=== PATIENT | female | born 1950 | race African-American/Black ===

== ENCOUNTER → 2018-02-15 | Outpatient (CLI) | payer OTHER ==
[~2018-02-15] MED LIST: ARANESP 6060 MCG/0.1 INJECTION; ASPIR 8181 MG PO; CALCITRIOL0.25 MCG PO; LISINOPRIL10 MG PO; LOPRESSOR50 PO; NEPHROCAPS SOFT1 CAP PO; NORVASC5 MG PO; PROTONIX40 M1 PO; TOPROL XL50 MG PO
[2018-02-15 10:24] VITALS: BP 139/83; BP 150/90
[2018-02-15 12:46] VITALS: BP 146/95; BP 150/88; BP 150/90
== END ==
LOC: OPONC 06:26
DX: N18.9 Chronic kidney disease, unspecified (principal); D63.1 Anemia in chronic kidney disease
CPT/HCPCS: 91030

== ENCOUNTER → 2018-03-29 | Outpatient (CLI) | payer OTHER ==
[~2018-03-29] VITALS: Ht 167.6 cm; Wt 65.8 kg
[~2018-03-29] MED LIST changes: +RENAL CAPS SOFTG1 MG PO
--- NOTE | ~2018-03-29 | P ---
[facility] [place] [address] PROCEDURE REPORT Name: IZA SINCLAIR Room #: REG [facility].#: [id number] Admission: 03/29/18 Attend Phys: Moshe Lopez MD Discharge: Date of : 50 Report #: [id number] THIS REPORT FOR: //name// CC: Torin Mitchell DO Moshe Chavira MD BRIEF HISTORY: The patient is a 67-year-old woman with recent rectal bleeding. PREOPERATIVE DIAGNOSIS: Rectal bleeding. POSTOPERATIVE DIAGNOSIS: Colon polyps x 2. MEDICATIONS: Deep sedation with propofol per anesthesia. SPECIMENS: 1. Polyp at 40 cm. 2. Polyp at 25 cm. ESTIMATED BLOOD LOSS: 3 mL. PROCEDURE: Colonoscopy to the cecum and terminal ileum with biopsy. FINDINGS: Prior to propofol sedation, procedure of colonoscopy was discussed with the patient as well as potential risks and its complications. She indicates she understands and desires to proceed. With the patient in the left lateral decubitus position, digital examination was completed, which revealed no abnormalities. Subsequently, the Olympus video colonoscope was introduced in the rectum, advanced under direct vision to the cecum. Done with minimal difficulty. The cecum was identified by the ileocecal valve and the appendiceal orifice. I was able to visualize the distal segment of terminal ileum, which was inspected and noted to be unremarkable. At that point, the scope was slowly withdrawn and careful circumferential views obtained including retroflexing the scope in the ascending colon. Upon slow withdrawal of the scope, the prep was good. Mucosa was within normal limits, normal vascular pattern and normal light reflex. As we withdrew the scope, no abnormalities were noted until the sigmoid colon was reached and at 40 cm, a diminutive polyp seen and removed by biopsy and another diminutive polyp was seen and removed by biopsy at 25 cm. The scope was further withdrawn. No additional abnormalities were seen. The scope was withdrawn in the rectum. No abnormalities were seen. However, upon retroflexion, there was a small area of erythematous mucosa, which may be an area of mild mucosal prolapse. No bleeding was seen. Significant hemorrhoids were not seen. The scope was withdrawn. The patient tolerated the procedure well. [facility] [address] [place] [address] PROCEDURE REPORT Name: IZA SINCLAIR Room #: REG [facility].#: [id number] Admission: 03/29/18 Attend Phys: Moshe Lopez MD Discharge: Date of : 50 Report #: [id number] CONDITION OF THE PATIENT UPON DISCHARGE: Following procedure, the patient drowsy, aroused, conversant and will be discharged to home when fully ambulatory. INSTRUCTIONS TO THE PATIENT AND FAMILY AT THE TIME OF DISCHARGE: As far as the bleeding, it likely came from the anal canal or possibly from a small focal area of mucosal prolapse. Suggest high fiber diet. We will follow up on the pathology of the polyps. If one or both polyps are adenomatous, she should return in 5 years. If neither is adenomatous, then 10 years would be indicated. She will return to care of Dr. Mitchell and Dr. Toño Chavira Withdrawal time from cecum was 14 minutes 47 seconds. By: 1247 [id number] Moshe Lopez MD /nt
--- NOTE | ~2018-03-29 | P ---
[facility] [place] [address] PROCEDURE REPORT Name: IZA SINCLAIR Room #: REG [facility].#: [id number] Admission: 03/29/18 Attend Phys: Moshe Lopez MD Discharge: Date of : 50 Report #: [id number] THIS REPORT FOR: //name// CC: Torin Mitchell DO Moshe Chavira MD BRIEF HISTORY: The patient is a 67-year-old woman with previous history of ulcer disease. She also has a history of abnormal appearing antrum. She returns for followup endoscopic evaluation of her antrum due to the abnormalities noted on previous exam. She also recently has had rectal bleeding. PREOPERATIVE DIAGNOSIS: Abnormal antrum for followup. POSTOPERATIVE DIAGNOSES: 1. Erosive antral gastritis. 2. Thickened folds of antrum of stomach. 3. Erosive duodenitis. 4. Small hiatus hernia. 5. Esophagitis. MEDICATIONS: Deep sedation with propofol per anesthesia. SPECIMEN: Biopsies of thickened folds of antrum. ESTIMATED BLOOD LOSS: 3 mL. PROCEDURE: EGD with biopsy. FINDINGS: Prior to propofol sedation, the procedure of upper endoscopy was reviewed with the patient as well as potential risks and its complications. She indicates she understands and desires to proceed. With the patient in the left lateral decubitus position, the Olympus video endoscope was inserted in the cervical esophagus without difficulty. Examination of this organ through its entire length revealed normal esophageal mucosa down to the squamocolumnar junction. At the squamocolumnar junction, there was a mild esophagitis. No strictures or masses were seen. Intermittently, a small hiatus hernia was seen as well. The scope was advanced fully into the stomach, was examined on end view as well as retroflexed views. Examination of the proximal stomach revealed the hiatus hernia. No other abnormalities were seen. Examination of distal stomach revealed scattered erosions. There was also some fullness of the folds, but no mass effect was seen. Multiple biopsies obtained. The pylorus was normal. Examination of duodenal bulb revealed erosions in the duodenal bulb and there were also [facility] [address] [place] [address] PROCEDURE REPORT Name: YAHIRIZA Room #: REG Yusra Cortez#: [id number] Admission: 03/29/18 Attend Phys: Moshe Lopez MD Discharge: Date of : 50 Report #: [id number] erosions in the second portion of duodenum. No ulcers were seen. No strictures or masses were seen. Third portion of duodenum was normal. At that point, the scope was slowly withdrawn and careful circumferential views confirmed the above findings. The patient tolerated the procedure well. CONDITION OF THE PATIENT UPON DISCHARGE: Following procedure, the patient drowsy and prepared for colonoscopy. INSTRUCTIONS TO THE PATIENT AND FAMILY AT THE TIME OF DISCHARGE: The patient with findings as noted above. We will follow up on the pathology. She does take aspirin, which is likely the cause of the erosions. We will place her on omeprazole 20 mg daily. We will proceed with colonoscopy at this time. By: 1216 0522 Moshe Lopez MD /nt
--- NOTE | ~2018-03-29 | PATH ---
[facility] [address] [address] PATHOLOGY RPT PROCEDURE Name: BEAR SINCLAIR Room #: REG FELIPE Cortez#: [id number] Admission: 03/29/18 Date of : 50 Discharge: Report #: [id number] Path Case #: [id number] [facility] Accession Number: [id number] . 01 Material submitted: . PART A: BX OF THICKENED FOLD - EGD PART B: BX OF POLYP AT 40 CM - COLON PART C: BX OF POLYP AT 25 CM - COLON . 01 Clinical history: . Pre-OP DX: Blood in stools Post-OP DX: Gastritis, colon polyps . 02 Diagnosis: A. Gastric cardia-type mucosa, thickened folds, endoscopic biopsy: - Mild chronic inflammation. - Negative for intestinal metaplasia, atrophy, or dysplasia. . B. Polyp, at 40 cm, endoscopic biopsy: - Compatible with a hyperplastic polyp. - Negative for dysplasia. . C. Polyp, at 25 cm, endoscopic biopsy: - Hyperplastic polyp. - Negative for dysplasia. (IUV:stephanie; 04/01/2018) QMS/04/01/2018 . 02 Electronically signed: . Emily Wong MD, Pathologist NPI- [id number] . 01 Gross description: . A. Received in formalin labeled "Bear Sinclair, BX of thickened folds," are 4 segments of marino soft tissue measuring 1.3 x 1.1 x 0.2 cm in aggregate dimensions and ranging from 0.4 to 0.5 cm in maximum dimension. The specimen is submitted entirely in cassette A1. . B. Received in formalin labeled "Bear Sinclair, BX of polyp at 40 cm," is a single segment of marino soft tissue measuring 0.4 cm in maximum dimension. The specimen is submitted entirely in cassette B1. . C. Received in formalin labeled "Bear Sinclair, BX of polyp at 25 cm," are 2 segments of marino soft tissue measuring 0.6 x 0.3 x 0.2 cm in aggregate dimensions and ranging from 0.2 to 0.4 cm in maximum dimension. The specimen is submitted entirely in cassette C1. (TSD; 03/29/2018) [place] [address] PATHOLOGY RPT PROCEDURE Name: BEAR SINCLAIR [place] Room #: REG CLYusra Crotez#: [id number] Admission: 03/29/18 Date of : 50 Discharge: Report #: [id number] Path Case #: [id number] TOB/TOB . 02 Pathologist provided ICD-10: K29.50, K63.5 . 02 CPT . 786827, 552304, 287498 Performed at: [address], [place] [id number] MD Mike Curry MD Phone: [phone] Performed at: [address] [id number] MD Emily Wong MD Phone: [phone]
== END | disposition home or self-care (01) ==
LOC: GI 09:06
DX: K63.5 Polyp of colon (principal); K29.50 Unspecified chronic gastritis without bleeding; K29.80 Duodenitis without bleeding; K44.9 Diaphragmatic hernia without obstruction or gangrene; K20.9 Esophagitis, unspecified; K31.89 Other diseases of stomach and duodenum; I12.9 Hypertensive chronic kidney disease with stage 1 through stage 4 chronic kidney disease, or unspecified chronic kidney disease; N18.6 End stage renal disease; E78.5 Hyperlipidemia, unspecified; D64.9 Anemia, unspecified; Z79.899 Other long term (current) drug therapy; Z98.890 Other specified postprocedural states; Z79.82 Long term (current) use of aspirin; Z87.891 Personal history of nicotine dependence; Z90.711 Acquired absence of uterus with remaining cervical stump

== ENCOUNTER 2018-07-24 11:46 | Inpatient (IN) | payer OTHER ==
[~2018-07-24] VITALS: Ht 165.1 cm; Wt 70.3 kg
[2018-07-24 11:46] VITALS: BP 95/67
[2018-07-24] MEDS ORDERED: RENA-VITE RX T1 EACH PO (12:03)
--- NOTE | 2018-07-24 12:18 | NUR ---
PROVIDER AT BEDSIDE FOR INITIAL EVAL
[2018-07-24 12:22] LABS: URINE BILIRUBIN NEGATIVE (Negative); URINE BLOOD NEGATIVE (Negative); URINE CLARITY CLEAR; URINE COLOR YELLOW; URINE GLUCOSE-RANDOM* NEGATIVE (Negative); URINE KETONES TRACE (Negative); URINE LEUKOCYTES-REFLEX NEGATIVE (Negative); URINE NITRITE-REFLEX NEGATIVE (Negative); URINE PROTEIN (DIPSTICK) 3+ (Negative); URINE UROBILINOGEN 0.2 E.U./dl (0.2-1.0)
[2018-07-24 12:26] LABS: ABSOLUTE NEUTROPHILS 8.2 thou/uL (1.4-8.2); EOSINOPHILS 0.3 % (0.0-3.0); MCV 88.5 fL (80.0-100.0)
[2018-07-24 12:27] LABS: BASOPHILS 0.9 % (0.0-2.0); LYMPHOCYTES 8.3 % (24.0-44.0); MCH 27.9 pg (26.0-34.0); MCHC 31.5 g/dL (28.0-37.0); MONOCYTES 3.6 % (1.0-8.0); PLATELET COUNT 310 thou/uL (150-400); POLYS 86.9 % (36.0-66.0); RBC 2.19 mil/uL (4.20-5.00); RDW 18.9 % (10.5-14.5); WBC 9.4 thou/uL (4.0-11.0)
[2018-07-24 12:32] LABS: CALCIUM 9.1 mg/dL (8.5-10.1); POTASSIUM 4.2 mmol/L (3.5-5.1)
[2018-07-24 12:34] LABS: HEMATOCRIT 19.4 % (37.0-47.0); HEMOGLOBIN 6.1 gm/dL (12.0-15.0)
[2018-07-24 12:34] LABS: CASTS None Seen /LPF (None Seen); SQUAMOUS >10 Many /LPF (0-3); URINE WBC-REFLEX 0-5 Rare /HPF (0-5)
[2018-07-24 12:35] LABS: BACTERIA-REFLEX 1-9 Few /HPF (None Seen); CRYSTALS None Seen /LPF (None Seen); URINE RBC None Seen /HPF (0-2); YEAST-REFLEX Present (None Seen)
[2018-07-24 12:39] LABS: ALBUMIN 3.2 g/dL (3.4-5.0); TOTAL BILIRUBIN 0.3 mg/dL (<0.1-1.0); TOTAL PROTEIN 6.7 g/dL (6.4-8.2)
[2018-07-24 15:15] VITALS: BP 130/83
[2018-07-24 15:29] VITALS: BP 146/82
[2018-07-24 15:44] VITALS: BP 156/100
[2018-07-24 16:46] LABS: % SATURATION 59 % (20-39); IRON 117 ug/dL (50-170); TIBC 197 ug/dL (250-450)
[2018-07-24 18:01] VITALS: BP 121/80
--- NOTE | 2018-07-24 19:36 | NUR ---
Recieved pt from the ER IV fluids started. X-ray done. Blood transfusion started and still ongoing. VS stable. Cosent signed for endoscopic video capsule. Pt is informed that she has to be on npo midnight tonight.
[2018-07-24 20:34] VITALS: BP 158/93
[2018-07-25] VITALS (8 sets, daily range): BP systolic 123–164; BP diastolic 69–94
[2018-07-25 05:55] LABS: WBC 6.5 thou/uL (4.0-11.0)
[2018-07-25 05:56] LABS: MCH 29.2 pg (26.0-34.0); MCHC 33.9 g/dL (28.0-37.0); RBC 1.98 mil/uL (4.20-5.00); RDW 17.6 % (10.5-14.5)
[2018-07-25 06:01] LABS: HEMOGLOBIN 5.8 gm/dL (12.0-15.0)
[2018-07-25 06:06] LABS: CALCIUM 8.4 mg/dL (8.5-10.1); CREATININE 5.2 mg/dL (0.6-1.0); POTASSIUM 3.8 mmol/L (3.5-5.1)
--- NOTE | 2018-07-25 08:21 | NUR ---
progress pt progressing, denies pain. slept most of shift, hgb 5.8 this am and hct 17.8 yasmin jacome notified ordered 1 unti prbc's, plans to have egd and swallow camera capsule this am.
--- NOTE | 2018-07-25 11:18 | NUR ---
TRANSFUSED 1 UNIT PRBC'S AND TOLERATED WELL WITH NO S/S OF REACTION NOTED. PATIENT RESTING QUIETLY IN BED THIS AM. DENIES PAIN. DR. CALIX VISITED AND ORDERED DIALYSIS TODAY. NOTIFIED THE DIALYSIS TEAM. STAND BY ASSIST TO BATHROOM. NPO FOR EGD AND CAPSULE. CONSENTS SIGNED.
[2018-07-25 13:10] LABS: HEMATOCRIT 19.1 % (37.0-47.0); HEMOGLOBIN 6.3 gm/dL (12.0-15.0)
--- NOTE | 2018-07-25 13:17 | NUR ---
CALLED STAT [facility] TO DR. ALEXANDRA. RECEIVED ORDERS TO TRANSFUSE ONE MORE UNIT OF RBC'S TODAY. WILL TRANSFUSED AFTER EGD.
[2018-07-26] VITALS (13 sets, daily range): BP systolic 96–140; BP diastolic 65–82
--- NOTE | 2018-07-26 03:49 | NUR ---
ASSUMED CARE OF PATIENT AROUND 1900. PATIENT IN SINUS RHYTHM/SINUS TACHYCARDIA. HD COMPLETED AROUND 2200, PATIENT TOLERATED WELL. 2 UNITS OF BLOOD GIVEN DURING DIALYSIS. REDRAW COMPLETED [address] MCQUEEN'S ORDER, NO OTHERS PREVIOUSLY WRITTEN FOR REDRAW/RECHECK OF H/H. PATIENT C/O NAUSEA AROUND 0100, ZOFRAN ADMINISTERED. 0220, PT C/P NAUSEA AGAIN, CONTACTED FOOD SCIENTIST SCOTTY, ORDERS RECEIVED FOR COMPAZINE, ADMINISTERED. PATIENT RESTLESS IN BED, UNABLE TO LAY STILL FOR >5 MINUTES. AFTER ABOUT AN HOUR, PATIENT ABLE TO RELAX AGAIN. RESTING NOW. PATIENT NPO AT MIDNIGHT FOR EGD. WILL CONTINUE TO MONITOR.
[2018-07-26 05:48] LABS: LYMPHOCYTES 17.6 % (24.0-44.0)
[2018-07-26 05:51] LABS: ABSOLUTE NEUTROPHILS 4.4 thou/uL (1.4-8.2); BASOPHILS 0.4 % (0.0-2.0); EOSINOPHILS 0.9 % (0.0-3.0); MCH 29.4 pg (26.0-34.0); MCHC 33.9 g/dL (28.0-37.0); MCV 86.9 fL (80.0-100.0); MONOCYTES 10.5 % (1.0-8.0); PLATELET COUNT 156 thou/uL (150-400); POLYS 70.6 % (36.0-66.0); RBC 2.04 mil/uL (4.20-5.00); RDW 15.8 % (10.5-14.5); WBC 6.2 thou/uL (4.0-11.0)
[2018-07-26 05:53] LABS: HEMATOCRIT 17.7 % (37.0-47.0)
[2018-07-26 06:02] LABS: CALCIUM 7.7 mg/dL (8.5-10.1); POTASSIUM 4.2 mmol/L (3.5-5.1)
[2018-07-26 06:15] LABS: CREATININE 3.2 mg/dL (0.6-1.0)
--- NOTE | 2018-07-26 07:10 | NUR ---
LOW HEMOGLOBIN, ANGIE FAJARDO CONTACTED. ONE UNIT OF BLOOD TO BE GIVEN, STARTED AROUND 0645.
[2018-07-26 09:58] LABS: HEMATOCRIT 22.3 % (37.0-47.0); HEMOGLOBIN 7.5 gm/dL (12.0-15.0)
--- NOTE | 2018-07-26 11:42 | NUR ---
Assumed pt care at 0715. pt was a/o x 4 with no issues. she was up at ayesha. pt on blood transfusion at shift change blood finished at 0900. and the iv was leaking so it was d/c. pt went to pre-op for EGD at 0930, they were informed for pts bleeding issue and that another PIV was not started yet
[2018-07-26 18:25] LABS: HEMATOCRIT 20.5 % (37.0-47.0)
--- NOTE | 2018-07-26 18:35 | NUR ---
END OF SHIFT NOTE. VSS. EGD DONE TODAY. TO ICU POST OP. PLAN ANTHTER EGD IN AM. HD NOTIFIED TO RUN IN AFTERNOON. PT DENIES PAIN KEPT NPO. 24H URINE IN PROGRESS.
[2018-07-26 19:56] LABS: APTT 30.7 Seconds (24.5-32.8); PROTIME 10.6 Seconds (9.3-11.4)
[2018-07-27] VITALS (60 sets, daily range): BP systolic 63–140; BP diastolic 28–92
--- NOTE | 2018-07-27 03:00 | NUR ---
AT APPROXIMATELY 0200 AM, PT WAS UP TO BATHROOM, HAD A LARGE MELENA LOOSE/LIQUID STOOL. PT C/O BEING DIZZY, CALLED JAME RN TO HELP PLACE PT IN BED. PT HAD ANOTHER BM IN THE BED.VS TAKEN, BP IN THE 70S. PT COMPLAINED AT NAUSEA AND MID EPIGASTRIC PAIN. WHILE RESTLESS IN BED. TALKED TO SCOTTY ADAMS AND DR. MALDONADO, ORDERS WERE RECIEVED FOR BOLUS NS. TALKED TO DR. MONTES DE OCA DURING THE NIGHT, ANOTHER NS BOLUS ORDER AND ORDERS TO TRANSFUSED WERE GIVEN. PT WAS GIVEN A UNIT OF BLOOD. ANGIE FAJARDO WAS AT BEDSIDE DURING THIS TIME. ANTIEMETICS WERE ALSO ADMINISTERED. PT DROWSY, COMPLAINING ABOUT WANTING SOMETHING TO DRINK. PRESSURES WERE BACK UP THE 100S. WILL CONTINUE TO MONITOR.
--- NOTE | 2018-07-27 06:00 | NUR ---
PT DROWSY AT CURRENT. 2 UNITS OF BLOOD GIVEN DURING THE NIGHT. PRESSURES ARE BACK UP. NO PAIN NOTED WHILE ASLEEP. PROTONIX GTT INFUSING. FALL PRECAUTIONS IN PLACE. NPO DUIRNG THE NIGHT, EGD IN THE AM. WILL CONTINUE TO MONITOR PT.
[2018-07-27 06:35] LABS: ABSOLUTE NEUTROPHILS 7.5 thou/uL (1.4-8.2); BASOPHILS 0.4 % (0.0-2.0); EOSINOPHILS 0.1 % (0.0-3.0); HEMATOCRIT 22.9 % (37.0-47.0); HEMOGLOBIN 7.6 gm/dL (12.0-15.0); LYMPHOCYTES 8.1 % (24.0-44.0); MCH 28.8 pg (26.0-34.0); MCHC 33.3 g/dL (28.0-37.0); MCV 86.6 fL (80.0-100.0); PLATELET COUNT 117 thou/uL (150-400); POLYS 86.4 % (36.0-66.0); RBC 2.65 mil/uL (4.20-5.00); RDW 15.3 % (10.5-14.5); WBC 8.7 thou/uL (4.0-11.0)
[2018-07-27 06:50] LABS: ALBUMIN 1.8 g/dL (3.4-5.0); CALCIUM 7.4 mg/dL (8.5-10.1); PHOSPHORUS 3.3 mg/dL (2.5-4.9); POTASSIUM 5.7 mmol/L (3.5-5.1)
[2018-07-27 06:55] LABS: CREATININE 4.2 mg/dL (0.6-1.0)
--- NOTE | 2018-07-27 14:06 | NUR ---
PT REFUSED 1200 BLOOD SUGAR CHECK. PT'S BLOOD SUGARS HAVE BEEN WNL
[2018-07-27 18:07] LABS: HEMOGLOBIN 6.8 gm/dL (12.0-15.0)
[2018-07-27 18:09] LABS: HEMATOCRIT 19.3 % (37.0-47.0)
[2018-07-27 23:56] LABS: HEMATOCRIT 20.3 % (37.0-47.0); HEMOGLOBIN 7.1 gm/dL (12.0-15.0)
[2018-07-28] VITALS (18 sets, daily range): BP systolic 121–186; BP diastolic 73–116
--- NOTE | 2018-07-28 01:59 | NUR ---
PATIENT ASSESSED AND IS ALERT X 4. SKIN WARM AND DRY. RESP EVEN AND UNLABORED. HAS A RIGHT TEMP DIALYSIS CATH IN RIGHT SIDE OF JUGULAR. HAS A IJ IN LEFT SIDE OF NECK THAT FLUSHES WELL. TURNS SELF IN BED. RIGHT UPPER ARM SHUT ALSO. HEMOGLOBIN WAS LOW AGAIN. TELE- SHOWS ST. VOIDS PER BEDPAN. HAS A PROTONIX GTT GOING. HEMOGLOBIN WAS 6.[address]ED AND RECEIVED ORDERS TO TRANSFUSE 1 UNIT OF BLOOD. REMAINS ON CLEAR LIQ DIET. BS WAS 73 AT 1811. POP GIVEN WITH PARVEEN. BS RECHECKED AT 0000 AND WAS 84. RESTING WELL. TOLERATED UNIT OF BLOOD WELL. RECHECKED HEMOGLOBIN AND WAS 7.1. VS SHOWN IN CHART. CONT PLAN OF CARE.
--- NOTE | 2018-07-28 04:54 | NUR ---
Dr tanmay jacome called on elevated bp. She wants to recheck in 1 hour. Had problems last night bottoming out.will monitor BP.
--- NOTE | 2018-07-28 05:39 | NUR ---
PATIENT VOIDING WELL. NO BM THIS SHIFT. BP WAS 170/103, THEN 169/90. DR BUNCH AND FRANCIS WANTED US TO WAIT AND RECHECK IN 1 HOUR. NOW AT 0554 IS 129/77 HR 91. DENIES ANY NEEDS. SLEEPING. CONT PLAN OF CARE.
--- NOTE | 2018-07-28 07:56 | HC ---
[facility] [place] [address] CONSULTATION Name: IZA SINCLIAR Room #: 246-P ADM IN M.R.#: [id number] Admission: 07/24/18 Attend Phys: Trenton Packer MD Discharge: Date of : 50 Report #: [id number] THIS REPORT FOR: //name// CC: Trenton Mitchell DO REQUESTING PHYSICIAN: Trenton Packer MD HISTORY OF PRESENT ILLNESS: The patient is a 67-year-old female, seen in the ICU. She is admitted with nausea and vomiting, was found to be anemic and has had some melanotic stools. Yesterday, she had an EGD with large clot burden in stomach. She does have a history of gastric ulcer. She has received approximately 7 units and she was admitted on the . At this time, she is in the ICU, quite sleepy from lack of sleep, is able to nod her head to simple questions. At this time, she says her stomach still feels slightly upset or nauseous. Her whole abdomen maybe feels like a little bit of cramping. She does not feel like eating or drinking, has not had any fevers or chills that she is aware of. Recently had not had any new arm or leg swelling. Noone in the family has been sick with any specific illnesses lately. PAST MEDICAL HISTORY: Notable for history of chronic renal failure, hypertension, appendectomy, tonsillectomy in the past, partial hysterectomy in the past, dialysis since 10/2013, has a right upper arm fistula, also some osteodystrophy, secondary hyperparathyroidism. She has had a history of gastric ulcer and GI bleeding in the past, has also had left carpal tunnel difficulties. ALLERGIES: No known drug allergies. SOCIAL HISTORY: Single, never . Quit smoking number of years back, in the past had worked at [employer]. No alcohol history. FAMILY HISTORY: No blood disorders per the patient. CURRENT MEDICATIONS: Include metoclopramide 5 mg IV q. 6 hours, pantoprazole drip, Compazine 10 mg IV q. 6 hours p.r.n., flu vaccine administered, Tylenol p.r.n., ondansetron p.r.n. RADIOLOGIC DATA: Radiologic studies this admit include KUBs, which had nonobstructive bowel gas pattern without evidence of free air. Also note that there was a noncalcified nodule, 1.7 cm, in the left lung base. We will need to consider CT chest when appropriate. LABORATORY WORK: This admit BUN and creatinine have been 122 and 4.2 respectively. Note the liver functions have been unremarkable [place] [address] CONSULTATION Name: IZA SINCLAIR Room #: 246-P ADM IN M.R.#: [id number] Admission: 07/24/18 Attend Phys: Trenton Packer MD Discharge: Date of : 50 Report #: [id number], total bilirubin is 0.3, calcium 7.4, alkaline phosphatase 74, ALT 21, albumin 1.8 on admission, had been 3.1. Iron panels have been replete with an iron of 117, TIBC 197, slightly low, percent saturation 59, ferritin was 771. Coags normal. White blood count 8.7, hemoglobin on admit was 6.1. The patient has received approximately 6 units of blood so far. Currently this morning at 6:30 a.m., her hemoglobin was 7.6. MCV has been 86.6 range. Platelet count on admission 310, currently 117. Differential nonacute. UA negative for leukocytes, negative for nitrite. PHYSICAL EXAMINATION: VITAL SIGNS: Height is 5 feet 5 inches, 165.1 cm, weight 150.5 pounds or 68.3 kg. Recent blood pressure 109/72, respirations 18, O2 sat on room air 96, temperature 98.1 axillary, earlier 100.2 orally, pulse 81. MOOD: The patient is tired, but appears to nod her head appropriately. HEENT: Face is symmetrical. LUNGS: Appear to be clear with symmetric, unlabored expansion without rhonchi or wheezes. HEART: Appears regular rate. ABDOMEN: Nondistended, no masses, slightly tender on exam. NECK: No enlarged lymph nodes in the supraclavicular, cervical, axillary region. EXTREMITIES: Without clubbing, cyanosis. There is some trace edema. ASSESSMENT AND PLAN: 1. Anemia secondary to gastrointestinal bleed. Agree with transfusion to keep hemoglobin more than 7. 2. Recent esophagogastroduodenoscopy that showed large clot burden in stomach with plans for repeat esophagogastroduodenoscopy this morning. Agree with that also patient on Protonix. 3. End-stage renal disease, on dialysis. Defer to renal. 4. Noncalcified left lung nodule. We will need a CT chest at some point if this has not been evaluated in the past. 5. Hypertension. Meds per others. 6. We will follow with you. <ELECTRONICALLY SIGNED> By: Nawaf Epps MD 07/28/18 [id number] Nawaf Epps MD /nt
[2018-07-28 08:11] LABS: HEMATOCRIT 20.3 % (37.0-47.0); HEMOGLOBIN 7.1 gm/dL (12.0-15.0)
[2018-07-28 08:34] LABS: ALBUMIN 1.9 g/dL (3.4-5.0); CALCIUM 7.6 mg/dL (8.5-10.1); CREATININE 3.5 mg/dL (0.6-1.0); POTASSIUM 4.1 mmol/L (3.5-5.1); TOTAL BILIRUBIN 0.3 mg/dL (<0.1-1.0)
--- NOTE | 2018-07-28 11:26 | NUR ---
ASSESSMENTS COMPLETED AND DOCUMENTED. PT AOX4, NO S/SX OF CARDIAC OR RESP DISTRESS. NO COMPLAINTS VOICED. PT HUNGRY. TOLERATING CLEAR LIQUID DIET. NO S/SX OF BLEEDING. WILL GET DIAYLSIS IN AM AND FISTULAGRAM. TRANSFERING OUT OF ICU TO MED SURG. WILL CONTINUE TO MONITOR PER ORDERS.
--- NOTE | 2018-07-28 16:20 | NUR ---
PT WAS TRANSFFERED FROM ICU. DX ANEMIA, HYPOTENTION. VSS. AXOX4. TRIPLE LUMEN LJ CENTRAL LINE PATENT AND DRAWS BLOOD WELL. TEMPORARY DIALTSIS PORT ON RJ INTACT AND TAPED. L ARM HAS 2 PIV ACCESS. TRIED TO REMOVE 1 D/T NONUSE. PT REFUSED. EXPLAINED BENEFITS AND RISKS. STILL REFUSES. NO S/S ACUTE DISTRESS NOTED OR REPORTED AT THIS TIME. DENIES CHILLS,NAUSE,VOMITING,CHEST PAIN. C/O LEG PAIN. ADMIN TYLENOL. REPORTS RELIEF. BLOOD SAMEPLE PENDING FOR H&H. WILL CONT TO MONITOR CLOSELY FOR ANY CHANGES.
[2018-07-28 16:29] LABS: HEMATOCRIT 21.3 % (37.0-47.0); HEMOGLOBIN 7.3 gm/dL (12.0-15.0)
--- NOTE | 2018-07-28 23:10 | NUR ---
PT ALERT AND ORIENTED X 4. LIJ DRESSING C/D/I. RIJ TEMPORARY DIALYSIS CATHETER DRESSING C/D/I. BLOOD PRESSURE 148/103 AT START OF SHIFT. RECHECKED MANUALLY AND IT WAS 186/116 AT 1950. LOYDA FAJARDO NP NOTIFIED WITH ORDERS RECEIVED. METOPROLOL GIVEN ORDERED. BLOOD PRESSURE DOWN TO 166/95 AT 2130. PT DENIES PAIN OR DISCOMFORT. PT CHECKED ON HOURLY ROUNDS.
[2018-07-29 04:25] VITALS: BP 104/92
[2018-07-29 05:49] LABS: ABSOLUTE NEUTROPHILS 3.3 thou/uL (1.4-8.2); BASOPHILS 0.3 % (0.0-2.0); EOSINOPHILS 1.8 % (0.0-3.0); HEMATOCRIT 20.6 % (37.0-47.0); LYMPHOCYTES 12.9 % (24.0-44.0); MCH 29.8 pg (26.0-34.0); MCHC 33.7 g/dL (28.0-37.0); MCV 88.5 fL (80.0-100.0); MONOCYTES 9.4 % (1.0-8.0); PLATELET COUNT 116 thou/uL (150-400); POLYS 75.6 % (36.0-66.0); RBC 2.33 mil/uL (4.20-5.00); RDW 15.3 % (10.5-14.5); WBC 4.4 thou/uL (4.0-11.0)
[2018-07-29 06:07] LABS: CALCIUM 7.8 mg/dL (8.5-10.1); CREATININE 4.4 mg/dL (0.6-1.0); POTASSIUM 4.2 mmol/L (3.5-5.1)
[2018-07-29 07:55] VITALS: BP 152/80
--- NOTE | 2018-07-29 11:02 | NUR ---
Spoke with Dr. Christensen regarding doing Fistula Declot on patient today. Regarding admission with a GI bleed Dr. Christensen reports he would need to give pt TPA and Heparin in order to proceed with procedure placing the pt at risk for a re-bleed. Dr. Christensen suggests waiting until 07/31 to preform declot of fistula. [employer] notifed pt's RN of plan. Also gave Dr. Christensen's phone number to RN in case any physicans would have further questions.
--- NOTE | 2018-07-29 12:10 | NUR ---
PT ADMITTED RELATED TO ANEMIS, GASTROENTERITIS, GUIAC POS STOOL. CM REVIEWED CHART AND SPOKE WITH CARE TEAM. CM MET WITH PT AT BEDSIDE THIS DAY. PT IS A&O X4. CM ROLE INTRODUCED. PT INDICATED SHE LIVES IN AN APARTMENT ALONE WITH ELEVATOR ACCESS. 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 PT INDICATED SHE GOES TO [facility] MW 4:10 CHAIR TIME. PT USES [facility]ARE. PT INDICATED SHE ANTICIPATES DISCHARGING HOME ONCE MEDICALLY STABLE. UPDATED FLOW SHEETS WILL NEES TO BE SENT TO [facility] AT .
[2018-07-29 15:47] VITALS: BP 171/101; BP 180/104
[2018-07-29 15:57] VITALS: BP 175/80; BP 187/102
[2018-07-29 18:03] LABS: HEMATOCRIT 28.2 % (37.0-47.0); HEMOGLOBIN 9.8 gm/dL (12.0-15.0)
[2018-07-29 19:34] VITALS: BP 148/97
--- NOTE | 2018-07-29 20:13 | NUR ---
Received pt on NPO since she was suppose to go and have IR dialysis fistogram, which was moved to probably the [address] Christensen. 2 units of RBC ordered, given while on dialysis. Dialysis nurse gave the 2 units. Diet ordered for renal. Dr. Vance (GI) was consulted. Still pending for a shannon sample. No furhter issues identified or verbalized.
[2018-07-30 04:04] VITALS: BP 148/95
--- NOTE | 2018-07-30 05:17 | NUR ---
ASSUMED PT CARE AT 1900. PT A&O X4, ABLE TO MAKE NEEDS KNOWN. MEDICATED PER ORDERS FOR C/O BILAT LEG PAIN WITH RELIEF VERBALIZED. NO BM THIS SHIFT, STILL IN NEED OF STOOL SAMPLE. TOLERATING DIET, DENIES N/V. DAUGHTER CALLED IN EVENING TO CHECK ON PT. WILL CONTINUE TO MONITOR PT.
[2018-07-30 06:54] LABS: HEMATOCRIT 25.1 % (37.0-47.0); HEMOGLOBIN 8.5 gm/dL (12.0-15.0); MCH 29.9 pg (26.0-34.0); RBC 2.85 mil/uL (4.20-5.00); RDW 15.5 % (10.5-14.5); WBC 3.5 thou/uL (4.0-11.0)
[2018-07-30 07:07] LABS: ALBUMIN 2.1 g/dL (3.4-5.0); CALCIUM 7.6 mg/dL (8.5-10.1); PHOSPHORUS 3.3 mg/dL (2.5-4.9); POTASSIUM 3.6 mmol/L (3.5-5.1)
[2018-07-30 07:08] LABS: CREATININE 3.4 mg/dL (0.6-1.0)
[2018-07-30 08:25] VITALS: BP 171/104
[2018-07-30 12:10] VITALS: BP 156/105
[2018-07-30 16:22] VITALS: BP 138/83
[2018-07-30 19:22] VITALS: BP 150/101
[2018-07-30 19:23] VITALS: BP 156/100
[2018-07-31 04:20] VITALS: BP 150/101
[2018-07-31 06:01] LABS: HEMATOCRIT 24.8 % (37.0-47.0); HEMOGLOBIN 8.4 gm/dL (12.0-15.0); MCH 30.1 pg (26.0-34.0); MCV 88.7 fL (80.0-100.0); RBC 2.8 mil/uL (4.20-5.00); RDW 15.4 % (10.5-14.5); WBC 4.2 thou/uL (4.0-11.0)
--- NOTE | 2018-07-31 07:30 | NUR ---
Assumed care at 1845. Pt resting in bed. Gave pt tylenol for headache. No identified needs at the moment. Will continue to monitor.
--- NOTE | 2018-07-31 07:51 | NUR ---
ASSUMED CARE OF PT AT 0700. PT ALREADY IN DIALYSIS. CALLED DIALYSIS ABOUT GIVING AM MEDS, ALL AM MEDS HELD. WILL WAIT FOR PT TO RETURN.
--- NOTE | 2018-07-31 11:37 | NUR ---
PT RETURNED TO ROOM FROM DIALYSIS IN STABLE CONDITION. ASSESSMENT COMPLETED AND CHARTED. DENIES N/V/D AND PAIN AT THIS TIME. WILL CONTINUE TO MONITOR.
[2018-07-31 14:08] LABS: UR AMINO LEVULINIC ACID 0.2 mg/24 hr (0.5-5.1)
--- NOTE | 2018-07-31 15:40 | NUR ---
CARE TEAM INDICATED THAT THEY ANTICIPATE PT MAY BE MEDICALLY STABLE TO DISCHARGE TOMORROW. CM TO FOLLOW INDICATED WITH DISCHARGE PLANNING.
[2018-07-31 16:30] VITALS: BP 168/109
[2018-07-31 16:40] LABS: BE(vivo) 2.9 mmol/L (-2 to +3); HCO3 26.4 mmol/L (22.0-26.0); PCO2 35.9 mmHg (35.0-45.0); pH 7.484 (7.360-7.450); sO2 95.1 % (92.0-98.0)
--- NOTE | 2018-07-31 16:42 | NUR ---
BP 168/109, HR 71. PHYSICIAN NOTIFIED ABOUT ELEVATED BP AND INSTRUCTED TO GIVE HELD AM BP MEDS DUE TO DIALYSIS TODAY. MEDS GIVEN ORDERED. WILL CONTINUE TO MONITOR.
--- NOTE | 2018-07-31 16:54 | NUR ---
PT TRANSFERED TO ROOM 223. REPORT GIVEN TO NURSE. PT LEFT IN STABLE CONDITION VIA WHEELCHAIR.
--- NOTE | 2018-07-31 17:19 | NUR ---
PATIENT TRANSFERRED TO THE UNIT AT 1700 FROM 4W. WILL ORIENTATE PATIENT TO THE UNIT AND GET HER SETTLED. PATIENT IS SITTING IN BED WITH CALL LIGHT WITHIN REACH.
[2018-07-31 17:45] VITALS: BP 140/102
[2018-07-31 20:00] VITALS: BP 161/110
[2018-07-31 21:30] VITALS: BP 161/107
--- NOTE | 2018-07-31 23:51 | NUR ---
Pt A/OX4 with flat affect.C/o right side pain LOP 5/10 where the temp dialysis cath goes in stating it's pulling on the skin,reinforced with tape and medicated with Tylenol with relief reported an hr after. Left triple IJ patent and flushes easily,has a fistula on RUE. Requested for the PIV on LAC to be dc d/t availabilty of a central line stating it's hurting her arm,discontinued and a pressure dressing applied.Pt is up ad ayesha,reminded to notify staff if she has a BM for samples,hut placed over toilet.Pt is NPO from midnight for IR declotting fistula in AM. Denies any other needs at this time. Call light/personal items placed within reach and encouraged to call as needed.
[2018-08-01] VITALS (7 sets, daily range): BP systolic 129–155; BP diastolic 81–107
--- NOTE | 2018-08-01 10:39 | NUR ---
ASSUMED CARE OF PATIENT THIS MORNING. PATIENT IS ALERT AND ORIENTED X 4. SHE WAS ASSESSED THIS MORNING. NO ABNORMAL ASSESSMENT FINDINGS. PATIENT HAS A RIGHT ARM FISTULA THAT IS CLOTTED, WILL HAVE DECLOTTED TODAY. LEFT IJ/ RIGHT TEMP CATH FOR DIALSIS. DIALSIS --. PATIENT COMPLAINS OF PAIN IN HER LEFT ARM WHERE ARE CLOTTED FISTULA IS LOCATED. PATIENT GOING TO IR FOR DECLOT OF AV FISTULA. PATIENT LEFT UNIT FOR PROCEDURE AT 1005. CONSENT FORM SIGNED. PATIENT REMAINED NPO FOR PROCEDURE. METOPROLOL GIVEN FOR BP THIS MORNING. ALL OTHER MORNING MEDS HELD.
--- NOTE | 2018-08-01 14:11 | NUR ---
PATIENT RETURNED TO UNIT FROM IR TO DECLOT AV FISTULA AT 1400. SHE WILL RESUME REGULAR DIET TOLERATED. BLOOD PRESSURE WILL BE CHECKED EVERY 30 MINUTES X 1 HR. SITE WILL BE CHECKED FOR BLEEDING, HEMATOMA, THRILL/BRUIT AND DISTAL PULSES. PRESSURE WILL BE APPLIED TO SITE FOR ANY BLEEDING OR HEMATOMA. PATIENT'S VITAL SIGNS WERE CHECKED AND BLOOD PRESSURE IS HIGH WILL GIVE BP MEDICATIONS. PATIENT IS RESTING IN BED.
--- NOTE | 2018-08-01 15:27 | NUR ---
SW reviewed chart and spoke with nursing and attending physician. Pt [facility] to [facility] from . Pt is scheduled to have tunneled catheter placed tomorrow. Plan is for pt to discharge home and resume outpatient dialysis at [facility] when medically stable.
[2018-08-02] VITALS (7 sets, daily range): BP systolic 104–159; BP diastolic 54–82
--- NOTE | 2018-08-02 04:14 | NUR ---
PATIENT ALERT AND ORIENTED X4 WITH A FLAT AFFECT AT TIMES, HOWEVER, COOPERATIVE WITH CARE. UP ADLIB IN ROOM TO BATHROOM. RIGHT UPPER ARM FISTULA WITH A DRY DRESSING HAS A BRUITT AND THRILL. RIGHT IJ DRESSING USED FOR DIALYSIS IS DRY AND INTACT. LEFT IJ DRESSING D/I AND IS PATENT FOR IV MEDICATION. PATIENT HAS BEEN NPO SINCE 235808/01/18 FOR "INTERVENTIONAL RADIOLOGY FOR PLACEMENT OF TUNNELED DIALYSIS CATHETER" TO BE DONE ON 08/02/18. PATIENT HAD A MEDIUM DARK STOOL. C/O UPSET STOMACH WITH NAUSEA AND GIVEN IV ZOFRAN - NO EMESIS. ABLE TO GET SOME SLEEP. WILL MONITOR.
[2018-08-02 07:25] LABS: ALBUMIN 1.7 g/dL (3.4-5.0); CALCIUM 7.6 mg/dL (8.5-10.1); CREATININE 4.7 mg/dL (0.6-1.0); PHOSPHORUS 3.4 mg/dL (2.5-4.9)
--- NOTE | 2018-08-02 09:23 | NUR ---
ASSUMED PT CARE AT 0700. ASSESSED PT AT 0730. PT RESTING IN BED. ALERT/ORIENTED X4. WITHDRAWN AND QUIET. DIALYSIS LINE DRESSING LOOSE, BUT OTHERWISE ASYMPTOMATIC. CVL TO LEFT JUGULAR ASYMPTOMATIC. FISTULA TO RIGHT UPPER ARM NEGATIVE FOR BRUIT. ASSESSMENT IS OTHERWISE NEGATIVE AND IS CHARTED. VSS. DENIES PAIN AT THIS TIME. PT NPO FOR DIALYSIS LINE PLACEMENT. WILL CONTINUE CURRENT CARE.
--- NOTE | 2018-08-02 10:33 | NUR ---
PT BACK FROM IR AT 1005. DROWSY, BUT ORIENTED X4. ORDER OBTAINED FOR PREVIOUS DIET. MEDS GIVEN WITH NO DIFFICULTY. DIALYSIS LINE IS INTACT, SOME BLEEDING NOTED TO GAUZE. LINE IS READY FOR USE ACCORDING TO PHYSICIAN NOTE. VITAL SIGNS STABLE. WILL CONTINUE TO MONITOR.
--- NOTE | 2018-08-02 13:14 | NUR ---
PT DOING WELL THIS SHIFT. VITAL SIGNS STABLE SINCE RETURN FROM IR. TYLENOL GIVEN FOR LEG PAIN. PT FOUND TO BE SLEEPING AFTER THIS MED WAS GIVEN. PT TO GO TO DIALYSIS TODAY AFTER 1:00. PT INFORMED OF THIS PLAN. NO STOOLS NOTED SO FAR TODAY, PT STATES SHE HAD ONE LAST NIGHT THAT WAS BLOODY. WILL CONTINUE TO MONITOR THIS AND OBTAIN SAMPLE IF BM OCCURS. OTHERWISE NO OTHER CONCERNS. WILL CONTINUE TO MONITOR.
[2018-08-02 15:37] LABS: HEMATOCRIT 14.4 % (37.0-47.0); HEMOGLOBIN 4.9 gm/dL (12.0-15.0)
--- NOTE | 2018-08-02 18:06 | NUR ---
PT TO DIALYSIS AT 1345. H&H TO BE DRAWN PRIOR TO START. DIALYSIS NURSE NOTIFIED [facility]. HGB FOUND TO BE CRITICAL AT 4.9. DR. CALIX NOTIFIED. 2 UNITS PRBC TO BE GIVEN IN DIALYSIS. 2 UNITS WERE TAKEN TO NURSE IN DIALYSIS. CONSENT WAS OBTAINED FROM PT.
--- NOTE | 2018-08-03 00:34 | NUR ---
Pt returned from dialysis approx 1914. A/OX4, c/o itching on left arm with hives/rash on area which she reported started after the dialysis catheter placement on right chest. Medicated with Benadryl 50mg PO and reported less itching an hr after. Pt also completed a bed bath and applied some lotion which helped.Pt is up ad ayesha,reminded to notify the nurse if she does have a BM for assessment if still bleeding and agreed to. Denies pain on assessment. VSS. Pt has a Left IJ triple lumen patent and has blood return all lumens,new dialysis catheter on the right chest and a fistula on RUE which is edematous and sore to touch. Pt resting quietly in bed at this time with no distress noted. Will continue to monitor. Encouraged to call for help. Call light/personal items within reach.
[2018-08-03 06:36] LABS: ABSOLUTE NEUTROPHILS 4.1 thou/uL (1.4-8.2); MCV 85.6 fL (80.0-100.0); WBC 5.8 thou/uL (4.0-11.0)
[2018-08-03 06:38] LABS: BASOPHILS 0.7 % (0.0-2.0); EOSINOPHILS 2.5 % (0.0-3.0); HEMATOCRIT 20.4 % (37.0-47.0); LYMPHOCYTES 17.6 % (24.0-44.0); MCH 29.1 pg (26.0-34.0); MONOCYTES 8.5 % (1.0-8.0); PLATELET COUNT 149 thou/uL (150-400); POLYS 70.7 % (36.0-66.0); RBC 2.38 mil/uL (4.20-5.00); RDW 15.7 % (10.5-14.5)
[2018-08-03 06:39] LABS: HEMOGLOBIN 6.9 gm/dL (12.0-15.0)
[2018-08-03 06:47] LABS: ALBUMIN 1.7 g/dL (3.4-5.0); CALCIUM 7.6 mg/dL (8.5-10.1); POTASSIUM 3.5 mmol/L (3.5-5.1)
[2018-08-03 07:26] VITALS: BP 130/85
[2018-08-03 14:53] VITALS: BP 147/93
[2018-08-03 14:54] VITALS: BP 124/80; BP 130/89
[2018-08-03 19:09] LABS: APTT 30.3 Seconds (24.5-32.8); PROTIME 10.4 Seconds (9.3-11.4)
[2018-08-03 19:17] VITALS: BP 146/94
--- NOTE | 2018-08-03 20:12 | NUR ---
ASSUMED CARE OF PATIENT AT 0715, PATIENT ALERT AND ORIENTED X 4. PATIENT UP AD VICTOR HUGO IN ROOM. PATIENT HAS FISTULA IN RIGHT ARM, NOT WORKING, RIGHT ARM SWOLLEN. PATIENT HAS RIGHT CHEST DIALYSIS CATHETER, AND LEFT IJ TL IN PLACE. HEMG. 6.9, PATIENT RECEIVED 1 UNIT OF BLOOD. COMPLETED AT 1755. THIS RN COLLECTED PROTIME FROM LEFT IJ TL. PATIENT C/O PAIN WITH RIGHT ARM, TYLENOL 650 MG 2 TABLETS GIVEN, WITH COMPLETE RELIEF. PATIENT WILL BE NPO AFTER MIDNIGHT FOR EGD/DR MCGOVERN. WILL CONTINUE TO MONITOR.
--- NOTE | 2018-08-04 05:11 | NUR ---
PATIENT ALERT AND ORIENTED X3. UP ADLIB TO BATHROOM. C/O PAIN TO RIGHT UPPER ARM, MEDICATED WITH TYLENOL 650MG WITH SOME RELIEF. PATIENT HAS BEEN NPO SINCE 08/03/18 AT 2359 FOR EGD TODAY. C/O ITCHING, MEDICATED WITH BENEDRYL 25MG WITH GOOD RELIEF. DAUGHTER CALLED AND THIS NURSE UPDATED. RESTING QUIETLY AT TIME OF NOTE. THIS NURSE PRESTON BLOOD FROM LEFT IJ FOR AM LABS. WILL MONITOR.
[2018-08-04 05:19] LABS: ABSOLUTE NEUTROPHILS 6.1 thou/uL (1.4-8.2); BASOPHILS 0.4 % (0.0-2.0); EOSINOPHILS 3.4 % (0.0-3.0); HEMATOCRIT 22.9 % (37.0-47.0); HEMOGLOBIN 7.8 gm/dL (12.0-15.0); LYMPHOCYTES 11.8 % (24.0-44.0); MCH 29.5 pg (26.0-34.0); MCHC 34.1 g/dL (28.0-37.0); MCV 86.6 fL (80.0-100.0); MONOCYTES 7.9 % (1.0-8.0); PLATELET COUNT 187 thou/uL (150-400); POLYS 76.5 % (36.0-66.0); RBC 2.65 mil/uL (4.20-5.00); RDW 15.7 % (10.5-14.5); WBC 7.9 thou/uL (4.0-11.0)
[2018-08-04 05:27] LABS: ALBUMIN 1.7 g/dL (3.4-5.0); CALCIUM 7.7 mg/dL (8.5-10.1); PHOSPHORUS 3.7 mg/dL (2.5-4.9)
[2018-08-04 05:33] LABS: CREATININE 4.5 mg/dL (0.6-1.0)
[2018-08-04 08:04] VITALS: BP 139/92
--- NOTE | 2018-08-04 12:53 | NUR ---
ASSUMED CARE AT 0700, SHIFT ASSESMENT DONE, NPO SINCE LAST NIGHT. WENT FOR THE EGD THIS AM. ULCERS FOUND AND CAUTERIZED. CAME BACK AT 1030 AM. REPROTED NAUSEA, PRN MED GIVEN. ON CLEAR LIQUIDS. DENIES PAIN, WILL CONTINUE TO ASSESS AND ASSIST WITH ADLs NEEDED.
--- NOTE | 2018-08-04 15:52 | NUR ---
REPORTED PAIN AND SWELLING TO HER LEFT FISTULA SITE. DR JOHNSON NOTIFIED. ORDERS RECEIVED FOR MORPHINE 2 MG ADMINSITERED. HEAT PACK REQUESTED BY PATIENT AND APPROVED BY DR JOHNSON, PROVIDED TO THE PATIENT. WILL CONTINUE TO ASSESS AND ASSIST WITH ADLs NEEDED.
[2018-08-04 20:32] VITALS: BP 127/86
--- NOTE | 2018-08-05 04:56 | NUR ---
Pt A/OX4 with flat affect. C/o pain on RUE,LOP 7/10 medicated with Tramadol with relief report. Arm is swollen and tender to touch,heating pad on and arm elevated. VSS.Has a right chest dialysis catheter and a Left IJ triple lumen all lumens patent and flushes with ease.Denies any N/V,no Bm's so far. Continues on a continuous POX with sats in the upper 90's.Resting quietly with eyes closed,will continue to monitor pt.
[2018-08-05 06:37] LABS: HEMATOCRIT 21.5 % (37.0-47.0); HEMOGLOBIN 7.2 gm/dL (12.0-15.0); MCH 29.4 pg (26.0-34.0); MCHC 33.6 g/dL (28.0-37.0); MCV 87.6 fL (80.0-100.0); RBC 2.46 mil/uL (4.20-5.00); RDW 15.8 % (10.5-14.5); WBC 7.1 thou/uL (4.0-11.0)
[2018-08-05 09:15] VITALS: BP 130/90
--- NOTE | 2018-08-05 11:19 | HC ---
[facility] [place] [address] CONSULTATION Name: IZA SINCLAIR Room #: 223-P ADM IN M.R.#: [id number] Admission: 07/24/18 Attend Phys: Trenton Packer MD Discharge: Date of : 50 Report #: [id number] THIS REPORT FOR: //name// CC: Trenton Mitchell DATE OF SERVICE: 07/25/2018 NEPHROLOGY CONSULTATION REASON FOR CONSULTATION: End-stage renal disease. HISTORY OF PRESENT ILLNESS: The patient is well known to us with hypertension, on dialysis for at least last [address] [facility]. She has had black tarry stools for several days. Hemoglobin fell from 10.8-6.1 and 5.8. She got a blood transfusion. She has had some nausea and vomiting as well over the last several days. PAST MEDICAL HISTORY: Hypertension, end-stage renal disease, history of previous gastric ulcer, previous appendectomy and partial hysterectomy. HOME MEDICATIONS: Listed as Shea-Attila, lisinopril 20 mg daily, Toprol-XL 50 mg daily, amlodipine 5 mg daily, aspirin 81 mg daily. SOCIAL HISTORY: Former smoker, but she says she quit. REVIEW OF SYSTEMS: GENERAL: Feeling poorly for the last few days. EYES: Vision is okay. ENT: Hearing okay, swallows okay. No mouth sores or ulcers. ENDOCRINE: No diabetes or thyroid disease. RESPIRATORY: No shortness of breath, pleuritic pain, wheezing, asthma. CARDIAC: No chest pain, angina, arrhythmias or palpitations. GASTROINTESTINAL: Nausea, vomiting and dark tarry stools. GENITOURINARY: No dysuria. NEUROLOGIC: No seizure, syncope, stroke or symptoms of neuropathy. MUSCULOSKELETAL: No arthritis. PHYSICAL EXAMINATION: VITAL SIGNS: Reasonably well-appearing woman in no acute distress. SKIN: Unremarkable. SKELETAL: Well developed, well nourished. HEENT: Extraocular movements are full. Vision intact. No scleral icterus. Mucous membranes are dry. NECK: Veins are flat. CHEST: Clear. [facility] [address] [place] [address] CONSULTATION Name: IZA SINCLAIR CHRIS Room #: 223-P [facility] IN M.R.#: [id number] Admission: 07/24/18 Attend Phys: Trenton Packer MD Discharge: Date of : 50 Report #: [id number] HEART: Regular. ABDOMEN: Soft, nontender. EXTREMITIES: Right arm fistula noted. No peripheral edema. NEUROLOGIC: Grossly intact. LABORATORY DATA: Hemoglobin is 5.8 prior to transfusion, platelets 218. Sodium 141, potassium 3.8, chloride 107, bicarbonate 24, BUN 66, creatinine 5.2. ASSESSMENT AND PLAN: 1. Anemia. She appears to be having a gastrointestinal bleed with black tarry stools, likely upper gastrointestinal in nature. Today is her dialysis day, we will dialyze her without heparin to somewhat of an abbreviated treatment, her numbers really do not look too bad. 2. End-stage renal disease requiring dialysis. 3. Longstanding hypertension. 4. History of gastric ulcer. <ELECTRONICALLY SIGNED> By: Anuel Caba MD 08/05/18 1119 1108 1126 nAuel Caba MD /nt
--- NOTE | 2018-08-05 15:55 | NUR ---
ASSUMED CARE OF PATIENT AT 0715, PATIENT ALERT AND ORIENTED X 4. PATIENT UP AD VICTOR HUGO IN HER ROOM. PATIENT DENIES PAIN TO RIGHT ARM THIS AM, STILL SWOLLEN AND PAINFUL TO TOUCH OR MOVE, PATIENT REFUSED PAIN MEDICATION THIS AM. PATIENT HAS LEFT CHEST CENTRAL LINE TL, AND RIGHT CHEST DIALYSIS CATHETER IN PLACE. PATIENT WILL HAVE DIALYSIS THIS AFTERNOON. UPDATE GIVEN TO DAUGHTER/GORGE. MAKSIM CONTINUES ON CLEAR LIQUID DIET. NO C/O NAUSEA. HEMG. TODAY 7.1. WILL CONTINUE TO MONITOR.
[2018-08-05 19:43] VITALS: BP 113/81
--- NOTE | 2018-08-06 05:39 | NUR ---
PATIENT ALERT AND ORIENTED X4. HAS A R TESSIO FOR DIALYSIS. LTL SUB, PATENT FOR DIALSIS. C/O PAIN, MED GIVEN. MAKES LITTLE URINE. SLEPT MOST OF NIGHT.
[2018-08-06 07:16] LABS: HEMATOCRIT 22.1 % (37.0-47.0); HEMOGLOBIN 7.4 gm/dL (12.0-15.0); MCH 28.9 pg (26.0-34.0); MCHC 33.2 g/dL (28.0-37.0); MCV 86.9 fL (80.0-100.0); RBC 2.55 mil/uL (4.20-5.00); RDW 15.8 % (10.5-14.5); WBC 7.1 thou/uL (4.0-11.0)
--- NOTE | 2018-08-06 16:33 | NUR ---
ASSUMED PT CARE AT 0700H. PT HAS NO S/S OF DISTRESS. PT STATES PAIN AT R. ARM. PT HAD A FISTULA ON THE ARM THAT'S SENSITIVE TO TOUCH. PT TOLERATES MEDS. PT ABLE TO DO SELF CARE: CLEAN SELF, ORAL CARE AND CHANGE GOWN. PT HAD LINEN CHANGED. PT L TRIPLE LUMEN IJ FLUSHES AND DRAWS BLOOD. PT HAS A R CHEST TESSIO THAT'S C/D/I. PT DTR CONCERN FOR HGB 7.4. AND NEED TO TALK TO RENAL PHYSICIAN. PHYSICIAN GIVEN CALL NUMBER TO CALL. PT HAD NO BM DUE HX GI BLEED, CONSULTED PHYSICIAN, ORDERS TO CONTINUE MONITORING PT LABS. PT CALL LIGHT WITHIN REACH AND PERSONAL BELONGING. PT CONTINUES TO BE MONITORED FOR SAFETY.
[2018-08-06 20:23] VITALS: BP 161/101
[2018-08-07 04:59] LABS: ALBUMIN 1.6 g/dL (3.4-5.0); CALCIUM 7.9 mg/dL (8.5-10.1); CREATININE 5.3 mg/dL (0.6-1.0); PHOSPHORUS 4.3 mg/dL (2.5-4.9); POTASSIUM 3.8 mmol/L (3.5-5.1)
[2018-08-07 05:06] LABS: HEMOGLOBIN 6.9 gm/dL (12.0-15.0); RBC 2.36 mil/uL (4.20-5.00)
[2018-08-07 05:07] LABS: HEMATOCRIT 20.3 % (37.0-47.0); MCH 29.1 pg (26.0-34.0); MCHC 33.8 g/dL (28.0-37.0); RDW 15.9 % (10.5-14.5); WBC 6.8 thou/uL (4.0-11.0)
--- NOTE | 2018-08-07 06:03 | NUR ---
Patient's hgb on AM draw was 6.9. Notified [facility] at 0556 and received a call back stating no new orders at this time, day team to address.
[2018-08-07 08:30] VITALS: BP 154/104
--- NOTE | 2018-08-07 10:56 | NUR ---
followup: diet has been advanced and tolerating well. Ate 100% of breakfast today and stated she did not receive enough food. Pt has menu to order own food options. Change nutrition status to low nutrition risk
[2018-08-07 12:21] VITALS: BP 148/54; BP 175/101
--- NOTE | 2018-08-07 13:01 | NUR ---
PATIENT CARE WAS ASSUMED AT 0715.PATIENT IS ALERT AND ORIENTED X4.PATIENT HAS NOT COMPLAIND OF PAIN AT THIS TIME.IJ IS IN PLACE AND DRAWING AND FLUSHING WELL.PATIENT IS SCHEDULED FOR DIALYSIS TODAY.PATIENT WILL GET BLOOD TODAY WITH DIALYSIS.HGB WAS 6.9.DOCTOR IS AWARE.WILL CONTINUE TO MONITOR.CALL LIGT, PHONE, AND PERSONAL BELONGINGS ARE WITHIN REACH.
--- NOTE | 2018-08-07 13:15 | NUR ---
BLOOD WAS GIVEN TO PATIENT DURING DIALYSIS BY DIALYSIS NURSE.
[2018-08-07 19:49] VITALS: BP 121/86
--- NOTE | 2018-08-08 04:14 | NUR ---
PATIENT ALERT AND ORIENTED X4. PATIENT UPAD VICTOR HUGO. HAS R AV SHUNT THAT IS CLOTTED AND UNUSED AT THIS TIME. SHE ALSO HAS A R TESSIO FOR DIALYSIS. SHE HAS A TRIPLE LUMEN LIJ. D/T PLUMBING PROBLEMS IN ROOM 223 SHE WAS MOVED TO RM 225 AROUND 2130 LAST NIGHT. SLEPT MOST OF NIGHT.
[2018-08-08 06:32] LABS: HEMOGLOBIN 8.2 gm/dL (12.0-15.0); MCH 28.9 pg (26.0-34.0); MCHC 34.4 g/dL (28.0-37.0); MCV 84.1 fL (80.0-100.0); RBC 2.85 mil/uL (4.20-5.00); RDW 16.7 % (10.5-14.5); WBC 6.9 thou/uL (4.0-11.0)
[2018-08-08 06:40] LABS: CALCIUM 8.1 mg/dL (8.5-10.1); CREATININE 3.7 mg/dL (0.6-1.0); MAGNESIUM 1.8 mg/dL (1.8-2.4)
[2018-08-08 08:00] VITALS: BP 152/102
--- NOTE | 2018-08-08 09:12 | NUR ---
ASSUMED PT CARE AT 0700. ASSESSED PT AT 0800. PT RESTING IN BED. AWAKE, ALERT/ORIENTED X4. ASSESSMENT IS CHARTED. VITAL SIGNS STABLE WITH EXCEPTION OF BLOOD PRESSURE 152/102. DENIES PAIN AT THIS TIME. DENIES BLOOD IN STOOLS. INSTRUCTED PT TO LET US KNOW IF SHE NEEDS TO HAVE BM SO WE CAN COLLECT SPECIMEN. OTHERWISE NO NEW CONCERNS OR COMPLAINTS AT THIS TIME. WILL CONTINUE WITH CURRENT CARE.
--- NOTE | 2018-08-08 14:26 | NUR ---
PT DOING WELL THIS SHIFT. ONE SMALL, HARD STOOL NOTED. PT DID NOT NOTIFY NURSING IN TIME TO COLLECT. APPEARS DARK, BUT NO MIMI BLOOD NOTED. PT HAS BEEN UP AND AROUND IN ROOM TODAY. NO OTHER CONCERNS OR COMPLAINTS AT THIS TIME.
--- NOTE | 2018-08-08 17:30 | NUR ---
PT CONTINUES TO DO WELL THIS SHIFT. NO C/O PAIN. NO N/V OR BLOODY STOOLS. PT RESTING IN BED AT THIS TIME. WILL CONTINUE TO MONITOR.
[2018-08-08 20:52] VITALS: BP 141/93
[2018-08-09 02:42] LABS: ABSOLUTE NEUTROPHILS 5.9 thou/uL (1.4-8.2); BASOPHILS 0.5 % (0.0-2.0); EOSINOPHILS 1.8 % (0.0-3.0); HEMATOCRIT 24.5 % (37.0-47.0); HEMOGLOBIN 8.2 gm/dL (12.0-15.0); LYMPHOCYTES 11.2 % (24.0-44.0); MCH 28.5 pg (26.0-34.0); MCHC 33.6 g/dL (28.0-37.0); MCV 84.9 fL (80.0-100.0); MONOCYTES 9.8 % (1.0-8.0); PLATELET COUNT 326 thou/uL (150-400); POLYS 76.7 % (36.0-66.0); RBC 2.88 mil/uL (4.20-5.00); RDW 16.8 % (10.5-14.5); WBC 7.8 thou/uL (4.0-11.0)
[2018-08-09 02:52] LABS: ALBUMIN 1.7 g/dL (3.4-5.0); CALCIUM 8.3 mg/dL (8.5-10.1); PHOSPHORUS 3.8 mg/dL (2.5-4.9); POTASSIUM 4.3 mmol/L (3.5-5.1)
[2018-08-09 02:54] LABS: CREATININE 4.7 mg/dL (0.6-1.0)
[2018-08-09 07:25] VITALS: BP 147/89
--- NOTE | 2018-08-09 07:28 | NUR ---
ASSUMED PT CARE AT 0700. PT RESTING IN BED. ALERT/ORIENTED X4, WITHDRAWN AND QUIET. DENIES PAIN, NAUSEA, VOMITTING. VITAL SIGNS STABLE. CENTRAL LINE TO LEFT JUGULAR IS CLEAN,DRY,INTACT. DIALYSIS LINE IS CLEAN,DRY,INTACT. DIALYSIS NURSE AT BEDSIDE TO BEGIN DIALYZING. ASSESSMENT IS CHARTED. OTHERWISE NO NEW CONCERNS OR ISSUES AT THIS TIME. WILL CONTINUE WITH CURRENT PLAN OF CARE.
[2018-08-09] MEDS ORDERED: PROTONIX40 M2 PO (11:29)
[2018-08-09 12:08] VITALS: BP 147/89
[2018-08-09 12:27] VITALS: BP 147/89
--- NOTE | 2018-08-09 12:56 | NUR ---
Patient to dc home today no needs from [facility]. Notified [facility] of dc and faxed orders. no further needs
--- NOTE | 2018-08-09 15:06 | NUR ---
DISCHARGED PT IN STABLE CONDITION VIA WHEELCHAIR. DIALYSIS LINE IN PLACE.
== END 2018-08-09 15:09 | disposition home or self-care (01) | DRG 252 ==
LOC: ER 11:46 → 4W 14:59 → EROBS 14:59 → 4W 15:30 → ICU 07-26 13:07 → 4W 07-28 12:20 → SICU 07-31 17:07 → ENTRNSPT 08-09 14:55 → EDTRNSPTSTS 08-09 14:59 → SICU 08-09 15:09
PROVIDERS: Emergency Medicine; Hospitalist; Internal Medicine; Internal Medicine Gastroenterology; Internal Medicine Hematology & Oncology; Internal Medicine Nephrology; Nurse Practitioner; Nurse Practitioner Family; ADMIT Hospitalist
PROC: 30233N1 Transfusion of Nonautologous Red Blood Cells into Peripheral Vein, Percutaneous Approach (ICD-10-PCS; principal; 2018-07-24)
PROC: 5A1D70Z Performance of Urinary Filtration, Intermittent, Less than 6 Hours Per Day (ICD-10-PCS; 2018-07-25)
PROC: 0DJ08ZZ Inspection of Upper Intestinal Tract, Via Natural or Artificial Opening Endoscopic (ICD-10-PCS; 2018-07-27)
PROC: 5A1D70Z Performance of Urinary Filtration, Intermittent, Less than 6 Hours Per Day (ICD-10-PCS; 2018-07-27)
PROC: 02HV33Z Insertion of Infusion Device into Superior Vena Cava, Percutaneous Approach (ICD-10-PCS; 2018-07-27)
PROC: B548ZZA Ultrasonography of Superior Vena Cava, Guidance (ICD-10-PCS; 2018-07-27)
PROC: 5A1D70Z Performance of Urinary Filtration, Intermittent, Less than 6 Hours Per Day (ICD-10-PCS; 2018-07-29)
PROC: 5A1D70Z Performance of Urinary Filtration, Intermittent, Less than 6 Hours Per Day (ICD-10-PCS; 2018-07-31)
PROC: B5181ZZ Fluoroscopy of Superior Vena Cava using Low Osmolar Contrast (ICD-10-PCS; 2018-08-01)
PROC: 05CB3ZZ Extirpation of Matter from Right Basilic Vein, Percutaneous Approach (ICD-10-PCS; 2018-08-01)
PROC: 03C73ZZ Extirpation of Matter from Right Brachial Artery, Percutaneous Approach (ICD-10-PCS; 2018-08-01)
PROC: 05753ZZ Dilation of Right Subclavian Vein, Percutaneous Approach (ICD-10-PCS; 2018-08-01)
PROC: 057B3ZZ Dilation of Right Basilic Vein, Percutaneous Approach (ICD-10-PCS; 2018-08-01)
PROC: 0JH63XZ Insertion of Tunneled Vascular Access Device into Chest Subcutaneous Tissue and Fascia, Percutaneous Approach (ICD-10-PCS; 2018-08-02)
PROC: 02H633Z Insertion of Infusion Device into Right Atrium, Percutaneous Approach (ICD-10-PCS; 2018-08-02)
PROC: 5A1D70Z Performance of Urinary Filtration, Intermittent, Less than 6 Hours Per Day (ICD-10-PCS; 2018-08-02)
PROC: B2141ZZ Fluoroscopy of Right Heart using Low Osmolar Contrast (ICD-10-PCS; 2018-08-02)
PROC: 3E0G8GC Introduction of Other Therapeutic Substance into Upper GI, Via Natural or Artificial Opening Endoscopic (ICD-10-PCS; 2018-08-04)
PROC: 0D568ZZ Destruction of Stomach, Via Natural or Artificial Opening Endoscopic (ICD-10-PCS; 2018-08-04)
PROC: 5A1D70Z Performance of Urinary Filtration, Intermittent, Less than 6 Hours Per Day (ICD-10-PCS; 2018-08-05)
PROC: 5A1D70Z Performance of Urinary Filtration, Intermittent, Less than 6 Hours Per Day (ICD-10-PCS; 2018-08-07)
PROC: 5A1D70Z Performance of Urinary Filtration, Intermittent, Less than 6 Hours Per Day (ICD-10-PCS; 2018-08-09)
DX: T82.898A Other specified complication of vascular prosthetic devices, implants and grafts, initial encounter (principal); N18.6 End stage renal disease; J96.01 Acute respiratory failure with hypoxia; J96.02 Acute respiratory failure with hypercapnia; K25.4 Chronic or unspecified gastric ulcer with hemorrhage; D62 Acute posthemorrhagic anemia; T80.89XA Other complications following infusion, transfusion and therapeutic injection, initial encounter; A08.4 Viral intestinal infection, unspecified; E89.0 Postprocedural hypothyroidism; K52.9 Noninfective gastroenteritis and colitis, unspecified; R91.1 Solitary pulmonary nodule; E87.5 Hyperkalemia; K22.2 Esophageal obstruction; K44.9 Diaphragmatic hernia without obstruction or gangrene; D69.6 Thrombocytopenia, unspecified; Z90.49 Acquired absence of other specified parts of digestive tract; Z87.891 Personal history of nicotine dependence; Z90.710 Acquired absence of both cervix and uterus; Z86.010 Personal history of colon polyps; Z79.82 Long term (current) use of aspirin; Z79.899 Other long term (current) drug therapy; Z28.21 Immunization not carried out because of patient refusal; Y83.8 Other surgical procedures as the cause of abnormal reaction of the patient, or of later complication, without mention of misadventure at the time of the procedure; Y92.89 Other specified places as the place of occurrence of the external cause
CPT/HCPCS: 10045; 10047; 10078; 15002; 32100; 62110; 62900; 70005

== ENCOUNTER 2018-08-12 09:33 | Emergency (ER) | payer OTHER ==
[~2018-08-12] VITALS: Ht 165.1 cm; Wt 63.5 kg
[~2018-08-12 09:33] MED LIST changes: +PROTONIX40 M2 PO; +RENA-VITE RX T1 EACH PO
[2018-08-12 10:15] LABS: ABSOLUTE NEUTROPHILS 6.2 thou/uL (1.4-8.2); BASOPHILS 0.9 % (0.0-2.0); EOSINOPHILS 2.3 % (0.0-3.0); HEMATOCRIT 26.1 % (37.0-47.0); HEMOGLOBIN 8.7 gm/dL (12.0-15.0); LYMPHOCYTES 12.6 % (24.0-44.0); MCH 28.6 pg (26.0-34.0); MCHC 33.2 g/dL (28.0-37.0); MCV 86.2 fL (80.0-100.0); MONOCYTES 8.7 % (1.0-8.0); PLATELET COUNT 410 thou/uL (150-400); POLYS 75.5 % (36.0-66.0); RBC 3.03 mil/uL (4.20-5.00); RDW 17.4 % (10.5-14.5); WBC 8.2 thou/uL (4.0-11.0)
[2018-08-12 10:48] LABS: ANION GAP 10 mmol/L (7-16); BUN 44 mg/dL (7-18); CALCIUM 8.7 mg/dL (8.5-10.1); CHLORIDE 104 mmol/L (98-107); CO2 26 mmol/L (21-32); GLUCOSE 91 mg/dL (74-106); POTASSIUM 4.4 mmol/L (3.5-5.1); SODIUM 140 mmol/L (136-145)
[2018-08-12 10:56] LABS: ALBUMIN 2.1 g/dL (3.4-5.0); SGOT 14 U/L (15-37); SGPT 12 U/L (30-65); TOTAL BILIRUBIN 0.2 mg/dL (<0.1-1.0); TOTAL PROTEIN 6.3 g/dL (6.4-8.2); TROPONIN-I <0.06 ng/mL (<0.06)
[2018-08-12 12:13] VITALS: BP 147/85
--- NOTE | 2018-08-12 13:23 | EKG ---
[place] [address] [place] [address] ELECTROCARDIOGRAM REPORT Name: IZA SINCLAIR Room #: DEP Dana#: [id number] Admission: 08/12/18 Attend Phys: Discharge: 08/12/18 Date of : 50 Report #: [id number] THIS REPORT FOR: //name// [facility] ED Test Date: 2018-08-12 Test Time: 10:15:43 Pat Name: IZA SINCLAIR Department: Room: Gender: F Manager Adobe: GERALD : 1950 Requested By: Jose Carlos Ayoub Order Number: [id number] MD: Collin Leiva Measurements Intervals [place] Rate: 71 P: 38 WV: 171 QRS: -16 QRSD: 110 T: 50 QT: 410 QTc: 446 Interpretive Statements Sinus rhythm Left ventricular hypertrophy No previous ECG available for comparison Electronically Signed On 08-12-2018 13:23:20 METAL GRINDER by Collin Leiva [email or web address] <ELECTRONICALLY SIGNED> By: Collin Leiva MD 08/12/18 1323 1015 1015 MD ERIS Patel
== END 2018-08-12 12:14 | disposition home or self-care (01) ==
LOC: ER 09:33
PROVIDERS: Physician Assistant
DX: K92.2 Gastrointestinal hemorrhage, unspecified (principal); K64.4 Residual hemorrhoidal skin tags; Z86.2 Personal history of diseases of the blood and blood-forming organs and certain disorders involving the immune mechanism; I12.0 Hypertensive chronic kidney disease with stage 5 chronic kidney disease or end stage renal disease; N18.6 End stage renal disease; Z87.891 Personal history of nicotine dependence; Z90.49 Acquired absence of other specified parts of digestive tract; Z90.711 Acquired absence of uterus with remaining cervical stump

== ENCOUNTER → 2018-10-24 | Outpatient (CLI) | payer OTHER ==
[~2018-10-24] VITALS: Ht 167.6 cm; Wt 65.8 kg
[~2018-10-24] MED LIST changes: +LOPRESSOR50; +NORVASC10 MG PO
[2018-10-24 07:52] LABS: CALCIUM 8.9 mg/dL (8.5-10.1); CREATININE 4.3 mg/dL (0.6-1.0); POTASSIUM 3.8 mmol/L (3.5-5.1)
--- NOTE | 2018-10-28 17:55 | P ---
[facility] [place] [address] [place] [address] PROCEDURE REPORT Name: IZA SINCLAIR Room #: REG [facility].#: [id number] Admission: 10/24/18 ������������������ Attend Phys: Moshe Lopez MD Discharge: ������������������ Date of : 50 Report #: [id number] THIS REPORT FOR: //name// CC: Torin Mitchell DO Moshe Chavira MD BRIEF HISTORY: The patient is a 67-year-old woman who had a marked GI bleeding this past July, requiring 7 units of blood. With difficulty, she was found to have a prepyloric antral ulcer that was injected with epinephrine, cauterized and clipped. She presents today for followup endoscopy to ensure healing of the ulcer. She has been on twice daily pantoprazole. PREOPERATIVE DIAGNOSIS: Upper gastrointestinal bleeding secondary to gastric ulcer. POSTOPERATIVE DIAGNOSES: 1. A 3 cm sliding type hiatus hernia. 2. Moderate diffuse gastritis. 3. 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 MEDICATIONS: Deep sedation with propofol per Anesthesia. SPECIMEN: None. ESTIMATED BLOOD LOSS: None. PROCEDURE: EGD with biopsy. FINDINGS: Prior to propofol sedation, the procedure of upper endoscopy was reviewed with the patient as well as potential risks and its complications. She indicates she understands and desires to proceed. DESCRIPTION OF PROCEDURE: With the patient in left lateral decubitus position, digital examination was completed, which revealed no abnormalities. With the left lateral decubitus position, the Olympus video endoscope was inserted in the cervical esophagus under direct vision without difficulty. Examination of this organ through its entire length revealed normal esophageal mucosa down the squamocolumnar junction. The squamocolumnar junction was inspected and noted to be unremarkable. There is no evidence of ulcers or erosions. The scope was advanced into a 3 cm sliding type hiatus hernia. Mucosa in the hernia was unremarkable. There is no evidence of bleeding. The scope was advanced into the stomach, which was examined on end view as well as retroflexed views. There was no blood within the stomach. Examination of the entire stomach revealed a diffuse gastritis with erythema throughout the entire stomach with loss of vascularity. This has been previously noted on biopsies done last March, were [facility] [address] [place] [address] PROCEDURE REPORT Name: IZA SINCLAIR Room #: REG Yusra Cortez#: [id number] Admission: 10/24/18 ������������������ Attend Phys: Moshe Lopez MD Discharge: ������������������ Date of : 50 Report #: [id number] negative for H. pylori as well as intestinal metaplasia. The pathologist read the report as reactive gastropathy. There was mention of watermelon stomach in a previous endoscopy report. I do not see definite evidence of watermelon stomach. Examination of distal stomach again revealed a diffuse gastritis. The prepyloric antrum was carefully inspected, and there was no evidence of ulcer. The previously noted ulcer has healed. In addition, along the inferior posterior aspect of the antrum, there is intermittently seen a "fold." This has been noted in the past and previous biopsies were nondiagnostic. 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 It is thin, does not appear to be thickened today. The overlying mucosa is the same as the rest of the stomach. It has a smooth and benign appearance. It involves about 50% of the circumference of the antrum. The pylorus was normal. Duodenal bulb was normal. Postbulbar sweep was inspected and noted to be unremarkable. At that point, the scope was slowly withdrawn and careful circumferential views confirmed the above findings. The patient tolerated the procedure well. CONDITION OF THE PATIENT UPON DISCHARGE: Following procedure, the patient drowsy. She will be discharged home when fully ambulatory. INSTRUCTIONS TO THE PATIENT AND FAMILY AT THE TIME OF DISCHARGE: The patient's ulcer is completely healed. She has not had any further GI bleeding. She was negative for H. pylori in the past. She had been taking 1 baby aspirin daily and denied the use of nonsteroidals at the time of her ulcer disease. She is currently not on nonsteroidals. Given the fact she had marked GI bleeding, I think it would be reasonable to continue the PPI prophylaxis. We will have her reduce her pantoprazole from b.i.d. to 40 mg daily. We will have her return to see me in followup in the office in about 6 months to monitor progress and make further recommendations as needed. ��������������������������������������������� <ELECTRONICALLY SIGNED> ���������������������������������������� By: Moshe Lopez MD ��������������������������������������������� 10/28/18 1755 0819 1717 Moshe Lopez MD /nt
== END | disposition home or self-care (01) ==
LOC: GI 06:24
PROVIDERS: Specialist
DX: K44.9 Diaphragmatic hernia without obstruction or gangrene (principal); K29.70 Gastritis, unspecified, without bleeding; Z79.899 Other long term (current) drug therapy; K25.9 Gastric ulcer, unspecified as acute or chronic, without hemorrhage or perforation; Z87.891 Personal history of nicotine dependence; Z98.890 Other specified postprocedural states; Z90.710 Acquired absence of both cervix and uterus; I12.0 Hypertensive chronic kidney disease with stage 5 chronic kidney disease or end stage renal disease; N18.6 End stage renal disease; K21.9 Gastro-esophageal reflux disease without esophagitis; D64.9 Anemia, unspecified; N25.81 Secondary hyperparathyroidism of renal origin
CPT/HCPCS: 62110; 62900

== ENCOUNTER 2018-12-12 09:58 | Inpatient (IN) | payer OTHER ==
[~2018-12-12] VITALS: Ht 165.1 cm; Wt 61.5 kg
--- NOTE | ~2018-12-12 | HC ---
[facility] [place] [address] [place] [address] CONSULTATION Name: IZA SINCLAIR Room #: 209-P ADM IN M.R.#: [id number] Admission: 12/12/18 ������������������ Attend Phys: Donald Rico Discharge: ������������������ Date of : 50 Report #: [id number] THIS REPORT FOR: //name// CC: Torin Tapia REASON FOR THE CONSULTATION: End-stage renal disease. REASON FOR THE PRESENTATION: Abdominal pain. HISTORY OF PRESENT ILLNESS: A 68-year-old with past medical history of hypertension; end-stage renal disease; maintained on hemodialysis every Sunday, Sunday and Sunday. She presented reporting abdominal pain. She is known to have recurrent GI bleeding and was in the hospital for an extended period of time for her recurrent GI bleeding and required numerous procedure. She ended up with clotting of her AV fistula. She is currently utilizing an IJ catheter for her dialysis. She denies any fever or chills. She has no cough or shortness of breath. CT scan showed signs of dilated bowel loops with obstruction. Surgical consultation was obtained. The patient went to surgery on December 12 for lysis of adhesions, small bowel resection and ileocecal anastomosis. Consult was placed for me to manage her end-stage renal disease issues. PAST MEDICAL HISTORY: 1. End-stage renal disease, maintained on hemodialysis. 2. Hypertension. 3. Hysterectomy. 4. Appendectomy. 5. Right AV fistula clotted. 6. IJ catheter. 7. Left new AV fistula. 8. Hyperparathyroidism. 9. History of GI bleed with gastric ulcers. 10. TB in the past. MEDICATIONS: 1. Metoprolol. 2. Amlodipine. 3. Lisinopril. 4. Pantoprazole. ALLERGIES: None. SOCIAL HISTORY: No drug or alcohol abuse. REVIEW OF SYSTEMS: GENERAL: No fever or chills. [facility] [address] [place] [address] CONSULTATION Name: IZA SINCLAIR Room #: 209-P [facility] IN ..#: [id number] Admission: 12/12/18 ������������������ Attend Phys: Donald Rico Discharge: ������������������ Date of : 50 Report #: [id number] PULMONARY: No cough or hemoptysis. CARDIOVASCULAR: No chest pain or palpitation. GASTROINTESTINAL: As per the history of present illness. MUSCULOSKELETAL: No back pain. No morning stiffness. SKIN: No rash or ulcerations. NEUROLOGICAL: No numbness. No weakness. FAMILY HISTORY: Strongly significant for hypertension. PHYSICAL EXAMINATION: GENERAL: The patient was alert and oriented, in no apparent distress. VITAL SIGNS: Blood pressure was 136/54 and temperature was 37.7. HEAD AND NECK: No jugular venous distention. NG tube in place. CHEST: No crackles. CARDIOVASCULAR: No rub. ABDOMEN: Soft, surgical scars. LOWER EXTREMITIES: No edema. UPPER EXTREMITIES: Old clotted AV fistula. New left AV fistula. LABORATORY DATA: Laboratory values reviewed. Sodium is 137, potassium is 5.5, BUN is 37 and creatinine is 6.9. ASSESSMENT, IMPRESSION AND PLAN: 1. End-stage renal disease. 2. Hyperkalemia. 3. Bowel obstruction post-ileocecal anastomosis and bowel resection. 4. The patient was appropriately managed yesterday with emergent hemodialysis. It is not unusual for an end-stage renal patient to go into episodes of hyperkalemia after being in an n.p.o. status. Potassium is down to 5.5. Hopefully, she could start her oral intake today and that will help with the potassium issues. No plan to dialyze today. I will recheck her potassium tomorrow. 5. Advance diet as tolerated. 6. Routine surgical care. ��������������������������������������������� ���������������������������������������� By: ��������������������������������������������� [id number] Arlette Nascimento MD /nt
--- NOTE | ~2018-12-12 | O ---
[facility] [place] [address] OPERATIVE REPORT Name: IZA SINCLAIR Room #: 209-P ADM IN M.R.#: [id number] Admission: 12/12/18 ������������������ Attend Phys: Donald Rico Discharge: ������������������ Date of : 50 Report #: [id number] THIS REPORT FOR: //name// CC: Torin Tapia DATE OF SERVICE: 12/12/2018 PREOPERATIVE DIAGNOSES: Internal hernia, likely ischemic bowel. POSTOPERATIVE DIAGNOSES: Internal hernia and ischemic bowel. OPERATIVE PROCEDURE: 1. Exploratory laparotomy. 2. Lysis of adhesions. 3. Small bowel resection and ileo ascending anastomosis. SURGEON: Kameron Denis MD GEOTECHNICAL ENGINEER: Chrystal. INDICATIONS FOR PROCEDURE: The patient is a 68-year-old female who presented with acute onset of abdominal pain that she has been having since morning. Clinical exam and CT scan were suggestive of internal hernia, possibly ischemic bowel. The patient was advised exploratory laparotomy. DESCRIPTION OF PROCEDURE: After explaining to the patient in detail an informed consent was obtained. The patient was identified in the preoperative holding area. The patient was transferred to the operating room and was placed in supine position. Subsequent sterile compressive devices were placed for DVT prophylaxis. Preoperative antibiotics were given. After induction of anesthesia, the abdomen was prepped and draped in a sterile fashion. Through a midline incision measuring approximately about 10 cm peritoneal cavity was entered. On entering the peritoneal cavity, there was approximately about 500-750 mL of hemoserous fluid that was suctioned out. On inspection of the distal small bowel, approximately about 2 feet of small bowel appeared to be ischemic up to the ileocecal junction secondary to an internal hernia due to a band. The band was lysed with hot cautery. The small bowel was then transected just proximal to the affected area using a PAUL blue load stapler. As I could not anastomose the terminal ileum as there was very little small bowel left, I decided to do an ileo ascending anastomosis and therefore I transected the cecum using another PAUL blue load stapler. The cecum and the proximal ascending was floppy and therefore I did not have to do much of mobilization. I then did a [id number] anastomosis between the small bowel and the ascending colon using the blue load stapler. The common enterotomy was closed with another blue load stapler. The staple line was then reinforced using continuous 2-0 silk sutures. [facility] [address] [place] [address] OPERATIVE REPORT Name: IZA SINCLAIR Room #: 209-P [facility] IN M.R.#: [id number] Admission: 12/12/18 ������������������ Attend Phys: Donald Rico Discharge: ������������������ Date of : 50 Report #: [id number] The mesenteric defect was closed with 2-0 silk sutures continuous. Thorough saline irrigation of the abdomen was given. Absolute hemostasis was ensured. The abdomen was then closed with #1 PDS for the fascia, skin was closed with yumiko. Approximately about 10 mL of lidocaine and Marcaine mix was injected into all the incisions. The patient was woken up from anesthesia and was transferred to the recovery room in stable condition. ESTIMATED BLOOD LOSS: 25 mL. CONDITION: The patient is stable. FLUIDS: Given per Anesthesia notes. SPECIMEN SENT: Resected small bowel. COMPLICATIONS: None. ANESTHESIA: General anesthesia. ��������������������������������������������� ���������������������������������������� By: ��������������������������������������������� 1948 04 Kameron Denis MD /nt
[2018-12-12 09:59] VITALS: BP 171/116
--- NOTE | 2018-12-12 10:49 | NUR ---
LAB WAS CALLED AFTER X3 NURSES ATTEMPTED. PT HAS LEFT ARM FISTULA
[2018-12-12 12:06] LABS: HEMATOCRIT 51.5 % (37.0-47.0); HEMOGLOBIN 16.2 gm/dL (12.0-15.0); MCHC 31.5 g/dL (28.0-37.0); MCV 76.1 fL (80.0-100.0); PLATELET COUNT 156 thou/uL (150-400); RBC 6.77 mil/uL (4.20-5.00); RDW 22.1 % (10.5-14.5); WBC 8.8 thou/uL (4.0-11.0)
[2018-12-12 12:20] LABS: CALCIUM 9.4 mg/dL (8.5-10.1); CREATININE 9.5 mg/dL (0.6-1.0); POTASSIUM 4.5 mmol/L (3.5-5.1)
[2018-12-12 12:25] LABS: ALBUMIN 3.9 g/dL (3.4-5.0); TOTAL BILIRUBIN 0.2 mg/dL (<0.1-1.0); TOTAL PROTEIN 7.6 g/dL (6.4-8.2)
[2018-12-12 13:27] LABS: ANISOCYTOSIS 2+
[2018-12-12 14:21] LABS: APTT 29.6 Seconds (24.5-32.8); INR 1.1; PROTIME 11.4 Seconds (9.3-11.4)
[2018-12-12 15:39] VITALS: BP 172/95
[2018-12-12 16:01] VITALS: BP 156/101
[2018-12-12 16:25] VITALS: BP 140/87
--- NOTE | 2018-12-12 16:52 | NUR ---
AMDITTED FROM ED VIA STRECHER. ALERT AND ORIENTED X4. C/O SEVERE ABDOMINAL PAIN, DR RIZO NOTIFIED NO FURTHER ORDERS RECIEVED AND SPOKE WITH DR JESSICA Dean. WILL COME AND SEE THE PATIENT. ST AND BP 142/78 AND AFEBRILE. POC INITIATED AND ADMISION COMPLETED.
[2018-12-12 20:41] VITALS: BP 143/91
[2018-12-13 03:37] VITALS: BP 157/87
[2018-12-13 07:40] VITALS: BP 137/83
--- NOTE | 2018-12-13 08:11 | NUR ---
ASSESSMENTS CHARTED. PATIENT ARRIVED FROM SURGERY AROUND 2230 C/O PAIN AND THIRST. PATIENT HAD MAXED PAIN MEDS IN PROCEDURE AND PATIENT NPO WITH NG TUBE PLACED IN PROCEDURE. CALLED [facility] CONCERNING CURRENT PO MEDS NEEDING TO BE CHANGED TO IV. CALLED FOR PAIN MEDS ALSO. PATIENT HAS NEW FISTULA IN LEFT ARM THAT WAS DONE AT [facility] THIS WEEK.
[2018-12-13 09:07] LABS: ABSOLUTE NEUTROPHILS 8.4 thou/uL (1.4-8.2); BASOPHILS 0.1 % (0.0-2.0); HEMATOCRIT 36.2 % (37.0-47.0); LYMPHOCYTES 8.2 % (24.0-44.0); MCH 23.5 pg (26.0-34.0); MCHC 31.4 g/dL (28.0-37.0); MCV 74.9 fL (80.0-100.0); MONOCYTES 7.7 % (1.0-8.0); PLATELET COUNT 144 thou/uL (150-400); RBC 4.83 mil/uL (4.20-5.00)
[2018-12-13 09:09] LABS: HEMOGLOBIN 11.4 gm/dL (12.0-15.0)
[2018-12-13 09:14] LABS: CALCIUM 8.4 mg/dL (8.5-10.1)
[2018-12-13 09:18] LABS: POTASSIUM 7.2 mmol/L (3.5-5.1)
[2018-12-13 10:44] LABS: CALCIUM 8.4 mg/dL (8.5-10.1); CREATININE 10.9 mg/dL (0.6-1.0)
[2018-12-13 10:50] LABS: POTASSIUM 6.5 mmol/L (3.5-5.1)
[2018-12-13 11:04] LABS: ANISOCYTOSIS 2+
[2018-12-13 11:05] LABS: HYPOCHROMASIA 1+; OVALOCYTES FEW; TEARDROPS RARE
[2018-12-13 11:50] VITALS: BP 125/78
[2018-12-13 15:45] VITALS: BP 146/96
--- NOTE | 2018-12-13 16:04 | NUR ---
ASSESSMENT: CM REVIEWED CHART AND MET WITH PATIENT AT THE BEDSIDE. PT IS ALERT AND ORIENTED X4. PT WAS ADMITTED WITH ABDOMINAL PAIN AND HAD EXPLOATROY LAP AND BOWEL RESECTION. PT REPORTS THAT SHE LIVES IN AN APT ALONE. PT REPORTS SHE STILL WORS AND IS VERY INDEPENDENT. PT REPORTS SHE HAS AN ELEVATOR TO GET TO HER APT. PT REPORTS AMBULATING INDEPENDENTLY. PT REPORTS SHE HAS A GRAB BAR IN THE SHOWER. PT STATES SHE IS INDEPENDENT WITH ADLS. PT GETS DIALYSIS MWF AT [facility] [phone], CM CONTACTED THEM TO NOTIFY OF PATIENTS ADMISSION AND THEY REQUEST WHEN PATIENT DISCHARGES WE FAX PAPERWORK TO THEIR FAX:[phone]. CM DISCUSSED ROLE. PT STATED AT THIS TIME SHE IS NOT INTERESTED IN HH OR GOING ANYWHERE STATING SHE NEEDS TO GET BACK TO WORK. PT STATES SHE WILL BE HERE A FEW DAYS AND SHE WILL SEE HOW SHE RECOVERS BUT IS NOT INTERESTED IN HH AT THIS TIME. PT REPORTS FAMILY IS SUPPORTIVE. NO PLANS FOR WEEKEND DISCHARGE. CM WILL CONTINUE TO FOLLOW TO ASSIST NEEDED.
--- NOTE | 2018-12-13 16:43 | NUR ---
ASSESSMENT CHARTED - MEDS PER MAR - PO MEDS HELD PER DR JEONG - NG TUBE INSITU WITH NO DRAININAGE NOTED. PT WITH ELEAVTED K+ THIS AM - DR JEONG NOTIFIED OF K+ AND THAT PATIENT IS DIALYSIS PATIENT AND HAS NO NEPHROLOGY CONSULT, - STAT CALL MADE TO NEPHROLOGY OFFICE AND PATIENT HAD DIALYSIS THIS SHIFT - 1 LITER REMOVED PER DIALSIS NURSE - PT WITH CO'S OF PAIN GIVEN MORPHINE OD DILAUDID WITH GOOD RELIEF - PATIENT SLEEPING POST MEDICATION. SURGEON IN TO SEE PATIENT - PT MAY HAVE SIPS OF WATER AND BE UP TO THE CHAIR IS SHE WISHES. NO CO'S AT THE PRESENT TIME.
[2018-12-13 20:05] VITALS: BP 194/96
[2018-12-14] VITALS: BP 136/54
--- NOTE | 2018-12-14 05:30 | NUR ---
[facility], BEDSIDE SHIFT REPORT TAKEN. NO SIGN OF DISTRESS NOTED IN PT. PT IS STABLE WITH NG TUBE IN PLACE. PT IS ALERT AND ORIENTED WITH FAMILY AT BEDSIDE. PT IS RECEIVING HYDROMORPHONE FOR PAIN. SCHEUDLED MEDS ADMINISTERED TO PT. ROBLEDO IS IN PLACE, PAIN MEDS ADMINISTERED NEEDED. DENIES ANY FURTHER NEEDS AT THIS TIME.
[2018-12-14 06:01] LABS: HEMOGLOBIN 10.9 gm/dL (12.0-15.0); MCH 23.3 pg (26.0-34.0); MCHC 31.3 g/dL (28.0-37.0); MCV 74.4 fL (80.0-100.0); RBC 4.7 mil/uL (4.20-5.00); RDW 21.3 % (10.5-14.5)
[2018-12-14 06:13] LABS: ALBUMIN 2.6 g/dL (3.4-5.0); CALCIUM 8.1 mg/dL (8.5-10.1); PHOSPHORUS 6.9 mg/dL (2.5-4.9)
[2018-12-14 06:17] LABS: CREATININE 6.9 mg/dL (0.6-1.0); POTASSIUM 5.5 mmol/L (3.5-5.1)
[2018-12-14 07:50] VITALS: BP 173/98
[2018-12-14 11:55] VITALS: BP 183/110
[2018-12-14 16:00] VITALS: BP 177/105
--- NOTE | 2018-12-14 16:48 | NUR ---
ASSESSMENT CHARTED - MEDS PER MAR - PT HAD NG TUBE REMOVED - PO MEDS GIVEN - BP REMAINS HIGH - DR AWARE - BP MEDS STARTED TODAY WILL CONTINUE TO MONITOR. ROBLEDO CATH REMOVED - PATIENT DIALYSIS PATIENT HAS NOT VOICED SINCE REMOVAL - PT UP TO THE CHAIR 0 CESARIO WELL GIVEN PAIN MEDICATION WITH GOOD RELIEF ON PAIN. CESARIO SMALL AMOUNT OF CLEAR LIQUIDS. IV FLUIDS CONT ORDERED. NO CO'S AT THE PRESENT TIME.
[2018-12-14 20:00] VITALS: BP 131/71
[2018-12-15] VITALS (7 sets, daily range): BP systolic 149–220; BP diastolic 62–110
[2018-12-15 06:02] LABS: ALBUMIN 2.6 g/dL (3.4-5.0); CALCIUM 7.9 mg/dL (8.5-10.1); POTASSIUM 5.2 mmol/L (3.5-5.1)
[2018-12-15 06:03] LABS: CREATININE 8.6 mg/dL (0.6-1.0)
--- NOTE | 2018-12-15 07:50 | NUR ---
ASSUMED PT CARE 1900. PT IS SLEEPING ON THE CHAIR. PT IS STABLE WITH NO SIGN OF DISTRESS NOTED IN PT. PT IS EASILY AROUSABLE. SCHEDULED MEDS ADMINISTERED TO PT. PT TOLERATED PO INTAKE WITH NO NAUSEA. DENIES ANY NEEDS AT THIS TIME. PT IS TRANSFERRED FROM CHAIR TO BED. OXYGEN SATURATION LOW WITH AM VITALS. PT IS PLACED ON NASAL CANNULA. PT IS STABLE, DENIES ANY FUTHER NEEDS AT THIS TIME
--- NOTE | 2018-12-15 12:30 | NUR ---
ASSUMED CARE OF PT AT APPROX 0700. PT IS ALERT AND ORIENTED X4, MONITORED ON TELE AND ABLE TO MAINTAIN 02 SAT >90 ON NC. ASSESSMENT CHARTED. PT DENIES PAIN CURRENTLY. BP IS ELEVATED PROVIDER AWARE AND ORDERED PRN BP MEDICATION THAT WAS ADINISTERED WITH PARTIAL RESOLUTION. UPDATED PT ON POC. PT DENIES ANY CONCERNS AT THIS TIME WILL CONTINUE TO MONITOR PT AND BP.
--- NOTE | 2018-12-16 05:13 | NUR ---
ASSUMED PT CARE AT 1900 WITH NO SIGN OF DISTRESS NOTED IN PT. PT IS SLEEPING ON THE CHAIR. PT IS STABLE. SCHEDULED MEDS ADMINISTERED TO PT. ASSESSMENT CHARTED. PAIN MED ADMINISTERED NEEDED. DENIES ANY FURTHER NEEDS AT THIS TIME.
[2018-12-16 05:25] LABS: ALBUMIN 2.6 g/dL (3.4-5.0); CALCIUM 8.2 mg/dL (8.5-10.1); PHOSPHORUS 7.5 mg/dL (2.5-4.9)
[2018-12-16 05:28] LABS: CREATININE 9.8 mg/dL (0.6-1.0)
[2018-12-16 05:42] VITALS: BP 165/88
[2018-12-16 08:15] VITALS: BP 145/102
[2018-12-16 12:35] VITALS: BP 169/99
[2018-12-16 16:30] VITALS: BP 157/104
[2018-12-16 20:05] VITALS: BP 162/106
[2018-12-17] VITALS (7 sets, daily range): BP systolic 127–150; BP diastolic 87–107
[2018-12-17 03:42] LABS: ALBUMIN 2.3 g/dL (3.4-5.0); CALCIUM 8.1 mg/dL (8.5-10.1); PHOSPHORUS 5.6 mg/dL (2.5-4.9)
[2018-12-17 03:43] LABS: CREATININE 5.9 mg/dL (0.6-1.0); POTASSIUM 4.2 mmol/L (3.5-5.1)
[2018-12-17 04:40] LABS: HEMATOCRIT 30.7 % (37.0-47.0); HEMOGLOBIN 9.8 gm/dL (12.0-15.0); MCH 23.9 pg (26.0-34.0); MCHC 31.9 g/dL (28.0-37.0); MCV 74.9 fL (80.0-100.0); RBC 4.1 mil/uL (4.20-5.00); RDW 21.7 % (10.5-14.5); WBC 5.4 thou/uL (4.0-11.0)
--- NOTE | 2018-12-17 08:17 | NUR ---
ASSESSMENTS CHARTED. REQUESTED PAIN MED CHARTED. ABDOMINAL PAIN STILL SIGNIFICANT. DIET ADVANCED TO FULL LIQUIDS, PATIENT PASSING FLATUS, BUT NO BOWEL MOVEMENT SINCE 12/12.
--- NOTE | 2018-12-17 11:06 | PATH ---
[facility] [address] [place] [address] PATHOLOGY RPT PROCEDURE Name: BEAR SINCLAIR Room #: 209-P ADM IN M.R.#: [id number] ������������������ Admission: 12/12/18 ������������������ Date of : 50 Discharge: Report #: [id number] Path Case #: [id number] [facility] Accession Number: [id number] . 01 Material submitted: . small bowel - ISCHEMIC SMALL BOWEL . 01 Clinical history: . Internal hernia . 02 Diagnosis: Small bowel, small bowel resection: - Ischemic mucosal changes along with marked congestion as well as fibrous adhesions present on the serosal surface, history of internal hernia. - One margin on the small bowel segment and the large intestine margin showing viable/unremarkable mucosa (please see comment). - Negative for dysplasia or malignancy. - One reactive lymph node. (IUV:pit 12/16/2018) QTP/12/16/2018 . 02 Comment: The proximal margin on the small bowel and colon resection as well as one of the margins received on the unoriented segments of the longer small bowel show mild ischemic changes within the mucosa at the margins. One of the margins on the longer segment as well as the colonic margin of resection are unremarkable. It is likely that these represent the true surgical margins. Please correlate clinically. There is no dysplasia or malignancy present within the specimen. (IUV:pit 12/16/2018) . 02 Electronically signed: . Emily Wong MD, Pathologist NPI- [id number] . 01 Gross description: . The specimen is received in formalin, labeled "Bear Sinclair, ischemic small bowel". Received is an unoriented, serpiginous segment of small bowel measuring 73.9 cm in length by 2.6 cm in diameter. Both margins are stapled closed. The serosal surface is dusky red-schulz to red-black in appearance. The attached mesenteric fat measures up to 4.5 cm in thickness. Opening the specimen reveals pink-red mucosa with normal architectural folds. No distinct nodules, lesions or perforations are noted grossly. Sectioning through the attached mesenteric fat reveals yellow-brown to red-brown, slightly hemorrhagic cut surfaces with no grossly distinct lymph nodes. . [address] [address] PATHOLOGY RPT PROCEDURE Name: BEAR SINCLAIR Room #: 209-P ADM IN M.R.#: [id number] ������������������ Admission: 12/12/18 ������������������ Date of : 50 Discharge: Report #: [id number] Path Case #: [id number] Also received within the specimen container is a second segment of small bowel measuring 5.5 cm in length by 2.0 cm in diameter contiguous with a segment of cecum measuring 4.5 cm in length by 3.2 cm in diameter. Both margins are stapled closed. The small bowel serosa is dusky pink-schulz in appearance. The colonic serosa is pink-marino to pink-schulz and glistening in appearance. The attached pericolic fat measures up to 2.1 cm in thickness. The specimen is opened along the antimesenteric line to reveal pink-marino mucosa with minimal architectural folding. No distinct nodules or lesions are noted grossly. The ileocecal valve is pale marino and grossly unremarkable. The colonic mucosa is light marino to pink-marino in appearance with normal architectural folds. No distinct nodules or lesions are noted grossly. The appendix is absent. There is a moderate amount of adhesed yumiko on the serosal surface of the appendiceal orifice. Sectioning through the attached pericolic fat reveals a single lymph node measuring 0.5 cm in maximum dimensions. The specimen is submitted representatively as follows: . A1-A2 both margins of first segment of small bowel A3-A5 agency sales representative cross sections of first segment of small bowel mucosa A6 proximal small bowel margin of second segment A7 distal colonic margin of second segment A8 small bowel mucosa of second segment A9 ileocecal valve A10 colonic mucosa of second segment A11 intact lymph node. (CAA; 12/13/2018) QAC/QAC . 02 Pathologist provided ICD-10: K46.9 . 02 CPT . 435574 Specimen Comment: A courtesy copy of this report has been sent to Specimen Comment: [phone], , . Specimen Comment: Report sent to ,DR CHOPRA / DR MARTINEZ Performed at: [address], [place], [place] [id number] MD Mike Curry MD Phone: [phone] Performed at: [address] [id number] MD Emily Wong MD Phone: [phone]
--- NOTE | 2018-12-17 16:50 | NUR ---
ASSESSMENT CHARTED - MEDS PER OCT- NO REQUESTS FOR PAIN MEIDCATION TODAY. PT ADVANCED TO FULL LIQUID DIET FOR LUNCH CESARIO WELL - WILL HAVE REG DIET FOR DINNER -. PATIENT WITHBM X 2 - BLOODY STOOL SURGEON AWARE AND STATED THAT TO BE EXPECTED. PT AMBULATED ON THE UNIT - PT UNSTEADY ON FEET -LIMPING - STATING SHE DID NOT WALK LIKE THSI PRIOR TO SURGERY - OBTAINED WALKER FOR PATIENT TO USE AND PLACED PHYSICAL THERAPY CONSULT. UP IN THE CHAIR AT THE PRESENT TIME. NO CO'S
[2018-12-18 05:00] VITALS: BP 122/82
[2018-12-18 07:41] VITALS: BP 139/84
--- NOTE | 2018-12-18 08:01 | NUR ---
ASSESSMENTS CHARTED. C/O PAIN AT START OF SHIFT AND ONCE DURING THE NIGHT. MEDS GIVEN CHARTED. PT HAD LIQUID STOOL WITH RED BLOOD THROUGHOUT. PATIENT UNBALANCED WHEN AMBULATING. DEFINENTLY NEEDS GAIT BELT AND WALKER WHEN OUT OF BED. PLAN OF CARE TO CONTINUE AMBULATING, CONTINUE USING I.S. AND HAVING SUCCESS EATING A REGULAR DIET.
--- NOTE | 2018-12-18 10:19 | NUR ---
Assess for length of stay. S/P exploratory lap/ischemic bowel on 12/12. Hx ESRD with dialysis, anemia. Diet has new advanced past liquids. No wt loss in past 6 months. Possible discharge soon per chart review. Low nutrition risk
[2018-12-18 11:03] VITALS: BP 137/91
--- NOTE | 2018-12-18 12:51 | NUR ---
CHARTED PER ASSESSMENT, VSS, PATIENT IS DROWSY, ABDOMINAL PAIN RATED AT A 10. HYDROMORPHONE GIVEN.AT REASSESSMENT PAIN IS AN EIGHT. DIALYSIS PERFORMED.
[2018-12-18 15:14] VITALS: BP 163/96
--- NOTE | 2018-12-18 15:24 | NUR ---
spoke with patient who needed a walker to ambulate in hallway. Patient reports prev stroke in 2001 and she has a limp in her left leg. Patient stutters as she talks. She does not wear oxygen at home. [facility] 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 Noted therapy eval and discussed post acute care with patient. She reports she needs to return to work, she has bills to pay. She has not help at home to assist her. Questioned her dtr and she reports she doesnt help her and she has not spoken with her. Patient reports she has "no time to go to rehab." Patient reports she lives nearby in [facility] near [facility]. She plans to determine how she does with therapy in am.
[2018-12-18 20:58] VITALS: BP 135/91
[2018-12-19 04:00] VITALS: BP 115/35
[2018-12-19 07:12] VITALS: BP 134/88
[2018-12-19 08:42] LABS: HEMATOCRIT 30.2 % (37.0-47.0); HEMOGLOBIN 9.6 gm/dL (12.0-15.0); MCH 23.8 pg (26.0-34.0); MCHC 31.7 g/dL (28.0-37.0); RBC 4.02 mil/uL (4.20-5.00); RDW 21.5 % (10.5-14.5); WBC 6.5 thou/uL (4.0-11.0)
[2018-12-19 08:51] LABS: CALCIUM 9.1 mg/dL (8.5-10.1); CREATININE 5.2 mg/dL (0.6-1.0); MAGNESIUM 1.9 mg/dL (1.8-2.4); POTASSIUM 3.8 mmol/L (3.5-5.1)
--- NOTE | 2018-12-19 08:56 | NUR ---
ASSUME CARE 1900. INTEERMITTENT ABDO PAIN NOTED. UP WITH ASSISTANCE/ MODERATELY TOLERATING ACTIVITY. PROGRESSING WITH POC/ASSESMENT CHARTED. PLAN IS TO CONTINUE WITH ABX AND MONITOR SURGICAL SITE. ABDO SURGERY SITE SHANNAN ARE CDI. WILL CONTINUE TO MONITOR AND FOLLOW WITH POC
--- NOTE | 2018-12-19 13:52 | NUR ---
Visited with the pt at bedside regarding recommendtions for rehab. The pt is not interested in and would prefer to go to SNF at 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 [facility] SNF admissions aware of referral and will likely have a bed available for her tomorrow or Sunday. GI consult noted. Monitoring hgb and possible repeat EGD. Support provided. Will follow.
--- NOTE | 2018-12-19 15:28 | NUR ---
FAXED REFERRAL TO [facility] FOR SKILLED STAY SPOKE WITH ANGIE IN ADM, SHE RECEIVED REFERRAL AND WILL REVIEW. PT IS EMPLOYED AT [facility] [employer]. DCP TO FOLLOW.
[2018-12-19 15:44] VITALS: BP 132/86
--- NOTE | 2018-12-19 17:46 | NUR ---
ASSESSMENT CHARTED - MEDS PER OCT - NO REQUEST FOR PAIN MEDICATION THIS SHIFT - AMBULATED WITH PHYSICAL THERAPY - ORDERS FOR SPEECH AND OCC THERAPY TODAY -SEEN BY REHAB MEDICINE. CESARIO DIET AN FLUIDS WITH NO CO'S OF NAUSEA. PATIENT WITH ONE BM TODAY - STATES THAT IT WAS BLOODY - SEEN BY GI TODAY. NO CO'S AT THE PRESENT TIME.
[2018-12-19 19:26] VITALS: BP 102/75
[2018-12-20 03:04] VITALS: BP 130/97
[2018-12-20 06:32] LABS: HEMATOCRIT 22.7 % (37.0-47.0); MCH 23.6 pg (26.0-34.0); MCHC 31.3 g/dL (28.0-37.0); MCV 75.4 fL (80.0-100.0); RBC 3.01 mil/uL (4.20-5.00); WBC 5.6 thou/uL (4.0-11.0)
[2018-12-20 06:35] LABS: HEMOGLOBIN 7.1 gm/dL (12.0-15.0)
[2018-12-20 07:03] VITALS: BP 133/92
--- NOTE | 2018-12-20 07:50 | NUR ---
ASSUME CARE 1900. PT/VITALS STABLE. INTERMITTENT ABDO PAIN. UP WITH ASSISTANCE TO BSC. ASSESSMENT CHARTED. PROGRESSING WELL WITH POC. PLAN IS TO CONTINUE TO MANAGE PAIN/MONITOR FOR INFECTION AND PROMOTE HEALING. WILL CONTINUE TO MONITOR AND FOLLOW WITH POC
[2018-12-20 08:21] LABS: CALCIUM 8.5 mg/dL (8.5-10.1); MAGNESIUM 1.7 mg/dL (1.8-2.4); POTASSIUM 4.1 mmol/L (3.5-5.1)
[2018-12-20 08:23] LABS: CREATININE 6.9 mg/dL (0.6-1.0)
[2018-12-20 08:52] LABS: HEMATOCRIT 25.1 % (37.0-47.0); MCHC 31.7 g/dL (28.0-37.0); MCV 75.6 fL (80.0-100.0); RBC 3.33 mil/uL (4.20-5.00); RDW 21.4 % (10.5-14.5); WBC 7.5 thou/uL (4.0-11.0)
[2018-12-20 11:15] VITALS: BP 122/89
--- NOTE | 2018-12-20 14:06 | HC ---
[facility] [place] [address] CONSULTATION Name: IZA SINCLAIR Room #: 209-P ADM IN M.R.#: [id number] Admission: 12/12/18 ������������������ Attend Phys: Donald Rico Discharge: ������������������ Date of : 50 Report #: [id number] THIS REPORT FOR: //name// CC: Torni Tapia DATE OF SERVICE: 12/18/2018 HISTORY OF PRESENT ILLNESS: This is a 68-year-old female patient who was evaluated by me for weakness in the legs. This patient is an extremely poor historian. I cannot get any history how long it is going on. She said she had a stroke in the past. She does not know when the stroke was. It was several years ago. It left her with weakness on the leg. She thinks it is on the right side, but on examination, she does worse on the left side. After talking to her for a long time, I cannot tell whether her weakness is new or old and how long it is going on. From all indications, it is going on for some time. She thinks it is going on after stroke, which happened in early 1999. It is moderately severe. She has trouble walking because of that. REVIEW OF SYSTEMS: Indicates she was admitted with abdominal pain. She had surgery done. She had an obstruction there. She had end-stage renal disease. She has a history of hypertension, hysterectomy, appendectomy, AV fistula, gastric ulcer and TB. She also thinks she has a stroke, but she does not give a good history when the stroke was and how it affected her. She has history of carpal tunnel, secondary hyperparathyroidism, hypertension. She does not complain of any new eye, ENT, cardiac or respiratory symptoms. She did have abdominal symptoms. She does not have any new musculoskeletal, constitutional, dermatological, hematological, psychiatric, throat, allergic symptom associated with present symptomatology. PAST MEDICAL HISTORY: Positive for end-stage renal disease. FAMILY HISTORY: Negative for any early age stroke. SOCIAL HISTORY: She is a former smoker. She does not drink any alcohol. PHYSICAL EXAMINATION: Indicate she talks rapidly, but she cannot tell me what month and what day it is, and what hospital she is in. She is oriented. Her cranial nerve examination 2-12 looks mostly unremarkable. She does have trouble with left leg. It looks chronic. Her reflexes are present. Her position sense is intact. Tone looks about same, but her foot looks somewhat distorted. I could not look at the fundus. There is no meningeal sign. She is moderately built individual. She does not have any dysmorphic features of eyes, ears and face. Her blood pressure is 163/96, respiration is 18, pulse is 79. Her hearing and vision looks adequate. She has no thyroid mass. Pulses are difficult to feel. [address] [address] CONSULTATION Name: IZA SINCLAIR Room #: 209-P [facility] IN M.R.#: [id number] Admission: 12/12/18 ������������������ Attend Phys: Donald Rico Discharge: ������������������ Date of : 50 Report #: [id number] LABORATORY DATA: The patient has multiple abnormalities in the blood including a high creatinine and low hemoglobin. IMPRESSION: The patient's weakness looks chronic. She is such a poor historian and is very difficult to tell for sure. Have already ordered an MRI, we will check on that. If MRI demonstrates some abnormality, we can see if any management need to be done. Otherwise, she needs to be followed up as an outpatient because she will need EMG, which we do not have and the symptoms look chronic. Thank you very much for this referral and if you have any question, please feel free to contact me. ��������������������������������������������� <ELECTRONICALLY SIGNED> ���������������������������������������� By: Sedrick Reynoso MD ��������������������������������������������� 12/20/18 1406 1602 0416 Sedrick Reynoso MD /nt
--- NOTE | 2018-12-20 14:08 | NUR ---
[facility] has accepted the pt and would have a bed for her this weekend if her hgb remains stable. The rehab museum librarian has visited with the pt and talked with her dtr and both are in agreement. Referral to [facility] cancelled.
[2018-12-20 15:30] VITALS: BP 86/52
--- NOTE | 2018-12-20 17:03 | NUR ---
assessment as charted - meds as per oct - given hydrocodone for co's of pain with min/mod effect on abdo pain. pt up to the bathroom - has had 3 bloody stools this shift - patient stated that she has heammorhoids and thinks these may be bleeding - notified Dr Porras by page requesting cream and to inform him @ 1650 and have not gotten reponse as of yet. notified this am of Heam drop from 9.6 to 7.1 rechecked and heam was 8. pt had dialysis this shift 2 litres removed, [facility] feels a little tierd post treatent. up to the bathroom with the use of a walker, seen by physical therapy. no co's at the present time.
--- NOTE | 2018-12-20 17:28 | NUR ---
PATIENT POSSIBLE ADMISSION TO ACUTE REHAB/[facility] OVER WEEKEND. IF PATIENT IS MEDICALLY STABLE OVER WEEKEND (12/21 AND 12/22/2018) AND READY FOR ACUTE HOSPITAL DISCHAGRE, [facility] - [facility] - WILL ASSIST IN REHAB ADMISSION PROCESS. PLEASE CALL [facility] AT [phone]. THANK YOU FOR THIS REFERRAL.
--- NOTE | 2018-12-20 17:44 | NUR ---
Dr has not responded to request for medications for heammhroids.
[2018-12-20 19:41] VITALS: BP 150/91
--- NOTE | 2018-12-21 03:11 | NUR ---
ASSESSMENT DOCUMENTED.PT RESTING IN NO ACUTE DISTRESS.PAIN MEDS GIVEN FOR C/O ABDOMEN PAIN W/SOME RELIEF.INCISIONS TOO ABD INTACT,NO DRAINAGE OR ACTIVE BLEEDING.SUBHA.VSS.REMAINS A/OX4.NO C/O BLOODY STOOLS SO FAR THIS SHIFT.POC IS TO DISCHARGE TO REHAB.WILL CONT TO MONITOR PER POC.
[2018-12-21 04:55] VITALS: BP 97/62
[2018-12-21 07:19] VITALS: BP 111/67
[2018-12-21 07:23] LABS: HEMOGLOBIN 6.9 gm/dL (12.0-15.0); MCHC 32.8 g/dL (28.0-37.0); MCV 76.4 fL (80.0-100.0); RBC 2.75 mil/uL (4.20-5.00); WBC 6.1 thou/uL (4.0-11.0)
[2018-12-21 07:42] LABS: CALCIUM 8.6 mg/dL (8.5-10.1); MAGNESIUM 1.5 mg/dL (1.8-2.4)
[2018-12-21 07:45] LABS: CREATININE 5.1 mg/dL (0.6-1.0)
[2018-12-21 12:00] VITALS: BP 120/78
[2018-12-21 12:55] VITALS: BP 93/57; BP 95/59
[2018-12-21 16:00] VITALS: BP 111/65
--- NOTE | 2018-12-21 18:21 | NUR ---
ASSUMED CARE OF PATIENT AT 0700. PATIENT'S DAUGHTER AND HER FAMILY WERE AT THE BEDSIDE FOR HALF THE DAY. THE PATIENT HAD AN RBC SCAN FOLLOWED BY A BLOOD TRANSFUSION OF ONE UNIT. PATIENT TOLERATED THE PROCEDURES WELL. HEMOGLOBIN RAISED UP TO 8. PATIENT IS AMBULATING TO THE BR WITH GAIT BELT AND WALKER. SHE IS UNSTEADY AND MUST HAVE SOMEONE WITH HER. SHE IS COMPLIANT WITH CALLING OUT FOR HELP. PATIENT STATES THAT SHE IS FEELING BETTER THAN SHE DID THIS MORNING. ASSESSMENTS CHARTED. PATIENT TO CONTINUE WITH POC.
[2018-12-21 20:25] VITALS: BP 104/71
[2018-12-22 04:45] VITALS: BP 103/79
[2018-12-22 05:17] LABS: HEMATOCRIT 24.2 % (37.0-47.0); HEMOGLOBIN 7.8 gm/dL (12.0-15.0); MCH 24.8 pg (26.0-34.0); MCHC 32.2 g/dL (28.0-37.0); RBC 3.14 mil/uL (4.20-5.00); WBC 6.4 thou/uL (4.0-11.0)
[2018-12-22 05:22] LABS: ALBUMIN 2.2 g/dL (3.4-5.0); CALCIUM 8.4 mg/dL (8.5-10.1); PHOSPHORUS 4.5 mg/dL (2.5-4.9)
[2018-12-22 05:24] LABS: CREATININE 6.8 mg/dL (0.6-1.0)
--- NOTE | 2018-12-22 05:46 | NUR ---
ASSUMED PT CARE AT 1900 WITH NO SIGN OF DISTRESS NOTED IN PT. PT IS SLEEPING.ASSESSMENT DOCUMENTED. SCHEDULED MEDS ADMINISTERED TO PT. PT TOLERATED PO INTAKE. NO SIGN OF DISTRESS. PT IS STABLE THROUGHOUT THE NIGHT, DENIES ANY FURTHER NEEDS AT THIS TIME.
[2018-12-22 07:57] VITALS: BP 118/95
[2018-12-22 11:42] VITALS: BP 106/68
[2018-12-22 15:33] VITALS: BP 102/72
[2018-12-22 20:00] VITALS: BP 144/80
[2018-12-23 04:00] VITALS: BP 123/72; BP 123/79
[2018-12-23 04:09] LABS: HEMATOCRIT 23.4 % (37.0-47.0); HEMOGLOBIN 7.5 gm/dL (12.0-15.0); MCH 24.7 pg (26.0-34.0); MCHC 31.8 g/dL (28.0-37.0); MCV 77.7 fL (80.0-100.0); RBC 3.02 mil/uL (4.20-5.00); RDW 19.9 % (10.5-14.5)
--- NOTE | 2018-12-23 06:22 | NUR ---
ASSUMED PT CARE AT 1900 WITH NO SIGN OF DISTRESS NOTED IN PT. PT IS ALERT AND ORIENTED BUT DROWSY. DENIES ANY NEEDS AT THIS TIME. SCHEDULED MEDS ADMINISTERED TO PT. PAIN MED ADMINISTERED REQUESTED. VITAL SIGNS STABLE. PT IS SCHEDULED FOR DIALYSIS TODAY. PT IS STABLE. DENIES ANY FURTHER NEEDS AT THIS TIME.
[2018-12-23 15:52] VITALS: BP 154/99
--- NOTE | 2018-12-23 16:12 | NUR ---
ASSUMED CARE AT SHIFT CHANGE, ALERT AND ORIENTED X4. SR ON THE MONITOR, AND DISCOMFORT NOTED. DIALYSYS DONE TODAY. PLAN IS TO DISCHARGE PATIENT TO [facility] AND WILL CONTINUE WITH POC.
[2018-12-23 20:04] VITALS: BP 106/66
[2018-12-24 04:01] VITALS: BP 121/84
--- NOTE | 2018-12-24 04:44 | NUR ---
ASSESSMENTS CHARTED. SHANNAN WERE REMOVED EARLIER IN THE DAY. INCISION IS CLEAN, DRY, INTACT. C/O ABDOMINAL PAIN 9/10 MEDS CHARTED. PATIENT VERY WEAK AFTER DIALYSIS. PLAN OF CARE TO TRANSFER TO [facility] IN THE AM FOR REHAB.
[2018-12-24 08:03] VITALS: BP 144/83
[2018-12-24 09:03] LABS: HEMATOCRIT 25.9 % (37.0-47.0); HEMOGLOBIN 8.1 gm/dL (12.0-15.0); MCH 24.8 pg (26.0-34.0); MCHC 31.5 g/dL (28.0-37.0); MCV 78.8 fL (80.0-100.0); RBC 3.29 mil/uL (4.20-5.00); RDW 20.1 % (10.5-14.5); WBC 6.9 thou/uL (4.0-11.0)
[2018-12-24 11:02] VITALS: BP 144/77
[2018-12-24] MEDS ORDERED: CARVEDILOL12.5 MG PO (11:50)
[2018-12-24] MEDS ORDERED: GABAPENTIN 100100 MG PO (11:50)
[2018-12-24] MEDS ORDERED: NORCO 5-325 TA1 EACH PO (11:50)
[2018-12-24] MEDS ORDERED: PROCRIT20000 UNIT SUBQ (11:50)
--- NOTE | 2018-12-24 14:40 | NUR ---
PATIENT ACCEPTED TO [facility] PLAN DC LATER TODAY. PATIENT REPORTS SHE HAS NOTIFIED HER FAMILY.
[2018-12-24 15:22] VITALS: BP 133/92
--- NOTE | 2018-12-24 15:45 | NUR ---
ASSUMED CARE AT SHIFT CHANGE, ALERT AND ORIENTED X4. SR ON THE MONITOR AND VSS. X1 BM TODAY. ADB INCISION D/C/I. REPORT GIVEN TO [facility] RN, AND PATIENT WILL TARNSFER TO [facility].
== END 2018-12-24 16:32 | DRG 329 ==
LOC: ER 09:58 → EROBS 13:40 → 2N 13:40 → ENTRNSPT 12-24 15:54 → 2N 12-24 16:32
PROVIDERS: Hospitalist; Internal Medicine; Internal Medicine Nephrology; Nurse Practitioner; Physician Assistant; ADMIT Family Medicine
PROC: 0DB80ZZ Excision of Small Intestine, Open Approach (ICD-10-PCS; 2018-12-12)
PROC: 5A1D70Z Performance of Urinary Filtration, Intermittent, Less than 6 Hours Per Day (ICD-10-PCS; 2018-12-16)
PROC: 5A1D70Z Performance of Urinary Filtration, Intermittent, Less than 6 Hours Per Day (ICD-10-PCS; 2018-12-18)
PROC: 5A1D70Z Performance of Urinary Filtration, Intermittent, Less than 6 Hours Per Day (ICD-10-PCS; 2018-12-20)
PROC: 30233N1 Transfusion of Nonautologous Red Blood Cells into Peripheral Vein, Percutaneous Approach (ICD-10-PCS; principal; 2018-12-21)
PROC: 5A1D70Z Performance of Urinary Filtration, Intermittent, Less than 6 Hours Per Day (ICD-10-PCS; 2018-12-23)
DX: K55.029 Acute infarction of small intestine, extent unspecified (principal); N18.6 End stage renal disease; K56.50 Intestinal adhesions [bands], unspecified as to partial versus complete obstruction; I12.0 Hypertensive chronic kidney disease with stage 5 chronic kidney disease or end stage renal disease; N25.81 Secondary hyperparathyroidism of renal origin; K56.609 Unspecified intestinal obstruction, unspecified as to partial versus complete obstruction; T82.868A Thrombosis due to vascular prosthetic devices, implants and grafts, initial encounter; E46 Unspecified protein-calorie malnutrition; D62 Acute posthemorrhagic anemia; K55.9 Vascular disorder of intestine, unspecified; M47.26 Other spondylosis with radiculopathy, lumbar region; M48.07 Spinal stenosis, lumbosacral region; D50.9 Iron deficiency anemia, unspecified; R26.9 Unspecified abnormalities of gait and mobility; K46.9 Unspecified abdominal hernia without obstruction or gangrene; E87.5 Hyperkalemia; K21.9 Gastro-esophageal reflux disease without esophagitis; Z99.2 Dependence on renal dialysis; Z90.710 Acquired absence of both cervix and uterus; Z90.49 Acquired absence of other specified parts of digestive tract; Z86.73 Personal history of transient ischemic attack (TIA), and cerebral infarction without residual deficits; Z87.891 Personal history of nicotine dependence; Z68.22 Body mass index [BMI] 22.0-22.9, adult
CPT/HCPCS: 10081; 32100; 50010; 50093; 50101; 50386; 50455; 51390; 51391; 51412; 56527; 56528; 62110; 62900; 70005

== ENCOUNTER 2018-12-24 13:22 | Inpatient (IN) | payer OTHER ==
[~2018-12-24] VITALS: Ht 165.1 cm; Wt 59.9 kg
[~2018-12-24 13:22] MED LIST changes: +CARVEDILOL12.5 MG PO; +GABAPENTIN 100100 MG PO; +NORCO 5-325 TA1 EACH PO; +PROCRIT20000 UNIT SUBQ
[2018-12-24 16:30] VITALS: BP 150/97
[2018-12-24 20:18] VITALS: BP 158/91
--- NOTE | 2018-12-25 01:52 | NUR ---
PT ADMITTED TO 509 LAST EVENING AT 1630. PT ALERT AND ORIENTED X 4 BUT FORGETFUL. RIGHT TESSIO DRESSING C/D/I. LEFT ARM FISTULA WITH BRUIT AND THRILL. INCISION TO FISTULA C/D/I. ABD INCISION C/D/I AND HEALING. SOME WEAKNESS IN RLE. PT DENIES PAIN OR DISCOMFORT. PT ORIENTED TO ROOM AND USE OF CALL LIGHT. CONSENTS SIGNED. FALL PRECAUTIONS EXPLAINED TO PT. BED ALARM ON FOR SAFETY. PT APPEARS TO BE SLEEPING ON HOURLY ROUNDS.
[2018-12-25 06:10] LABS: HEMATOCRIT 23.7 % (37.0-47.0); HEMOGLOBIN 7.7 gm/dL (12.0-15.0); MCH 25.2 pg (26.0-34.0); MCHC 32.3 g/dL (28.0-37.0); MCV 78.2 fL (80.0-100.0); RBC 3.03 mil/uL (4.20-5.00); RDW 20.9 % (10.5-14.5); WBC 7.1 thou/uL (4.0-11.0)
[2018-12-25 06:22] LABS: CALCIUM 8.7 mg/dL (8.5-10.1); CREATININE 7.4 mg/dL (0.6-1.0)
[2018-12-25 07:33] VITALS: BP 166/100
--- NOTE | 2018-12-25 15:11 | NUR ---
chart review, intro to cm, transition of care and team meeting. pt able to make her needs know. 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, share fare is her transport. no hh in past. manage own medication"/zaynab. cm spoke with daughter oziel intro to cm and dcp " mom lives at [address], uses elevator. need to know if she is not suppose to do stairs for medical reason, they could try move her apartment to the 1st floor. never driving. works and goes to dialysis at [facility]. thank you for calling"/oziel will cont following as needed for dc needs.
--- NOTE | 2018-12-25 16:47 | NUR ---
ASSUMED CARE AT APPROX 0715. PATIENT A/O X4, FORGETFUL AT TIMES, NEEDING CUES FOR SEQUENCING AND SAFETY WITH TRANSFERS. UP X1 ASSIST GB AND WALKER. BP ELEVATED THIS AM, DIRECTOR OF MANAGED SERVICES ROUNDED ON PATIENT AND ADJUSTED ANTIHYPERTENSIVE MEDICATION. PLAN IS FOR PATIENT TO DIALYZE TOMORROW AFTERNOON,PATIENT INFORMED. IMMATURE LEFT AV FISTULA HAS GOOD BRUIT AND THRILL, PATIENT'S DIALYSIS ACCESS IS RIGHT CHEST TESSIO- DRESSING IS C/D/I. HAS RIGHT FOREARM SALINE LOCK. PATIENT C/O GENERALIZED ABDOMINAL PAIN, MEDICATED FOR PAIN NEEDED. FALL PRECAUTIONS IN PLACE. ROUNDED ON FREQUENTLY. WILL CONTINUE TO MONITOR.
[2018-12-25 19:25] VITALS: BP 126/91
--- NOTE | 2018-12-26 01:09 | NUR ---
PT ALERT AND ORIENTED X 4. C/O ABDOMINAL INCISION PAIN RATING 10/10. REFUSED ANY PAIN MEDS. INCISION ON ABD HEALING. RIGHT TESSIO DRESSING C/D/I. BED ALARM ON FOR SAFETY. PT APPEARS TO BE SLEEPING ON HOURLY ROUNDS.
[2018-12-26 07:36] VITALS: BP 150/82
--- NOTE | 2018-12-26 09:34 | NUR ---
PATIENT'S FAMILY MEMBER CALLED LAST NIGHT, AND ASKED IF THEY COULD BRING IN [employer] CH[employer] AND FRIES FOR HER. ADVISED AGAINST BRINGING THESE THINGS DUE TO HER STRICT DIETARY NEEDS AND FAMILY ASKED IF THERE WAS A WAY TO FIND OUT WHAT THEY COULD BRING IN (FRUITS, VEGETABLES, ETC) THE PT IS TIRED OF HOSPITAL FOOD. OFFERED TO CONTACT THE GRAPHIC DESIGNER TO TRY TO GET THEIR RECOMMENDATIONS, AND THE PT'S FAMILY STATED THAT THEY WOULD REALLY APPRECIATE THE GUIDANCE. DISCUSSED THIS WITH THE PATIENT THIS MORNING, AND WITH HER NURSE. BOTH AGREED THAT IT WOULD BE GREAT IF THE GRAPHIC DESIGNER COULD GIVE INFORMATION TO THE FAMILY, AND A MESSAGE WAS LEFT ON THE VOICEMAIL FOR THE RD. CONTACT INFORMATION IS FOLLOWS: GORGE BLAIR IS THE DAUGHTER, CELL, HOME, AND THERE IS A SECOND CONTACT LISTED ON THE FACESHEET: ISAAC EATON (ANOTHER DTR) [phone].
--- NOTE | 2018-12-26 11:34 | NUR ---
Nutrition: Called dtrs to answer diet related questions/appropriate foods for renal diet. No answer, left messages with RD contact info to call back. Will leave written information in patients room and review alternative menu ordering as well.
[2018-12-26 21:05] VITALS: BP 136/85
--- NOTE | 2018-12-26 21:20 | NUR ---
ASSUMED CARE AT APPROX 0715. PATIENT A/O X4. BP ELEVATED, BP MEDS ADMINISTERED PER ORDER, NEPHROLOGY AWARE. PATIENT DIALYZED THIS DATE, PRE-MEDICATED FOR PAIN PRIOR TO DIALYSIS. LEFT AV FISTULA HAS GOOD BRUIT AND THRILL, PATIENT'S DIALYSIS ACCESS IS RIGHT CHEST TESSIO, DRESSING C/D/I. FALL PRECAUTIONS IN PLACE. PATIENT'S FAMILY PLACED IN CONTACT WITH ROOF PAINTER TO DISCUSS RENAL DIET/RECOMMENDATIONS FOR BRINING FOOD FROM HOME. FALL PRECAUTIONS IN PLACE.
--- NOTE | 2018-12-27 01:00 | NUR ---
UP TO BATHROOM WITH LIGHT CONTACT GUARD ASSIST, SLIGHTLY UNSTEADY. SMALL BM. NO BP OR LAB ON LEFT ARM WHICH HAS A MATURING AV FISTULA.
[2018-12-27 05:32] LABS: HEMATOCRIT 22.9 % (37.0-47.0); HEMOGLOBIN 7.3 gm/dL (12.0-15.0)
[2018-12-27 07:35] VITALS: BP 167/115
[2018-12-27 16:08] LABS: HEPATITIS B SURFACE AG Negative (Negative)
[2018-12-27 16:37] VITALS: BP 118/84
[2018-12-27 19:20] VITALS: BP 171/104
--- NOTE | 2018-12-27 19:30 | NUR ---
ASSUMED CARE AT APPROX 0715. PATIENT A/O X4. VSS ON RA.C/O LEFT PAIN 10/10 WHILE HAD THERAPY. GAVE PRN HYDROCODONE AND DENIES PAIN AFTER THAT. REASSESSMENT PER CHART. PT HAD BM THIS AM. LEFT AV FISTULA HAS GOOD BRUIT AND THRILL, PATIENT'S DIALYSIS ACCESS IS RIGHT CHEST TESSIO, DRESSING C/D/I. OFFERED SUPPORTIVE CARE. ENCOURAGED PT TO VOICE HER NEEDS. HAD GOOD DAY, FAMILY VISIT AFTER THERAPY.FALL PRECAUTIONS IN PLACE. CALL LIGHT WITHIN REACH. ASSISTED TO BED. HAS NO QUESTION OR CONCERN. RESTING IN BED. GAVE REPORT TO NIGHT NURSE TO CONTINUE TO MONITOR.
[2018-12-27 21:46] VITALS: BP 157/97
--- NOTE | 2018-12-28 02:55 | NUR ---
PATIENT ALERT AND ORIENTED X4. BEDREST DURING THE NIGHT. TORNADO WARNING IN EVENING AND PATIENT TRANSFERED TO HALLWAY IN HER BED. TOLERATED WELL. COOPERATIVE WITH CARE. FISTULA POSITIVE FOR BRUITT AND THRILL. TESSIO DRESSING D/I. BP ELEVATED AT BEGINNING OF SHIFT, HOWEVER, DOWN AFTER SCHEDULED MEDICATION. MEDICATED FOR PAIN X1 AT TIME OF THIS NOTE WITH GOOD RELIEF, ASLEEP. WILL MONITOR.
[2018-12-28 08:54] VITALS: BP 100/37
--- NOTE | 2018-12-28 09:05 | NUR ---
ASSUMED CARE AT APPROX 0715. REPORT SLEPT FAIR LAST NIGHT. OT GAVE PT UP FOR BATH. B/P WAS 100/37 HR 91. HELD CARVEDILOL AT 0800. PT ATE BREAKFAST. RECHECK B/P IT IS 139/108 NOW. MORNING MEDS GIVEN. PT C/O ABD PAIN 05/15, BS ACTIVE. GIVE PRN HYDROCODONE. PT IS WORKING WITH PT NOW. PATIENT A/O X4. LEFT AV FISTULA HAS GOOD BRUIT AND THRILL, PATIENT'S DIALYSIS ACCESS IS RIGHT CHEST TESSIO, DRESSING C/D/I. FALL PRECAUTIONS IN PLACE. HER GOAL IS TO WALK AND CONTINUE THERAPY TODAY. FALL PRECAUTIONS IN PLACE. CHECK FREQUENTLY FOR NEEDS AND SAFETY. WILL HAVE DIALYSIS LATER TODAY.
[2018-12-28 17:19] VITALS: BP 172/69
[2018-12-28 20:15] VITALS: BP 121/69
--- NOTE | 2018-12-29 03:28 | NUR ---
SLEEPING WELL UNTIL AWAKE NOW WITH PAIN, MEDICATED AT THIS TIME. PATIENT STATES THAT HER ABDOMINAL PAIN IS CLOSE TO 10 OF 10, BUT PAIN MED USUALLY CONTROLS IT DOWN TO 4 OR 5. LEFT ARM AV FISTULA IS MATURING AND HAS POSITIVE BRUIT AND THRILL.
[2018-12-29 05:39] LABS: HEMOGLOBIN 7.1 gm/dL (12.0-15.0); MCH 24.9 pg (26.0-34.0); MCHC 32.3 g/dL (28.0-37.0); MCV 77.1 fL (80.0-100.0); RBC 2.85 mil/uL (4.20-5.00); RDW 19.8 % (10.5-14.5); WBC 5.1 thou/uL (4.0-11.0)
[2018-12-29 07:30] VITALS: BP 125/89
--- NOTE | 2018-12-29 18:29 | NUR ---
ASSUMED CARE AT APPROX 0715. PATIENT A/O X4. C/O ABDOMINAL PAIN. ABD INCISION WELL APPROXIMATED. PAIN MEDS ADMINISTERED PRN PER ORDERS, PATIENT REPORTED RELIEF BY AFTERNOON. UP TO CHAIR OR EOB FOR MEALS. PATIENT REPORTED BM PRIOR TO START OF SHIFT. RIGHT CHEST TESSIO DRESSING C/D/I. LEFT AV FISTULA HAS GOOD BRUIT AND THRILL. UP X1 ASSIST GAIT BELT AND WALKER. CALLS APPROPRIATELY FOR ASSITANCE. FALL PRECAUTIONS IN PLACE. RESTING IN BED AT THIS TIME. WILL CONTINUE TO MONITOR.
[2018-12-29 19:26] VITALS: BP 128/78
--- NOTE | 2018-12-30 03:18 | NUR ---
LIMB ALERT ON LEFT ARM IN ORDER TO PROTECT MATURING AV FISTULA IN LEFT FOREARM. PATIENT HAS POST-OP PAIN IN ABDOMEN, BUT HAS DECLINED PAIN MED SO FAR THIS SHIFT, PLEASANT
[2018-12-30 07:30] VITALS: BP 168/105
--- NOTE | 2018-12-30 09:46 | NUR ---
NOTICED LABS ON 12/29 SHOWED HGB WAS 7.1. PT'S DAUGHTER CALLED TO SEE HOW HER HGB NOW AND CONCERN WHY IT WAS LOW. NOTIFIED ANGIE LOBO THIS AM ABOUT HGB 7.1 YESTERDAY AND TO SEE IF PT CAN BE ON IRON SUPPLEMENT. YAMIL SUGGESTED THIS WRITE TO FOLLOW UP WITH GI SINCE GI HAS BEEN ON PT'S CASE. NOTICED FROM GI'S NOTE THAT HGB IS STABLE D/T RECENT SURGERY AND THEY SIGNED OFF. CALLED YAMIL AND SHE SAID SHE WILL CHECK HGB TOMORROW. PT C/O ABD PAIN, HYDROCODONE WAS D/C YESTERDAY WITHOUT KNOWN REASON. NOTIFIED YAMIL THAT PT IS IN PAIN, NEEDS PRN PAIN MED BESIDE TYLENOL SINCE PT REFUSE TAKING TYLENOL FOR PAIN SHE SAID "IT DOES NOTHING" AND HYDROCODONE WAS D/C YESTERDAY. SHE SAID SHE WILL LOOK INTO IT,WILL CONTINUE TO MONITOR. SHIFT NOTE: PT SAID HER SLEEP WAS OFF AND ON LAST NIGHT. C/O PAIN ABD 03/15, HAD BM YESTERDAY. DENIES N/V. UP TO RECLINER EATING BREAKFAST. OT GAVE HELP PT WITH SPONGE BATH. MORNING MEDS GIVEN. OFFERED SUPPORTIVE CARE. ENCOURAGED PT TO VOICE HER NEEDS. PT CAN BE IMPULSIVE AT TIME. FALL PRECAUTION IN PLACE. CHECK FREQUENTLY FOR NEEDS AND SAFETY. WILL CONTINUE TO MONITOR.
[2018-12-30 19:20] VITALS: BP 148/103
--- NOTE | 2018-12-31 03:21 | NUR ---
ASSUMED CARE AT 1900, ASSESSMENT COMPLETED. PT DENIES PAIN SO FAR THIS SHIFT; DENIES NAUSEA OR SOB. CALLS APPROPRIATELY FOR ASSISTANCE TO BATHROOM, STANDBY ASSIST GETTING UP AND DOWN, USES WALKER. PT UNDRESSED SELF AND PUT PAJAMAS ON, HAD TO USE HANDS TO LIFT LEFT LEG UP AND GET PANT LEG ON, WELL LIFT LEG IN/OUT OF BED. OFFERED MELATONIN FOR SLEEP, BUT PT DECLINED. NO OTHER CONCERNS, WILL CONTINUE TO MONITOR.
[2018-12-31 05:31] LABS: ABSOLUTE NEUTROPHILS 2.7 thou/uL (1.4-8.2); BASOPHILS 0.9 % (0.0-2.0); EOSINOPHILS 3.4 % (0.0-3.0); HEMOGLOBIN 7.2 gm/dL (12.0-15.0); LYMPHOCYTES 22.2 % (24.0-44.0); MCH 25.2 pg (26.0-34.0); MCHC 32.6 g/dL (28.0-37.0); MCV 77.2 fL (80.0-100.0); MONOCYTES 11.5 % (1.0-8.0); PLATELET COUNT 320 thou/uL (150-400); RBC 2.85 mil/uL (4.20-5.00); RDW 19.6 % (10.5-14.5); WBC 4.4 thou/uL (4.0-11.0)
[2018-12-31 05:39] LABS: ALBUMIN 2.3 g/dL (3.4-5.0); CALCIUM 8.8 mg/dL (8.5-10.1); CREATININE 8.4 mg/dL (0.6-1.0); MAGNESIUM 1.5 mg/dL (1.8-2.4); PHOSPHORUS 5.2 mg/dL (2.5-4.9)
[2018-12-31 08:02] VITALS: BP 133/94
--- NOTE | 2018-12-31 13:32 | NUR ---
team meeting, recommendation: skilled vs 24 hours supervision with hh( pt, ot,st, and nursing) medication and fin management, cont with outpt [facility]. .
--- NOTE | 2018-12-31 17:45 | NUR ---
ASSUMED CARE AT APPROX 0715. PATIENT A/O X4. REPORTS SLEPT GOOD LAST NIGHT. UP FOR OT/PT/ST. C/O ABDOMINAL PAIN, [facility]. ABD INCISION HEALED. UP TO CHAIR OR EOB FOR MEALS. PATIENT REPORTED LAST BM WAS LAST NIGHT RIGHT CHEST TESSIO DRESSING C/D/I. LEFT AV FISTULA HAS GOOD BRUIT AND THRILL. UP X1 ASSIST GAIT BELT AND WALKER. HAD DIALYSIS TODAY. HAD 3L FLUID OFF. LAST B/P 127/79, HR 79. ATE 75% DINNER. DENIES PAIN NOW. ASSISTED WITH LAUDRY. CALLS APPROPRIATELY FOR ASSITANCE. FALL PRECAUTIONS IN PLACE. RESTING IN BED AT THIS TIME. WILL GIVE REPORT TO NIGHT NURSE TO CONTINUE TO MONITOR.
[2018-12-31 20:00] VITALS: BP 139/93
--- NOTE | 2019-01-01 02:51 | NUR ---
PT ALERT AND ORIENTED X 4. AMB TO BR WITH WALKER AND ASSIST X 1 WITHOUT DIFFICULTY. PT IMPULSIVE AT TIMES. PT DENIES PAIN OR DISCOMFORT. BED ALARM ON FOR SAFETY. PT CHECKED ON HOURLY ROUNDS. HAS BEEN AWAKE MUCH OF NIGHT. NOW SORTING OUT HER MAIL.
--- NOTE | 2019-01-01 07:10 | NUR ---
pt up in bed, tv on, and eye open. re-intro to cm and dcp. education on recommendation on skilled vs home with hh and 24hr supervision. no working, and no driving. " no i am going home, i know i spoke with my daughter last night and she told me. i am not doing anymore rehab. i will go home. " i am not going to work right now. i have elevator, don't drive. go to dialysis. i will not go to rehab. i can cook and take care of myself"/zaynab. recommendation of hh, with some possible pd " i cant afford private duty. hh is fine"/pt. list provided " i don't care [place] is fine since have private duty all so"/pt. discussed with . pt not respective to snf, hh with ( pt,ot,st,nursing,bath aide and sw). will discuss with family to see if could provide frequent checks and medication management and bills. pt stated during visit " who going to pay my bill, i will go home to my house"/pt.
[2019-01-01 08:15] VITALS: BP 122/86
--- NOTE | 2019-01-01 09:22 | NUR ---
Followup: spoke with daughter again over phone to discuss food preferneces and daughter also requesting another copy of education materials for renal diet. Able to speak with pt while on dialysis and she has alternative menu with items allowed. Outside food discouraged. Remains low nutrition risk
--- NOTE | 2019-01-01 11:27 | NUR ---
discharge planning: dp sent hh referral to [facility] , patient likelty to dc 01/03 or 01/04/19. Need pt ot st, nursing, bath aid, sw.
--- NOTE | 2019-01-01 15:07 | NUR ---
Patient participated in community reintegration on 01/01/19 with PHYSICAL THERAPY. Refer to documentation by RAVI PHYSICAL THERAPIST.
--- NOTE | 2019-01-01 19:45 | NUR ---
ASSUMED CARE AT APPROX 0715. PATIENT A/O X4. FORGETFUL, IMPULSIVE AT TIMES. FALL PRECAUTIONS IN PLACE. VSS. PATIENT HAD HYPOTENSIVE EPISODE DURING PHYSICAL THERAPY. DIRECTOR CONSTRUCTION SERVICES NOTIFIED, BP MEDS ADJUSTED. PATIENT'S DAUGHTER NOTIFIED OF PATIENT REFUSING SNF UPON DISCHARGE. CM SPOKE WITH PATIENT AND NOTIFIED PROVIDER. PATIENT'S DAUGHTER STATED SHE WOULD CALL HER MOTHER AND DISCUSS HER MOTHER'S WISHES. PATIENT PARTICIPATED IN THERAPY. UP X1 ASSIST GB AND WALKER. AMBULATING TO TOILET AND BACK. BM THIS DATE. REQUESTED PAIN MEDICINE X1 THIS SHIFT, DENIED NEED OF PAIN MEDS ON HOURLY ROUNDS. PATIENT RESTING IN BED AT CHANGE OF SHIFT.
[2019-01-01 20:01] VITALS: BP 161/97
--- NOTE | 2019-01-02 03:22 | NUR ---
PT ALERT AND ORIENTED X 4. AMB TO BR WITH WALKER AND ASSIST X 1 WITHOUT DIFFICULTY. PT DENIES PAIN OR DISCOMFORT. MELATONIN GIVEN AT HS FOR SLEEP. BED ALARM ON FOR SAFETY. PT APPEARS TO BE SLEEPING ON HOURLY ROUNDS.
[2019-01-02 05:46] LABS: HEMATOCRIT 22.4 % (37.0-47.0); HEMOGLOBIN 7.3 gm/dL (12.0-15.0); MCH 25.1 pg (26.0-34.0); MCHC 32.5 g/dL (28.0-37.0); MCV 77.3 fL (80.0-100.0); RBC 2.9 mil/uL (4.20-5.00); RDW 19.2 % (10.5-14.5); WBC 4.6 thou/uL (4.0-11.0)
[2019-01-02 06:10] LABS: ALBUMIN 2.4 g/dL (3.4-5.0); CALCIUM 8.9 mg/dL (8.5-10.1); CREATININE 7.5 mg/dL (0.6-1.0); PHOSPHORUS 5.8 mg/dL (2.5-4.9); POTASSIUM 4.6 mmol/L (3.5-5.1)
[2019-01-02 10:35] VITALS: BP 114/71
[2019-01-02 10:54] VITALS: BP 139/104
--- NOTE | 2019-01-02 12:52 | NUR ---
ASSUMED CARE AT APPROX 0715. PATIENT A/O X4. REPORTS SLEPT GOOD LAST NIGHT WITH MELATONIN. DENIES PAIN. UP FOR OT/PT/ST. ABD INCISION HEALED. UP TO CHAIR OR EOB FOR MEALS. PATIENT REPORTED LAST BM WAS LAST NIGHT RIGHT CHEST TESSIO DRESSING C/D/I. LEFT AV FISTULA HAS GOOD BRUIT AND THRILL. UP X1 ASSIST GAIT BELT AND WALKER. MORNING MEDS GIVEN ORDER. B/P DOWN LITTLE SEE [facility]. DR. CALIX MADE ROUND AND AWARE. HEPARIN ORDER FOR DIALYSIS TODAY. REASSESSMENT PER CHART. LAST BM WAS 2 DAYS AGO. GIVE PRN SENOKOT WITH COLACE. HAD LOOSE STOOL NOW. WILL CONTINUE TO MONITOR. WILL HAVE DIALYSIS TODAY. HAD 3L FLUID OFF. LAST ASSISTED WITH LAUDRY. CALLS APPROPRIATELY FOR ASSITANCE. FALL PRECAUTIONS IN PLACE. RESTING IN BED AT THIS TIME. WILL CONTINUE TO MONITOR.
--- NOTE | 2019-01-02 16:59 | NUR ---
joe spoke with juan luis aggarwal with hh. hh needing to know who pt pcp was. cm provided information Dr Turner. " we still waiting on him to verify he is her pcp then they are able to accept for hh services."jasen. will cont following as needed for dc needs.
[2019-01-02 19:49] VITALS: BP 107/63
--- NOTE | 2019-01-03 04:51 | NUR ---
PATIENT ALERT AND ORIENTED X4. UP TO BATHROOM WITH SBA. C/O PAIN, MED GIVEN WITH FAIR RESULTS. R TESSIO AND L AV SHUNT. HAS SOME L SIDED WKNESS. SLEPT OFF AND ON DURING NIGHT.
--- NOTE | 2019-01-03 07:36 | NUR ---
cm cont to follow up with pt on dcp for 01/04/19 on which family member will be picking her up tomorrow at dialysis for dc. " not my daughter she has plans, my granddaughter jessica will be picking me up. i am going home"/zaynab.
--- NOTE | 2019-01-03 08:26 | NUR ---
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
[2019-01-03 09:03] VITALS: BP 136/92
--- NOTE | 2019-01-03 10:09 | H ---
[facility] [place] [place] [address] HISTORY AND PHYSICAL Name: IZA SINCLAIR Room #: 509-P ADM IN M.R.#: [id number] Admission: 12/24/18 ������������������ Attend Phys: Pablo Vaz MD Discharge: ������������������ Date of : 50 Report #: [id number] THIS REPORT FOR: //name// CC: Pablo Mitchell DATE OF SERVICE: 12/24/2018 HISTORY AND PHYSICAL AND POST-ADMISSION PHYSICIAN EVALUATION HISTORY OF PRESENT ILLNESS: The patient is a 68-year-old -Romanian female who originally admitted to [facility] on 12/12/2018 with acute abdominal pain, and bloody stools. She was found to have an ischemic bowel and underwent exploratory laparotomy with lysis of adhesions and a small bowel resection on 12/12/2018. She does have end-stage renal disease, on hemodialysis and her initial creatinine was 11. She was noted to have a prolonged hospital stay. Her diet was advanced. Her hemoglobin dropped, GI team was consulted, GI bleed workup was negative. It was believed that it was possible at the recent surgery. Dialysis managed by Renal. She had a tagged RBC scan that was negative. She is noted to have medical complexity with generalized debilitation and has now been admitted for acute in-hospital inpatient rehabilitation. PAST MEDICAL HISTORY: Includes hypertension, end-stage renal disease, and dialysis. PAST SURGICAL HISTORY: Appendectomy, hysterectomy and tonsillectomy. MEDICATIONS: Please see the full medication listing. These include vitamins, herbals, and supplements. ALLERGIES: No known drug allergies. FAMILY HISTORY: Noncontributory. HABITS: No history of tobacco abuse. SOCIAL HISTORY: She lives in an apartment alone. No stairs. Did not utilize gait aids. Apparently, had a history of a "limp." She does have a cane and a walker, but did not utilize. She was independent with ADLs and IADLs. 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 REVIEW OF SYSTEMS: Did not offer any current complaints of chest pain, shortness of breath, or abdominal discomfort. PHYSICAL EXAMINATION: [facility] [address] [place] [address] HISTORY AND PHYSICAL Name: IZA SINCLAIR CHRIS Room #: 509-P [facility] IN M.R.#: [id number] Admission: 12/24/18 ������������������ Attend Phys: Pablo Vaz MD Discharge: ������������������ Date of : 50 Report #: [id number] GENERAL: A 68-year-old slender -Romanian female in no obvious distress. VITAL SIGNS: Temperature 97.7, pulse 88, respirations 18, blood pressure 166/100. HEENT: Facies are symmetric. CHEST: Sounded clear to auscultation. CARDIOVASCULAR: Regular rate and rhythm. ABDOMEN: Bowel sounds were positive. Nontender. GENITOURINARY AND RECTAL: Deferred. EXTREMITIES: She has functional range of motion of both upper extremities. Strength is grade 4-/5. DTRs are trace to 1. Lower extremities, no focal calf swelling, functional range of motion, strength is grade 4-/5. DTRs are trace to 1. Transfers are min assist. Gait is mod assist to 50 feet front-wheeled walker. There is a note of moderate comprehensive deficits. ASSESSMENT: A 68-year-old -Romanian female with the following problem list: 1. Medical complexity with generalized debilitation. 2. Ischemic small-bowel obstruction, status post exploratory laparotomy with lysis of adhesions and small bowel resection on 12/12/2018. 3. Upper gastrointestinal bleed with melena. 4. Gait instability. 5. Severe lumbar DJD with spinal stenosis. 6. Right lower extremity radiculopathy. 7. Noted memory and cognitive deficits. 8. End-stage renal disease, on hemodialysis. 9. Anemia. 10. Hypertension. 11. Protein-calorie malnutrition. PLAN: The patient is admitted for acute in-hospital inpatient rehabilitation. From a postadmission physician evaluation perspective, there are no relevant changes since the preadmission screening. See the above review of prior and current medical and functional conditions and comorbidities. Please see the patient's previous and current functional status. As far as risk of complications, the patient has multiple medical comorbidities as noted above. Initial plan of care involves the interdisciplinary acute inpatient rehabilitation program with the goal of maximizing her functional independence. Measurable functional goals would be for the patient to become modified independent with transfers, mobility, ADLs, so she can hopefully return back to her prior living situation. Prognosis is reasonably good with estimated length of stay probably at least 10 days to 2 weeks. Potential barriers would include her multiple medical comorbidities and decreased functional status. The patient meets diagnostic criteria for an acute in-hospital inpatient rehabilitation stay. She meets the medical necessity criteria. She does have the tolerance for therapies and has appropriate discharge goals back to the home [address] [address] HISTORY AND PHYSICAL Name: IZA SINCLAIR Room #: 509-P [facility] IN M.R.#: [id number] Admission: 12/24/18 ������������������ Attend Phys: Pablo Vaz MD Discharge: ������������������ Date of : 50 Report #: [id number] setting. We will have the multiple sap pp consultant physicians continue to follow while she is on the rehab douglas. ��������������������������������������������� <ELECTRONICALLY SIGNED> ���������������������������������������� By: Pablo Vaz MD ��������������������������������������������� 01/03/19 1009 [id number] Pablo Vaz MD /nt
--- NOTE | 2019-01-03 10:09 | PLAN ---
[facility] [address] [address] REHAB UNIT PLAN OF CARE Name: IZA SINCLAIR Room #: 509-P ADM IN M.R.#: [id number] Admission: 12/24/18 ������������������ Attend Phys: Pablo Vaz MD Discharge: ������������������ Date of : 50 Report #: [id number] THIS REPORT FOR: //name// CC: Pablo Mitchell DATE OF SERVICE: 12/26/2018 PROGRESS NOTE AND OVERALL PLAN OF CARE SUBJECTIVE: The patient is seen back today in followup. She is in no distress. Temperature 37, pulse 86, respirations 14, blood pressure 150/82. She is working in therapies with transfers, min assist. Gait min assist 140 feet front-wheeled walker. In occupational therapy, upper body dressing is setup, lower body dressing is min assist. Her abdominal incision appears to be intact. Bowel sounds are positive. She is being followed closely by Nephrology. She was seen by Surgery as well as Internal Medicine. Being monitored regarding anemia, last hemoglobin was 7.7. ASSESSMENT: 1. Medical complexity with generalized debilitation. 2. Ischemic small-bowel obstruction, status post exploratory laparotomy with lysis of adhesions and small bowel resection, 12/12/2018. 3. Upper gastrointestinal bleed with melena. 4. Gait instability. 5. Severe lumbar degenerative joint disease with spinal stenosis. 6. Right lower extremity radiculopathy. 7. End-stage renal disease, on hemodialysis. 8. Anemia. 9. Hypertension. PLAN: The overall plan of care is based on the preadmission screen, post-admission physician evaluation and information garnered from therapy assessments. 1. Estimated length of stay is at least 10 days to 2 weeks. 2. Medical prognosis is reasonably good. 3. Anticipated interventions includes the interdisciplinary acute inpatient rehabilitation program. 4. Anticipated functional outcomes would be for the patient to become modified independent with basic mobility and ADL issues, so that she can return back to the home setting. She is also being seen by speech therapy with some noted cognitive deficits. Noted to have moderate cognitive deficits, moderate memory deficits. 5. Discharge destination. She does live in an apartment alone, has an involved daughter, did not drive. 6. Expected therapy by discipline includes PT, OT and speech 1 hour per day [address] [address] REHAB UNIT PLAN OF CARE Name: IZA SINCLAIR CHRIS Room #: 509-P ADM IN [facility].#: [id number] Admission: 12/24/18 ������������������ Attend Phys: Pablo Vaz MD Discharge: ������������������ Date of : 50 Report #: [id number] each five days a week throughout the duration of the acute inpatient rehabilitation stay. ��������������������������������������������� <ELECTRONICALLY SIGNED> ���������������������������������������� By: Pablo Vaz MD ��������������������������������������������� 01/03/19 1009 [id number] Pablo Vaz MD /PMT
[2019-01-03] MEDS ORDERED: NORCO 7.5-3251 EACH PO (11:00)
[2019-01-03] MEDS ORDERED: COLACE100 MG PO (11:02)
[2019-01-03] MEDS ORDERED: TRIPHROCAPS SOFT1 MG PO (11:02)
[2019-01-03] MEDS ORDERED: GABAPENTIN 100100 MG PO (11:02)
[2019-01-03] MEDS ORDERED: PROCRIT20000 UNIT SUBQ (11:02)
[2019-01-03] MEDS ORDERED: TYLENOL325 MG PO (11:02)
[2019-01-03] MEDS ORDERED: PROTONIX40 M2 PO (11:02)
[2019-01-03] MEDS ORDERED: MELATONIN5 M1 PO (11:02)
[2019-01-03] MEDS ORDERED: NORVASC5 MG PO ×2 (11:02→11:05)
--- NOTE | 2019-01-03 13:15 | NUR ---
DISCHARGE PLANNING. PER UNIT CM, ANTICIPATED DISCHARGE IS PLANNED FOR TOMORROW. PATIENT TO DISCHARGE HOME WITH HOME HEALTH SERVICES. CALL PLACED TO [facility] TO FOLLOW UP ON REFERRAL FAXED TO THEM. SPOKE WITH CECI WHO STATES THAT PT REFERRAL WAS RECEIVED AND [facility] IS ACCEPTING OF PATIENT AT DISCHARGE. CECI STATES SHE SPOKE WITH DR MARTINEZ'S OFFICE, AND DR MARTINEZ WILL FOLLOW PATIENT LONG FACE TO FACE IS COMPLETED AT TIME OF DISCHARGE. CECI ALSO REQUESTS THAT STAFF PLEASE NOTIFY [facility] INTAKE ONCE DISCHARGE ORDERS HAVE BEEN COMPLETED AND FAXED TO THEM. THANK YOU [facility] INTAKE CONTACT NUMBER IS [phone] FAX [phone] UPDATED CLINICAL INFORMATION FAXED TO PATIENTS OUTPATIENT DIALYSIS CLINIC, [facility]. CALL PLACED TO [facility], SPOKE WITH EDMUND, CHARGE NURSE TO NOTIFY OF PATIENTS DISCHARGE AND TO VERIFY CLINICAL INFORMATION RECEIVED. EDMUND TO NOTIFY DIALYSIS TEAM. UNIT CM AWARE.
--- NOTE | 2019-01-03 13:18 | NUR ---
pt to dc home with [facility] (pt, ot, st, nursing, sw and bath aid). pt smith lopez is going to pick her up and take her home after dialysis tomorrow 01/04/19. day of dc bedside nurse to [facility] [employer] # [phone], phone # [phone].
[2019-01-03 13:21] VITALS: BP 136/92
[2019-01-03 19:58] VITALS: BP 141/77
--- NOTE | 2019-01-04 02:29 | NUR ---
PT ALERT AND ORIENTED X 4. AMB TO BR WITH WALKER AND ASSIST X 1 WITHOUT DIFFICULTY. PT C/O PAIN IN HER RECTUM FROM HEMORRHOIDS. HYDROCODONE GIVEN AT HS. MELATONIN ALSO GIVEN FOR SLEEP. BED ALARM ON FOR SAFETY. PT APPEARS TO BE SLEEPING ON HOURLY ROUNDS.
[2019-01-04 07:30] VITALS: BP 117/107
[2019-01-04 13:52] VITALS: BP 136/92
[2019-01-04 16:32] VITALS: BP 118/72
--- NOTE | 2019-01-04 19:25 | NUR ---
ASSUMED CARE AT APPROX 0715. PATIENT A/O X4. DENIES PAIN. UP X1 ASSIST GB AND WALKER. DIALYZED THIS AM. VSS UPON RETURN TO UNIT. HOSPITALIST ROUNDED ON PATIENT TO REVIEW MEDICATIONS AND PROVIDE SCRIPT FOR PAIN MED. DISCHARGE ORDERS SENT TO HOME HEALTH. D/C SUMMARY AND MEDS REVIEWED WITH PATIENT AND HER GRANDAUGHTERS. DISCHARGE EDUCATION PACKET AND SCRIPTS PROVIDED. STATED THEY HAD NO FURTHER QUESTIONS. IV TO RIGHT FOREARM DC'D. PATIENT ESCORTED DOWN TO THEIR CAR BY MATRIX WORKER. LEFT UNIT APPROX 1720.
== END 2019-01-04 17:21 | disposition home health service (06) | DRG 947 ==
PROVIDERS: Internal Medicine Gastroenterology; Internal Medicine Nephrology; Nurse Practitioner; Nurse Practitioner Family; Specialist; ADMIT Physical Medicine & Rehabilitation
PROC: 5A1D70Z Performance of Urinary Filtration, Intermittent, Less than 6 Hours Per Day (ICD-10-PCS; principal; 2018-12-26)
PROC: 5A1D70Z Performance of Urinary Filtration, Intermittent, Less than 6 Hours Per Day (ICD-10-PCS; 2018-12-28)
PROC: 5A1D70Z Performance of Urinary Filtration, Intermittent, Less than 6 Hours Per Day (ICD-10-PCS; 2018-12-31)
PROC: 5A1D70Z Performance of Urinary Filtration, Intermittent, Less than 6 Hours Per Day (ICD-10-PCS; 2019-01-02)
PROC: 5A1D70Z Performance of Urinary Filtration, Intermittent, Less than 6 Hours Per Day (ICD-10-PCS; 2019-01-04)
DX: R53.81 Other malaise (principal); N18.6 End stage renal disease; K56.609 Unspecified intestinal obstruction, unspecified as to partial versus complete obstruction; K92.2 Gastrointestinal hemorrhage, unspecified; I12.0 Hypertensive chronic kidney disease with stage 5 chronic kidney disease or end stage renal disease; E46 Unspecified protein-calorie malnutrition; D62 Acute posthemorrhagic anemia; M48.061 Spinal stenosis, lumbar region without neurogenic claudication; R26.9 Unspecified abnormalities of gait and mobility; M47.26 Other spondylosis with radiculopathy, lumbar region; F01.50 Vascular dementia, unspecified severity, without behavioral disturbance, psychotic disturbance, mood disturbance, and anxiety; E83.42 Hypomagnesemia; Z99.2 Dependence on renal dialysis; Z90.49 Acquired absence of other specified parts of digestive tract; Z90.710 Acquired absence of both cervix and uterus; Z68.22 Body mass index [BMI] 22.0-22.9, adult
CPT/HCPCS: 10112; 32100

== ENCOUNTER 2019-04-10 08:33 | Inpatient (IN) | payer OTHER ==
[~2019-04-10] VITALS: Ht 167.6 cm; Wt 66.0 kg
[~2019-04-10 08:33] MED LIST changes: +COLACE100 MG PO; +MELATONIN5 M1 PO; +NORCO 7.5-3251 EACH PO; +TRIPHROCAPS SOFT1 MG PO; +TYLENOL325 MG PO
[2019-04-10 08:34] VITALS: BP 224/118
[2019-04-10 08:59] LABS: ABSOLUTE NEUTROPHILS 4.8 thou/uL (1.4-8.2); BASOPHILS 0.7 % (0.0-2.0); EOSINOPHILS 3.7 % (0.0-3.0); HEMATOCRIT 37.8 % (37.0-47.0); HEMOGLOBIN 11.9 gm/dL (12.0-15.0); MCH 23.9 pg (26.0-34.0); MCHC 31.5 g/dL (28.0-37.0); MONOCYTES 6.6 % (1.0-8.0); PLATELET COUNT 221 thou/uL (150-400); RBC 4.98 mil/uL (4.20-5.00); RDW 21.2 % (10.5-14.5); WBC 5.9 thou/uL (4.0-11.0)
[2019-04-10 09:32] LABS: ANISOCYTOSIS 2+; PLATELET ESTIMATE NORMAL
[2019-04-10 11:52] LABS: ALBUMIN 3.7 g/dL (3.4-5.0); CALCIUM 9.7 mg/dL (8.5-10.1); CREATININE 15.3 mg/dL (0.6-1.0); TOTAL BILIRUBIN 0.6 mg/dL (<0.1-1.0); TOTAL PROTEIN 7.2 g/dL (6.4-8.2); TROPONIN-I 0.23 ng/mL (<0.06)
[2019-04-10 11:53] LABS: POTASSIUM 7.4 mmol/L (3.5-5.1)
[2019-04-10 16:32] VITALS: BP 152/92
--- NOTE | 2019-04-10 17:36 | NUR ---
REPORT CALLED TO FLOOR. DIALYSIS NURSE REPORTS 1.5HR LEFT OF TREATMENT.
[2019-04-10 18:50] LABS: CALCIUM 9.1 mg/dL (8.5-10.1)
[2019-04-10 18:51] LABS: CREATININE 5.2 mg/dL (0.6-1.0); POTASSIUM 3.2 mmol/L (3.5-5.1)
[2019-04-10 19:30] VITALS: BP 166/99
[2019-04-10 20:00] VITALS: BP 179/108
[2019-04-11] VITALS (7 sets, daily range): BP systolic 115–192; BP diastolic 68–116
--- NOTE | 2019-04-11 03:53 | NUR ---
ASSUMED CARE AT START OF SHIFT PT CAME FROM DIALYSIS , PT ASSESSMENT AND ADMISSION DATA BASE COMPLETED, PT C/O HEADACHE AND NAUSEA , DATABASE SPECIALIST NOTIFED AND ORDERS RECIEVED. PT BP ALSO ELEVATED AND DATABASE SPECIALIST NOTIFIED ORDER RECIEVED FOR HYDRAZLINE IV BP WNL ONE HOUR AFTER MEDICATION GIVEN. PT CONINTUE TO C/O OF HEADACHE TYLENOL AND MORPHINE GIVEN FOR COMFORT. DEVELOPMENT CHEMIST SHOWS NSR. WILL CONITUE TO MONITOR AND REPORT ABNORMAL FINDINGS AND CHANGES.
[2019-04-11 05:59] LABS: HEMATOCRIT 39.3 % (37.0-47.0); HEMOGLOBIN 12.4 gm/dL (12.0-15.0); MCH 24.2 pg (26.0-34.0); MCHC 31.5 g/dL (28.0-37.0); MCV 76.9 fL (80.0-100.0); RBC 5.11 mil/uL (4.20-5.00); RDW 20.3 % (10.5-14.5); WBC 4.6 thou/uL (4.0-11.0)
[2019-04-11 06:05] LABS: ALBUMIN 3.7 g/dL (3.4-5.0); CALCIUM 8.9 mg/dL (8.5-10.1); PHOSPHORUS 4.3 mg/dL (2.5-4.9)
[2019-04-11 06:08] LABS: CREATININE 7.4 mg/dL (0.6-1.0); POTASSIUM 4.5 mmol/L (3.5-5.1)
--- NOTE | 2019-04-11 14:05 | NUR ---
ASSESSMENT: CM REVIEWED CHART AND MET WITH PATIENT AT THE BEDSIDE. PT WAS ADMITTED WITH HYPERKALEMIA. PT REPORTS THAT SHE LIVES IN AN APT ALONE. PT REPORTS SHE STILL WORKS AND IS VERY INDEPENDENT. PT REPORTS SHE HAS AN ELEVATOR TO GET TO HER APT. PT REPORTS AMBULATING INDEPENDENTLY. PT REPORTS SHE HAS A GRAB BAR IN THE SHOWER. PT STATES SHE IS INDEPENDENT WITH ADLS. PT GETS DIALYSIS MWF AT [facility] [phone], CM CONTACTED THEM TO NOTIFY OF PATIENTS ADMISSION AND FAXED INITIAL INFORMATION AND THEY REQUEST WHEN PATIENT DISCHARGES WE FAX PAPERWORK TO THEIR FAX:[phone]. PLANS ARE FOR PATIENT TO LIKELY DISCHARGE HOME THIS WEEKENED WITH NO NEEDS.
--- NOTE | 2019-04-11 14:29 | EKG ---
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
--- NOTE | 2019-04-11 14:33 | EKG ---
[address] [email or web address] [address] ELECTROCARDIOGRAM REPORT Name: IZA SINCLAIR Room #: 362-P ADM IN M.R.#: [id number] Admission: 04/10/19 Attend Phys: Micky Sethi MD Discharge: Date of : 50 Report #: [id number] THIS REPORT FOR: //name// [facility] ED Test Date: 2019-04-10 Test Time: 11:21:23 Pat Name: IZA SINCLAIR Department: Room: 362 Gender: F Escrow Representative: SRAVANI : 1950 Requested By: Angelica Boogie Order Number: [id number] MD: Ramu Causey Measurements Intervals [place] Rate: 67 P: 37 CO: 181 QRS: -35 QRSD: 108 T: 135 QT: 414 QTc: 437 Interpretive Statements Sinus rhythm Atrial premature complexes LVH with secondary repolarization abnormality Compared to ECG 08/12/2018 10:15:43 Atrial premature complex(es) now present Early repolarization now present Electronically Signed On 04-11-2019 14:33:34 CDT by Ramu Causey [email or web address] <ELECTRONICALLY SIGNED> By: Ramu Causey MD 04/11/19 1433 1121 112 Ramu Causey MD /EPI
--- NOTE | 2019-04-11 19:55 | NUR ---
Assumed pt care this am, pt has been nauseated for most of the day, managed with medication. Pt went on dialysis early this am but only completed 50% of the prescribed time, 600cc was puled. per the dialysis nurse pt complained of pain and discomfort on the dialysis site. Pt complainedo f a headached and this was managed with medication. Placed the pt on a clear liquid diet nato nausea and vomiting resolve. BP was elevated several times during the day treated with hydralazine, pt refused to take medications on time. VS monitored, medications given POC and as needed. POC followed ,endorsed to the night nurse.
--- NOTE | 2019-04-12 02:09 | NUR ---
ASSESSMENT: PT REMAIN ALERT AND ORIENT TIMES FOUR. DENIES PAIN, SOB AND VOMITING. DOES C/O FEELING NAUSEA, BLOOD PRESSURE WAS ELEVATED. HYDRALAZINE GIVEN LATE ON DAYSHIFT, BLOOD PRESSURE TRENDING DOWN. NO EMEMSIS THUS FAR. LEFT UPPER ARM FISTULA + THIRLL/BRUIT. RIGHT UPPER ARM (OLD) FISTULA NOTED. SLOE PROGRESS TOWARDS DC GOALS, WILL CONTINUE TO MONITOR.
[2019-04-12 05:15] VITALS: BP 154/107
--- NOTE | 2019-04-12 07:40 | HC ---
[facility] [place] [address] CONSULTATION Name: IZA SINCLAIR Room #: 362-P [facility] IN M.R.#: [id number] Admission: 04/10/19 Attend Phys: Micky Sethi MD Discharge: Date of : 50 Report #: [id number] THIS REPORT FOR: //name// CC: Torin Sethi REASON FOR THE CONSULTATION: End-stage renal disease. REASON FOR THE PRESENTATION: Shortness of breath. HISTORY OF PRESENT ILLNESS: A 68-year-old with past medical history of end-stage renal disease and hypertension, maintained on hemodialysis on Sunday, Sunday and Sunday. She missed her dialysis on Sunday and presented yesterday having some shortness of breath. She was found to be in acute hyperkalemia and required emergent dialysis. The patient has had a very prolonged hospital stay couple of months ago for significant GI bleeding. Unfortunately, she continues to have issues with noncompliance and not showing for her dialysis treatment, resulting in significant hyperkalemia. PAST MEDICAL HISTORY: 1. Hypertension. 2. Hysterectomy. 3. End-stage renal disease, maintained on hemodialysis every Sunday, Sunday and Sunday. 4. Clotted AV fistula. 5. Secondary hyperparathyroidism. 6. Small bowel issues. 7. Gastric ulcer. MEDICATIONS: 1. Folic acid. 2. Gabapentin. 3. Amlodipine. ALLERGIES: None. SOCIAL HISTORY: She denies drug or alcohol abuse. She continues to smoke. REVIEW OF SYSTEMS: GENERAL: Significant for weakness. CARDIOVASCULAR: No chest pain. PULMONARY: Significant for shortness of breath. GASTROINTESTINAL: As per the history of present illness. GENITOURINARY: She continues to have issues with hemorrhoids. MUSCULOSKELETAL: Back pain and myalgias. SKIN: No rash or ulcerations. NEUROLOGICAL: No syncope. [facility] [address] [place] [address] CONSULTATION Name: IZA SINCLAIR Room #: 362-P [facility] IN [facility].#: [id number] Admission: 04/10/19 Attend Phys: Micky Sethi MD Discharge: Date of : 50 Report #: [id number] ALLERGIES: None. PHYSICAL EXAMINATION: VITAL SIGNS: Blood pressure is 140/100. HEAD AND NECK: No jugular venous distention. CHEST: Decreased air entry bilaterally. CARDIOVASCULAR: No rub detected. ABDOMEN: Soft, nontender. EXTREMITIES: Lower extremities: Left AV fistula with no issues. LABORATORY VALUES: Reviewed. Potassium is now down to 4.5, BUN is 36, creatinine 7.4. Sodium is 135. Hemoglobin is 12.4. Chest x-ray suggestive of pulmonary edema. IMPRESSION AND PLAN: 1. Acute hyperkalemia. 2. End-stage renal disease. 3. Pulmonary edema. 4. We will arrange for the patient to have yet another dialysis treatment today. 5. Counseled about compliance. 6. Resume her outpatient medications. 7. Seems to be stable from the GI perspective with no evidence of GI bleeding. <ELECTRONICALLY SIGNED> By: Arlette Nascimento MD 04/12/19 0740 0740 1026 Arlette Nascimento MD /nt
[2019-04-12 07:51] LABS: HEMATOCRIT 37.6 % (37.0-47.0); HEMOGLOBIN 11.7 gm/dL (12.0-15.0); MCH 23.8 pg (26.0-34.0); MCHC 31.1 g/dL (28.0-37.0); MCV 76.3 fL (80.0-100.0); RBC 4.92 mil/uL (4.20-5.00); RDW 20.5 % (10.5-14.5); WBC 4.7 thou/uL (4.0-11.0)
[2019-04-12 08:08] LABS: ALBUMIN 3.2 g/dL (3.4-5.0); CALCIUM 8.6 mg/dL (8.5-10.1); CREATININE 7.3 mg/dL (0.6-1.0); PHOSPHORUS 4.9 mg/dL (2.5-4.9); POTASSIUM 4.5 mmol/L (3.5-5.1)
[2019-04-12 11:30] VITALS: BP 142/90
[2019-04-12 15:44] VITALS: BP 142/90
[2019-04-12 15:52] VITALS: BP 147/94
--- NOTE | 2019-04-12 16:33 | NUR ---
PATIENT WILL BE DISCHARGED HOME AT THIS TIME. RESPIRATIONS ARE EVEN NON LABORED. SHE DENIES PAIN. DAUGHTER WILL BE HERE TO TAKE HER HOME.
== END 2019-04-12 16:53 | disposition home or self-care (01) | DRG 640 ==
LOC: ER 08:33 → EROBS 12:29 → 3W 12:29
PROVIDERS: Emergency Medicine; ADMIT Hospitalist
PROC: 5A1D70Z Performance of Urinary Filtration, Intermittent, Less than 6 Hours Per Day (ICD-10-PCS; principal; 2019-04-10)
PROC: 5A1D70Z Performance of Urinary Filtration, Intermittent, Less than 6 Hours Per Day (ICD-10-PCS; 2019-04-11)
DX: E87.5 Hyperkalemia (principal); N18.6 End stage renal disease; J18.9 Pneumonia, unspecified organism; I12.0 Hypertensive chronic kidney disease with stage 5 chronic kidney disease or end stage renal disease; N25.81 Secondary hyperparathyroidism of renal origin; E87.70 Fluid overload, unspecified; E87.2 Acidosis; K21.9 Gastro-esophageal reflux disease without esophagitis; M48.00 Spinal stenosis, site unspecified; Z90.49 Acquired absence of other specified parts of digestive tract; Z90.711 Acquired absence of uterus with remaining cervical stump; Z87.891 Personal history of nicotine dependence; Z99.2 Dependence on renal dialysis; Z79.82 Long term (current) use of aspirin; Z79.899 Other long term (current) drug therapy
CPT/HCPCS: 10879; 32100

== ENCOUNTER → 2019-11-20 | Outpatient (CLI) | payer OTHER | LOC: ULTRA 08:56 | DX: R60.0 Localized edema (principal) ==

== ENCOUNTER 2020-08-17 11:25 | Inpatient (IN) | payer OTHER ==
[~2020-08-17] VITALS: Ht 165.1 cm; Wt 60.0 kg
--- NOTE | ~2020-08-17 | HC ---
[facility] [place] [address] CONSULTATION Name: IZA SINCLAIR Room #: 352-P ADM IN M.R.#: [id number] Admission: 08/17/20 Attend Phys: Kevin Avendaño Discharge: Date of : 50 Report #: [id number] THIS REPORT FOR: cc: Torin Mitchell James A. DO Al-Absi, Ahmed I. MD ~ RENAL CONSULTATION REASON FOR CONSULTATION: End-stage renal disease. REASON FOR PRESENTATION: Worsening shortness of breath. HISTORY OF PRESENT ILLNESS: This is a very well-known patient to me. She is a 69-year-old who was diagnosed to have COVID-19 about 10 days ago. She managed herself at home. She continued to have worsening symptoms in the form of cough and diarrhea. She presented to the Emergency Room for further evaluation and was found to have an O2 sat of 86%. She was admitted for further evaluation and management of her COVID-19 infection. She denies any fever or chills. She has lost her appetite. From the renal perspective, the patient is known to have end-stage renal disease and maintained on hemodialysis every Sunday, Sunday and Sunday. She is due to have hemodialysis today. MEDICATIONS: 1. Lisinopril. 2. Gabapentin. 3. Carvedilol. 4. Levofloxacin. 5. Dexamethasone. 6. Hydrocodone. SOCIAL HISTORY: She denies drug or alcohol abuse. She lives independently. FAMILY HISTORY: Significant for hypertension and diabetes mellitus. PAST MEDICAL AND SURGICAL HISTORY: 1. End-stage renal disease. 2. Multiple AV dialysis accesses. 3. Hemodialysis every Sunday, Sunday and Sunday. 4. Remote history of ischemic colitis. 5. History of peptic ulcer disease. 6. Hypertension. REVIEW OF SYSTEMS: GENERAL: Significant for fever and weakness. CARDIOVASCULAR: Significant for shortness of breath. PULMONARY: No cough or hemoptysis, but significant for shortness of breath. [facility] [address] [place] [address] CONSULTATION Name: IZA SINCLAIR CHRIS Room #: 352-P [facility] IN M.R.#: [id number] Admission: 08/17/20 Attend Phys: Kevin Avendaño Discharge: Date of : 50 Report #: [id number] This was also associated with dyspnea on exertion. GASTROINTESTINAL: No nausea or vomiting, but she lost her appetite. MUSCULOSKELETAL: Diffuse myalgias. PHYSICAL EXAMINATION: VITAL SIGNS: Temperature 36.8, blood pressure 104/98, pulse rate 68. HEAD AND NECK: No jugular venous distention. CHEST: No crackles. CARDIOVASCULAR: No rub. ABDOMEN: Soft, nontender. EXTREMITIES: Lower extremities, no edema. Upper extremities, there is a left-sided upper extremity AV fistula. LABORATORY DATA: Hemoglobin is 11.1. Sodium is 133, potassium is 5.8, BUN is 73, creatinine is 13.7. Chest x-ray is consistent with bilateral pneumonitis. ASSESSMENT/IMPRESSION/PLAN: 1. End-stage renal disease, hemodialysis today. 2. COVID-19 active infection, now initiated on Decadron and remdesivir, followed by ID. 3. Ivermectin was also added. 4. Resume her usual home medications. 5. We will continue to follow during her hospital stay. By: [phone] Arlette Nascimento MD /nt
[2020-08-17 11:25] VITALS: BP 195/127
--- NOTE | 2020-08-17 11:57 | NUR ---
COVID TEST DONE, PT WOULD NOT ALLOW A PROPER NASOPHARYNGEAL SWAB. STATES HER NOSE IS "TOO SENSATIVE"
[2020-08-17 12:20] LABS: ABSOLUTE NEUTROPHILS 2.7 thou/uL (1.4-8.2); BASOPHILS 0.9 % (0.0-2.0); EOSINOPHILS 0.1 % (0.0-3.0); HEMATOCRIT 35.5 % (37.0-47.0); HEMOGLOBIN 11.1 gm/dL (12.0-15.0); MCH 27.2 pg (26.0-34.0); MCHC 31.3 g/dL (28.0-37.0); MCV 87.1 fL (80.0-100.0); MONOCYTES 5.2 % (1.0-8.0); PLATELET COUNT 179 thou/uL (150-400); POLYS 85.8 % (36.0-66.0); RBC 4.08 mil/uL (4.20-5.00); WBC 3.2 thou/uL (4.0-11.0)
[2020-08-17 12:29] LABS: CALCIUM 9.1 mg/dL (8.5-10.1); CREATININE 13.7 mg/dL (0.6-1.0); POTASSIUM 5.8 mmol/L (3.5-5.1)
[2020-08-17 12:35] LABS: ALBUMIN 3.4 g/dL (3.4-5.0); TOTAL BILIRUBIN 0.5 mg/dL (0.2-1.0); TOTAL PROTEIN 7.6 g/dL (6.4-8.2)
--- NOTE | 2020-08-17 12:46 | EKG ---
[place] [address] [facility] [place] [address] ELECTROCARDIOGRAM REPORT Name: IZA SINCLAIR Room #: [facility]..#: [id number] Admission: Attend Phys: Discharge: Date of : 50 Report #: [id number] [facility] ED Test Date: 2020-08-17 Test Time: 11:57:53 Pat Name: IZA SINCLAIR Department: Room: Gender: F Oracle Specialist: SEFERINO : 1950 Requested By: Pablo Feliciano Order Number: [id number] MD: Leroy Liu Measurements Intervals [place] Rate: 89 P: 54 NE: 146 QRS: -41 QRSD: 103 T: 117 QT: 362 QTc: 441 Interpretive Statements Sinus rhythm RSR' in V1 or V2, right VCD or RVH LVH with secondary repolarization abnormality Compared to ECG 04/10/2019 11:21:23 Right ventricular hypertrophy now present RSR' in V1 or V2 now present Atrial premature complex(es) no longer present Electronically Signed On 08-17-2020 12:46:39 ARTS MANAGER by Leroy Liu [email or web address] <ELECTRONICALLY SIGNED> By: Leroy Liu MD, [facility] 08/17/20 1246 1157 1157 Leroy Liu MD, [facility] /EPI
--- NOTE | 2020-08-17 13:52 | NUR ---
IV TEAM'S IV THAT THEY PLACED NO LONGER WORKS. WILL NOTIFY THEM
--- NOTE | 2020-08-17 14:18 | NUR ---
69 year old female presenting to the ED on 08-17-20 via EMS coming from home with complaints of worsening SOB since yesterday. Pt tested positive for COVID ~ 9 days ago. She notes to additional symptoms including cough and diarrhea. Pt is a renal dialysis pt on Sunday, Sunday and Sunday. She did undergo dialysis yesterday; 08-16-20. The patients COVID Antigen is Positive. The patient has been admitted to hospitalist Dr. Avendaño for Hypoxic Respiratory failure, COVID Pneumonitis, Weakness, ESRD and HTN. Per the medical record and assessment in the ED patient is found to be A&0 x4 with a dialysis shunt in the right arm. Patient last here and was using [facility] at [phone] on 04-24. CM will follow for discharge needs as patient does live at home and lists her daughter Danyell Guzmán at [phone] as next of kin and other daughter Gifty Pettit at [phone] as other person of notification.
[2020-08-17 21:46] VITALS: BP 151/100
--- NOTE | 2020-08-17 21:47 | NUR ---
HANDOFF SENT TO 3W
[2020-08-17 22:23] VITALS: BP 157/100
[2020-08-17 23:12] VITALS: BP 146/89
--- NOTE | 2020-08-18 00:50 | NUR ---
CONTNUES ON 2 LITERS N/C, O2 SATS IN THE MID 90'S. SHE HAS BEEN HAVING DIARHEA AT HOME. SHE ARRIVED ON THE UNIT AT 2250. 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 SHE IS VERY WEAK. SHE LEFT HER MEDICATION AT HOME.
[2020-08-18 05:46] VITALS: BP 134/93
[2020-08-18 06:49] LABS: ALBUMIN 2.9 g/dL (3.4-5.0); DIRECT BILIRUBIN 0.1 mg/dL (<0.1-0.2); TOTAL BILIRUBIN 0.4 mg/dL (0.2-1.0); TOTAL PROTEIN 6.9 g/dL (6.4-8.2)
[2020-08-18 07:30] VITALS: BP 104/98
--- NOTE | 2020-08-18 11:10 | HC ---
[facility] [place] [address] CONSULTATION Name: IZA SINCLAIR Room #: [facility]- ADM IN M.R.#: [id number] Admission: 08/17/20 Attend Phys: Kevin Avendaño Discharge: Date of : 50 Report #: [id number] THIS REPORT FOR: cc: Torin Mitchell James A. DO Barry, Joseph W. MD ~ DATE OF SERVICE: 08/17/2020 INFECTIOUS DISEASE CONSULTATION ATTENDING PHYSICIAN: Dr. Avendaño. REASON FOR EVALUATION: COVID-19, complicated by pneumonitis and respiratory failure. HISTORY OF PRESENT ILLNESS: Chart reviewed, patient examined. This is a 69-year-old woman with fairly extensive medical history, has end-stage renal disease, on dialysis, apparently underwent testing for COVID roughly 9 days ago, has been in quarantine, had progressive cough and worsening dyspnea. She notes she is often on 2 liters of oxygen at dialysis. She additionally has diarrhea, although on questioning, she states a year ago, she had some sort of small bowel ischemia, required surgery, and she has had diarrhea more often since that time. She is generally lucid. She is unaware of any fevers or chills. She notes her appetite has been diminished. She has experienced some nausea. Initial chest x-ray showed patchy medial bibasilar atelectasis and pneumonitis. Lactic acid 1.3. She was empirically started on therapy with levofloxacin and dexamethasone. She is lucid. ALLERGIES: None known. MEDICATIONS: Currently include Epogen, levofloxacin, dexamethasone, pantoprazole, gabapentin, lisinopril, carvedilol, insulin lispro sliding scale, and hydrocodone. PAST MEDICAL HISTORY: End-stage renal disease, on hemodialysis; chronic anemia, previous history of ischemic bowel, post-resection, reflux, history of gastric ulcer, GI hemorrhage, and hypertension. SOCIAL HISTORY: Nonsmoker, no ethanol, no illicit drug use. FAMILY HISTORY: Noncontributory. REVIEW OF SYSTEMS: Otherwise unremarkable 10-point review of systems. PHYSICAL EXAMINATION: [facility] [address] [place] [address] CONSULTATION Name: IZA SINCLAIR CHRIS Room #: 352-P [facility] IN M.R.#: [id number] Admission: 08/17/20 Attend Phys: Kevin Pierre Reneeluciano Discharge: Date of : 50 Report #: [id number] GENERAL: She appears chronically ill and undernourished, is pleasant and cooperative, in moderate distress. VITAL SIGNS: Temperature 98, pulse 81, respirations 16, and blood pressure 173/109. SKIN: Warm and dry, no rashes. HEENT: Normocephalic. Extraocular muscles intact. Nasal cannula in place. NECK: Supple. LUNGS: Few scattered coarse breath sounds. HEART: Regular. I do not appreciate a murmur. ABDOMEN: Soft, nontender. There are no peritoneal signs. GENITOURINARY AND RECTAL: Deferred. LABORATORY DATA: Lactic acid 1.3. Electrolytes: Sodium 132, potassium 5.8, chloride 95, bicarbonate is 26, anion gap of 11, BUN and creatinine 73 and 13.7, glucose of 94, AST of 23, ALT of 22, total protein of 7.6, and albumin of 3.4. Chest x-ray: Patchy medial bibasilar atelectasis, pneumonitis, and cardiomegaly without evidence of failure. CBC: White count 3.2, H and H 11.1 and 35.5, platelets of 179. ASSESSMENT: COVID-19 infection in the setting of end-stage renal disease, on dialysis, complicated by pneumonitis and respiratory failure. I think it is within the window. We could initiate therapy with remdesivir, add ivermectin and vitamins as well. She has received empiric therapy with Levaquin. We will adjust that dosing given her renal insufficiency. She remains tenuous at this point. Monitor expectantly. Would be concerned about deteriorating status before she improves. <ELECTRONICALLY SIGNED> By: Adeel Salguero MD 08/18/20 1110 1405 1422 Adeel Salguero MD /nt
[2020-08-18 15:25] VITALS: BP 108/72
--- NOTE | 2020-08-18 16:07 | NUR ---
INITIAL ASSESSMENT: SW received referral. SW reviewed chart and spoke with nursing and attending physician. Pt was admitted from home due to COVID pneumonia. Pt placed in Enhanced Isolation. Pt had first COVID test on 08/08. Pt is afebrile and on 2L of O2. Pt is on IV abx and IV steroids. Pt is on Remdesivir and Ivermectin. SW spoke with pt via phone. Introduced role of SW. Pt is alert/orientated x 4. Pt reports she lives at home alone. Prior to admission, pt was independent with ADLs. Pt has a walker. Pt states she has fallen recently. Pt goes to [facility] for dialysis. [employer] provides transportation. Pt has been on 5N in the past for rehab and has used [facility]. Pt's PCP is Dr. Mitchell. SW left voice message at [facility]. SW is following to assist as needed with discharge planning.
--- NOTE | 2020-08-18 18:37 | NUR ---
PATIENT COMPLAINED OF PAIN TO RECTUM DUE TO HEMORRHOIDS. NEW ORDERS FOR CREAM WHICH WAS APPLIED. IT WAS EFFECTIVE IN CONTOLLING THE PAIN. SHE IS ALERT ORIENTED X4. HAD DIALYSIS TODAY. WILL CONT WITH PLAN OF CARE.
[2020-08-18 19:19] VITALS: BP 108/77
--- NOTE | 2020-08-18 22:25 | NUR ---
PT RESTING IN BED. LUNGS WITH WHEEZES. PT TALKATIVE AND NOT SOA WHEN TALKING. REJ INTACT, LEFTY FISTUALA INTACT. PT PROVIDED HS SNACK PER HER REQUEST. BED ALARM ON.
[2020-08-19 04:05] VITALS: BP 124/78
[2020-08-19 06:23] LABS: ALBUMIN 2.8 g/dL (3.4-5.0); DIRECT BILIRUBIN 0.1 mg/dL (<0.1-0.2); TOTAL BILIRUBIN 0.3 mg/dL (0.2-1.0); TOTAL PROTEIN 6.7 g/dL (6.4-8.2)
[2020-08-19 07:55] VITALS: BP 126/96
[2020-08-19 11:35] VITALS: BP 136/85
--- NOTE | 2020-08-19 11:50 | NUR ---
PT CARE ASSUMED AT 0700. A&Ox4. PT IS ANURIK. DIALYSIS MO,WED,FRI. NO DIARRHEA CURRENTLY. PT CONTINUES TO WHEEZE IN THE LOWER BASES. IS AT THE BEDSITE. 08/10 REMDESIVIR. 97% ON 5L. EJ CONTINUE TO BOTHER PATIENT AND REQUESTED A NEW IV. IV TEAM PLACED NEW IV ON R.FA 20G, SALINE LOCKED. ACCU CHECKS DC'D. PT UP IN THE RECLINER. NSR ON THE MONITOR. FALL PROTOCOL IN PLACE. CALL LIGHT IN REACH. WILL CONTINUE TO MONITOR.
--- NOTE | 2020-08-19 13:13 | NUR ---
AMARILIS reviewed chart and spoke with nursing and attending physician. Pt remains in Enhanced Isolation. Pt is afebrile and on 5L of O2. Pt is on IV abx and IV steroids. Pt is on Ivermectin and Remdesivir after dialysis treatment. AMARILIS spoke with Sherri at [facility] to provide update. AMARILIS faxed clinical info to [facility] for review. Sherri to discuss with the clinical field manager, if pt will be on a different dialysis schedule when discharged due to COVID. AMARILIS requested therapy evals to be ordered to assist with recommendations for discharge needs. AMARILIS is following to assist as needed with discharge planning.
[2020-08-19 15:30] VITALS: BP 142/90
[2020-08-19] MEDS ORDERED: LOPERAMIDE 2 MG2 MG PO (16:24)
[2020-08-19] MEDS ORDERED: LOPRESSOR50 PO (16:26)
[2020-08-19] MEDS ORDERED: CLONIDINE HCL0.1 MG PO (16:26)
[2020-08-19] MEDS ORDERED: RENA-VITE TABL0.8 MG PO (16:32)
[2020-08-19 19:34] VITALS: BP 143/98
--- NOTE | 2020-08-19 21:57 | NUR ---
PT IS HYPERVERBAL WITH STAFF AND TALKING ON PHONE WITH FRIENDS. PT IS NOT SOA WITH TALKING. PT SPEAKS VERY LOUDLY, [place]. O2 PER NC. LUNGS WHEEZES. FISTULA LEFTY. PT PROVIDED HS SNACK. PT USING BSC, REPORTS LOOSE STOOL.
[2020-08-20 03:21] VITALS: BP 143/94
[2020-08-20 06:29] LABS: ALBUMIN 2.9 g/dL (3.4-5.0); DIRECT BILIRUBIN < 0.1 mg/dL (<0.1-0.2); SGOT 21 U/L (15-37); SGPT 20 U/L (14-59); TOTAL BILIRUBIN 0.3 mg/dL (0.2-1.0); TOTAL PROTEIN 6.8 g/dL (6.4-8.2)
[2020-08-20 08:02] VITALS: BP 163/103
--- NOTE | 2020-08-20 12:57 | NUR ---
PT CARE ASSUMED AT 0700. A&Ox4. PT VERY HYPERVERBAL. DIALYSIS TODAY MO,WE,FR. FISTULA POSITIVE FOR THRILL AND BRUIT. IV PATENT WITH NO REDNESS OR EDEMA, SALINE LOCKED. WHEEZY AT THE BASIS. FAMILY UPDATED. STOOL NEGATIVE FOR C.DIFF. PT CONTINUES TO HAVE DUMPING SYNDROME IMMIDEATLY AFER EVERY MEAL. PT/OT ON BOARD. TITRATED DOWN TO 3L AND STAYING STABLE AT 96%. PT UP IN THE RECLINER MOST OF THE DAY AND ON THE PHONE ALL DAY. WILL CONTINUE TO MONITOR. CALL LIGHT IN REACH.
--- NOTE | 2020-08-20 14:51 | NUR ---
NOTE PER BRICKLAYER PAVING BRICK: SW spoke with nursing. Pt remains in Enhance Isolation. Pt is on 5L of O2. Pt to have dialysis today. PT/OT ordered to evaluate pt for discharge needs. No weekend discharge planned. SW spoke with pt via phone. Updated pt regarding possible need to change dialysis schedule temporarily due to being COVID positive. Pt states that her first positive test was on 08/15. Unsure if it was 08/08 or 08/15. 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 Pt had questions about transportation to/from dialysis if she needs to change her schedule. SW discussed possible post-acute care stay if recommended by therapy and clinical team. Pt unsure if she would want to go to a facility. SW is following to assist as needed with discharge planning. ABDIRIZAK Farmer
[2020-08-20 16:15] VITALS: BP 173/110
[2020-08-20 20:53] VITALS: BP 154/106
[2020-08-21 03:25] VITALS: BP 142/75
--- NOTE | 2020-08-21 04:30 | NUR ---
PROGRESS PT A/O X4 , ACTIVITY ORDER UP AD VICTOR HUGO BUT PT STAYED IN BED ALL NIGHT. BP ELEVATED PHYSICIAN AWARE NORVASC 10 MG PO STARTED TONIGHT. HAD DIALYSIS THIS EVENING WITH 2.5 LITERS REMOVED PT TOLERATED WITHOUT DIFFICULTY, FISTULA TO LEFTY WITH GOOD BRUIT AND TRILL. DINNER WAS COLD SO BOXED LUNCH AND MULTIPLE SNACKS GIVEN THROUGHOUT NIGHT. ACCUCHECKS CONTINUE. ON 2 LITERS O2 DOWN FROM 5 THIS AM WITH SATS AT 97%. TELEMETRY INTACT READING NSR WITH RATES IN 70'S TO 80'S. CONTINUE POC.
[2020-08-21 06:00] LABS: HEMATOCRIT 30.2 % (37.0-47.0); HEMOGLOBIN 9.6 gm/dL (12.0-15.0); MCH 27.2 pg (26.0-34.0); MCHC 31.8 g/dL (28.0-37.0); MCV 85.3 fL (80.0-100.0); RBC 3.54 mil/uL (4.20-5.00); WBC 3.6 thou/uL (4.0-11.0)
[2020-08-21 08:12] VITALS: BP 159/117
[2020-08-21 15:54] VITALS: BP 178/113
--- NOTE | 2020-08-21 18:33 | NUR ---
PATIENT ALERT ORIENTED X4. STAYED IN BED THROUGH THE DAY. NO DIARRHEA NOTED AT THIS TIME. APPETITE GOOD. CONT TO PROGRESS TOWARDS DISCHARGE. WILL CONT WITH PLAN OF CARE.
[2020-08-21 19:15] VITALS: BP 156/99
[2020-08-22 03:29] VITALS: BP 172/92
--- NOTE | 2020-08-22 04:56 | NUR ---
PROGRESS PT A/O X4, UP WITH MOD ASSIST PT VERY WEAK. PT REPORTED HEADACHE THAT SHE RATED A 10/10 HYDROCODONE GIVEN X 1 WITH EFFECT. ACCUCHECKS CONTINUE. PT IS EATING A LOT REQUESTS SNACKS THROUGHOUT NIGHT BOXED LUNCH GIVEN AND MULTIPLE REQUESTS FOR CUCA CRACKERS. PT SLEEPING ON AND OFF THROUGHOUT NOC ABLE TO MAKES NEEDS KNOWN DOES NOT GET OOB UNASSISTED. CONTINUE POC.
[2020-08-22 07:44] VITALS: BP 193/122
[2020-08-22 11:00] VITALS: BP 159/98
[2020-08-22 13:18] LABS: HEMATOCRIT 31.6 % (37.0-47.0); MCHC 31.7 g/dL (28.0-37.0); MCV 85.1 fL (80.0-100.0); RBC 3.71 mil/uL (4.20-5.00); RDW 16.5 % (10.5-14.5); WBC 5.4 thou/uL (4.0-11.0)
[2020-08-22 13:28] LABS: ALBUMIN 2.9 g/dL (3.4-5.0); CALCIUM 8.2 mg/dL (8.5-10.1); CREATININE 8.9 mg/dL (0.6-1.0); POTASSIUM 5.5 mmol/L (3.5-5.1); TOTAL BILIRUBIN 0.4 mg/dL (0.2-1.0); TOTAL PROTEIN 6.8 g/dL (6.4-8.2)
[2020-08-22 15:49] VITALS: BP 167/103
--- NOTE | 2020-08-22 18:32 | NUR ---
RN ASSUMED PT'S CARE AT 0700AM, PT IS A&OX3, PT IS ON COVID ISOLATION , PT DOES NOT HAVE SOB AND FEVER BY THIS TIME,PT WILL HAVE DIALYSIS TOMORROW.
[2020-08-22 19:38] VITALS: BP 151/100
[2020-08-23 04:24] VITALS: BP 166/119
[2020-08-23 07:11] VITALS: BP 201/100
[2020-08-23 09:06] VITALS: BP 151/83
[2020-08-23] MEDS ORDERED: VITAMIN D325 MC1 PO (11:57)
[2020-08-23] MEDS ORDERED: ACEROLA C500 MG PO (11:57)
[2020-08-23] MEDS ORDERED: CHOLESTYRAMINE L4 GM PO (11:57)
[2020-08-23] MEDS ORDERED: AMLODIPINE BESY10 MG PO (11:57)
[2020-08-23] MEDS ORDERED: HEMORRHOIDAL OI57 GM RECTAL (11:57)
[2020-08-23] MEDS ORDERED: LEVOFLOXACIN750 MG PO (11:57)
[2020-08-23] MEDS ORDERED: ZINC SULFATE 2220 MG PO (11:57)
[2020-08-23] MEDS ORDERED: PREDNISONE 20 M20 M1 PO (11:57)
[2020-08-23] MEDS ORDERED: MIRALAX17 GM PO (11:57)
[2020-08-23] MEDS ORDERED: PANCREAZE DR 11 EAC2 PO (11:57)
[2020-08-23] MEDS ORDERED: LOPERAMIDE 2 MG2 M1 PO (11:57)
[2020-08-23] MEDS ORDERED: CARVEDILOL12.5 MG PO (11:57)
--- NOTE | 2020-08-23 12:59 | NUR ---
SW reviewed chart and spoke with nursing and attending physician. Pt remains in Enhanced Isolation. Per attending, pt is ready for discharge today. Pt remains on 5L of O2. Pt is having dialysis today. Recommendation made for pt to go to post-acute care prior to returning home. AMARILIS spoke with pt via phone to discuss discharge plan. Pt states she would be okay with going to rehab. Pt asked about [facility]. SW explained that [facility] is unable to accept COVID pts at this time. SW offered to discuss with pt's dtr. Pt states she would call her dtr. SW received call from pt's dtr, Ramona, to discuss discharge plan. Pt and family are agreeable with post-acute placement. SW provided options for SNFs accepting COVID pts. Pt/family request referral to [facility] SNF due to location and having an onsite dialysis clinic. AMARILIS contacted Ti at [facility], who states they are only accepting their own residents back who are COVID positive. They are unable to take any new admissions. AMARILIS spoke with Ramona to discuss alternate options. Pt and family to consider . [facility] and [facility]. Awaiting input from the pt/family at this time. AMARILIS is following to assist as needed with discharge planning.
[2020-08-23 15:17] VITALS: BP 121/81
[2020-08-23 17:00] VITALS: BP 130/94
--- NOTE | 2020-08-23 18:35 | NUR ---
RN ASSUMED PT'S CARE AT 0700AM, PT IS A&0X3, PT'S VS ARE STABLE, PT DOES NOT HAVE SOB AND FEVER, PT IS TOLERATED DIALYSIS TODAY, REMOVAL 2500ML FLUID, PT MAY DISCHARGE TOMORROW.
[2020-08-23 20:17] VITALS: BP 160/99
[2020-08-24 03:25] VITALS: BP 154/92
--- NOTE | 2020-08-24 05:28 | NUR ---
PT VSS STABLE OVERNIGHT, BP IN BETTER RANGE AFTER DIALYSIS. PT ALSO STATES HER, "APPETITE IS BACK", WHILE REQUESTING MULTIPLE ITEMS TO EAT. DAUGHTER OF PT CALLED AND ASKED THAT THE GI PHYSICIAN CALL HER ABOUT HER MOTHER AND CONTINUATION OF DIARRHEA WITH HER MOM AND DISCHARGING BEFORE SHE IS READY. DAUGHTERS NAME AND NUMBER: GORGE BLAIR [phone].
[2020-08-24 07:13] VITALS: BP 181/98
--- NOTE | 2020-08-24 10:41 | NUR ---
DISCHARGE NOTE: AMARILIS reviewed chart and spoke with nursing and attending physician. Pt remains in Enhanced Isolation due to COVID. Pt is medically stable for discharge. Discharge order entered. AMARILIS contacted Margarita of [facility] liaison, who states they are able to accept pt today. AMARILIS spoke with pt's dtr, Ramona to provide update and notify of facility's acceptance. Ramona requests to speak with GI and attending physician prior to given consent for discharge. [facility] post-acute liaison to arrange transportation. AMARILIS is following to finalize discharge.
--- NOTE | 2020-08-24 12:04 | NUR ---
PT CARE ASSUMED AT 0700. A&Ox4. PT KEEPS COMING UP WITH EXCUSES TO NOT DISCHARGE THE HOSPITAL. SHE DOES NOT WANT TO LEAVE THE HOSPITAL TO GO TO [facility] BECAUSE THEY HAVE COVID, THE PT IS COVID+ HERESELF. SHE HAS HAD ONE LOOSE STOOL TODAY AND REFUSES TO DRINK HER CHOLCIFEROL DRINK. SHE CONTINUES TO PUT ON OXYGENE EVEN THOUGH SHE IS ON ROOMAIR. PT WAS AGITATED THIS AM [facility] STAFF AND WAS SHORT AND VERY DEMANDING. HYPERVERBAL. ACHS WITH NO COVERAGE NEEDED. PT IS TO DISCHARGE TO [facility]. DIALYSIS PT MO,WE,FR. NSR ON THE MONITOR. FALL PROTOCOL IN PLACE. CALL LIGHT IN REACH. WILL CONTINUE TO MONITOR.
[2020-08-24 12:20] VITALS: BP 138/85
[2020-08-24] MEDS ORDERED: COLESTID1 GM PO (12:47)
[2020-08-24] MEDS ORDERED: CLONIDINE HCL0.1 MG PO ×2 (12:47→13:38)
[2020-08-24 15:12] VITALS: BP 184/93
[2020-08-24 19:24] VITALS: BP 137/82
[2020-08-25] VITALS (7 sets, daily range): BP systolic 128–189; BP diastolic 62–87
[2020-08-25 06:48] LABS: CALCIUM 8.1 mg/dL (8.5-10.1); CREATININE 8.4 mg/dL (0.6-1.0); POTASSIUM 5.1 mmol/L (3.5-5.1)
--- NOTE | 2020-08-25 07:19 | NUR ---
SPOKE WITH PT DAUGHTER AT 0500 AM. SHE IS STILL CONCERNED ABOUT HER MOTHERS DC STATUS AND STILL HAVING DIARRHEA. GAVE SOME UPDATES ON NOTES. AT 0600 PT STATES SHE WAS HAVING HARD TIME BREATHING, PULSE OX PLACED AND ON RA PT WAS AT 98%. PT USES THIS WAY TO REQUEST FOOD AND DRINK. PT DID NOT SLEEP OVERNIGHT. PER PT DAUGHTER, PT IS NIGHT OWL. VSS.
[2020-08-25] MEDS ORDERED: HYDRALAZINE 2525 MG PO (09:19)
--- NOTE | 2020-08-25 11:42 | NUR ---
DISCHARGE NOTE: AMARILIS reviewed chart and spoke with nursing and attending physician. Pt is medically stable for discharge to SNF today. Pt having dialysis today. AMARILIS notified that [facility] and [facility] both have beds available and can accept pt. AMARILIS spoke with pt's dtr, Ramona, regarding facilities' acceptance. Pt's dtr states that pt prefers the [facility] facility. SW confirmed that [facility] is able to provide transportation to/from dialysis. AMARILIS spoke with Trista at [facility] who states they request pt arrive by 1045 to start dialysis around 1100. AMARILIS provided this info to Vy at [facility]. Wheelchair van transportation scheduled for 1500 per facility's arrangements. AMARILIS updated attending physician. SW faxed finalized discharge orders/summary to [facility]. Confirmed info was received. AMARILIS updated Ramona and pt via phone to notify of discharge time. Both are agreeable with plan. Vy at [facility] to contact pt's dtr to provide specific info regarding dropping off pt's belongings. AMARILIS notified Babar at [facility] and Genoveva at [facility] of pt choosing alternate facility. Chart copy has been completed. Nursing provided with number to call report. No additional SW needs identified at this time but is available to assist should needs arise.
--- NOTE | 2020-08-25 18:16 | NUR ---
RN ASSUMED PT'S CARE AT 0700AM, PT IS A&OX3, PT 'S VS ARE STABLE, PT DOES NOT HAVE SOB AND FEVER, PT IS CONTINUING COVID ISOLATION , PT IS TOLERATED DIALYSIS TODAY( REMOVAL 2500ML FLUID ), PT IS GOING TO DISCHARGE TO REHAB FACILITY TOMORROW, NO BED TODAY.
--- NOTE | 2020-08-25 22:01 | NUR ---
PT RESTING IN BED AWAKENED UPON ENTRY. PT PROVIDED HS SNACK. PT VERBALIZED SHE HAD WANTED TO BE DCD TODAY BUT THERE WAS NO BED AVAILABLE. PT USING [facility]SC. LEFTY FISTULA.
--- NOTE | 2020-08-26 01:49 | NUR ---
ASSUMED PT CARE APPROX 2315. PT SLEEPING UPON REPORT. PT RESTING IN BED WITHOUT INTERRUPTION OR OBSERVATION OF PAIN, DISCOMFORT, OR SOB. FREQUENT REPOSITIONING ENCOURAGED, PT SHIFTING INDEPENDENTLY WHILE IN BED. PT ENCOURAGED TO NOTIFY STAFF FOR ALL NEEDS, CALL LIGHT WITHIN REACH, BED ALARM ON, BED LOCKED IN LOWEST POSITION, ROOM REMAINS NEAR NURSES STATION, FREQUENT MONITORING WILL CONTINUE.
[2020-08-26 07:41] VITALS: BP 176/95
--- NOTE | 2020-08-26 09:01 | NUR ---
DISCHARGE NOTE: AMARILIS reviewed chart and spoke with nursing and attending physician. Pt is medically stable for discharge to [facility] today. AMARILIS spoke with Vy at [facility], who confirms they are able to accept pt today. Wheelchair van transportation scheduled for 1100 today. SW spoke with pt via phone. Pt is agreeable with discharge plan. SW left voice message for pt's dtr, Ramona. Chart copy has been completed. No changes to previous discharge orders. Nursing provided with number for report and notified of transportation time. Attending physician also notified. No additional SW needs identified at this time, but is available to assist should needs arise.
[2020-08-26] MEDS ORDERED: HYDRALAZINE 2525 MG PO (09:15)
[2020-08-26] MEDS ORDERED: HYOSCYAMINE0.125 M1 PO (09:15)
[2020-08-26] MEDS ORDERED: CLONIDINE HCL0.1 MG PO (09:15)
[2020-08-26] MEDS ORDERED: PREDNISONE 20 M20 M1 PO (09:15)
[2020-08-26] MEDS ORDERED: CARVEDILOL25 MG PO (10:16)
[2020-08-26] MEDS ORDERED: CARVEDILOL12.5 MG PO (10:20)
== END 2020-08-26 11:23 | DRG 871 ==
LOC: ER 11:25 → 3W 13:13 → EROBS 13:13 → 3W 22:09
PROVIDERS: Emergency Medicine; Hospitalist; Internal Medicine; Specialist; ADMIT Hospitalist; ATTEND Hospitalist
PROC: XW033E5 Introduction of Remdesivir Anti-infective into Peripheral Vein, Percutaneous Approach, New Technology Group 5 (ICD-10-PCS; principal; 2020-08-17)
PROC: 5A1D70Z Performance of Urinary Filtration, Intermittent, Less than 6 Hours Per Day (ICD-10-PCS; 2020-08-20)
PROC: 5A1D70Z Performance of Urinary Filtration, Intermittent, Less than 6 Hours Per Day (ICD-10-PCS; 2020-08-23)
PROC: 5A1D70Z Performance of Urinary Filtration, Intermittent, Less than 6 Hours Per Day (ICD-10-PCS; 2020-08-25)
DX: A41.89 Other specified sepsis (principal); U07.1 COVID-19; J96.01 Acute respiratory failure with hypoxia; N18.6 End stage renal disease; J12.82 Pneumonia due to coronavirus disease 2019; E46 Unspecified protein-calorie malnutrition; E87.1 Hypo-osmolality and hyponatremia; K21.9 Gastro-esophageal reflux disease without esophagitis; K52.9 Noninfective gastroenteritis and colitis, unspecified; D64.9 Anemia, unspecified; E11.22 Type 2 diabetes mellitus with diabetic chronic kidney disease; E78.5 Hyperlipidemia, unspecified; I12.9 Hypertensive chronic kidney disease with stage 1 through stage 4 chronic kidney disease, or unspecified chronic kidney disease; E87.5 Hyperkalemia; Z90.49 Acquired absence of other specified parts of digestive tract; Z79.899 Other long term (current) drug therapy; Z90.710 Acquired absence of both cervix and uterus; Z86.11 Personal history of tuberculosis; Z87.891 Personal history of nicotine dependence; Z82.49 Family history of ischemic heart disease and other diseases of the circulatory system; Z83.3 Family history of diabetes mellitus; Z87.11 Personal history of peptic ulcer disease; Z68.22 Body mass index [BMI] 22.0-22.9, adult
CPT/HCPCS: 10879; 32100

== ENCOUNTER 2020-10-14 11:11 | Inpatient (IN) | payer OTHER ==
[~2020-10-14] VITALS: Ht 165.1 cm; Wt 64.5 kg
--- NOTE | ~2020-10-14 | HC ---
[facility] [place] [address] CONSULTATION Name: IZA SINCLAIR Room #: 435-P ADM IN M.R.#: [id number] Admission: 10/14/20 Attend Phys: Kameron Denis MD Discharge: Date of : 50 Report #: [id number] THIS REPORT FOR: cc: Torin Mitchell James A. DO Al-Absi, Ahmed I. MD ~ DATE OF SERVICE: 10/15/2020 REASON FOR CONSULTATION: End-stage renal disease. REASON FOR PRESENTATION: Post fall. HISTORY OF PRESENT ILLNESS: The patient is 69-year-old female patient with past medical history of end-stage renal disease, maintained on hemodialysis every Sunday, Sunday and Sunday. She has history of hypertension, recent COVID-19 pneumonitis back in 08/2020. She had required a prolonged hospital stay and was then sent to rehab facility. She presented to the Emergency Room yesterday after a fall. She was found to have a fractured left femoral neck and was admitted for further evaluation and management. I was consulted to manage her end-stage renal disease. PAST MEDICAL AND SURGICAL HISTORY: 1. End-stage renal disease, maintained on hemodialysis every Sunday, Sunday and Sunday. 2. Recent COVID-19 pneumonitis. 3. Hypertension. 4. Hysterectomy. 5. Appendectomy. 6. Multiple dialysis access surgeries. 7. Hyperparathyroidism. 8. History of GI bleeding with gastric ulcers. 9. Carpal tunnel syndrome. ALLERGIES: None. ACTIVE MEDICATIONS: 1. Amlodipine. 2. Loperamide. 3. Ascorbic acid. 4. Hydralazine. 5. Clonidine. 6. Carvedilol. 7. ____. 8. Gabapentin. [facility] [place] [address] CONSULTATION Name: IZA SINCLAIR Room #: 435-P [facility] IN ..#: [id number] Admission: 10/14/20 Attend Phys: Kameron Denis MD Discharge: Date of : 50 Report #: [id number] SOCIAL HISTORY: She denies drug or alcohol abuse. FAMILY HISTORY: Significant for hypertension. REVIEW OF SYSTEMS: GENERAL: No fever or chills. CARDIOVASCULAR: No chest pain or palpitation. PULMONARY: No cough or hemoptysis. GASTROINTESTINAL: No nausea or vomiting. MUSCULOSKELETAL: As per the history of present illness. SKIN: No rash or ulcerations. NEUROLOGICAL: No headache, no dizziness. PHYSICAL EXAMINATION: GENERAL: The patient is alert, awake, oriented. She is in mild pain due to her left neck fracture. VITAL SIGNS: Blood pressure is 139/97, temperature is 37.2. Pulse rate is 90. HEAD AND NECK: No jugular venous distention, no bruit or thyromegaly. CHEST: Clear to auscultation bilaterally. CARDIOVASCULAR: Regular with no rub detected. ABDOMEN: Soft, nontender with no hepatosplenomegaly. EXTREMITIES: Lower extremities, no edema. Significant tenderness over the left hip area. LABORATORY VALUES: Hemoglobin is 11.3. Sodium is 139, potassium is 5.4, chloride is 99, carbon dioxide 26, BUN is 49, and creatinine 7.9. IMAGING: Lower extremity CT and x-rays reviewed. Chest x-ray reviewed, noted for chronic changes. ASSESSMENT AND PLAN: 1. End-stage renal disease. 2. Fractured left mid femur. Dialysis will be arranged for the patient before going to have surgery today. Okay to proceed to the OR for a total hip replacement after her surgery today. We will continue to follow during her hospital stay. By: [id number] Arlette Nascimento MD /nt
--- NOTE | ~2020-10-14 | HC ---
[facility] [place] [address] CONSULTATION Name: IZA SINCLAIR Room #: 458-P [facility] IN M.R.#: [id number] Admission: 10/14/20 Attend Phys: Kameron Denis MD Discharge: Date of : 50 Report #: [id number] THIS REPORT FOR: cc: Torin Mitchell James A. DO Smithson, David G. MD ~ DATE OF SERVICE: 10/18/2020 HISTORY OF PRESENT ILLNESS: The patient is a 69-year-old -Sammarinese female who was originally admitted to [facility] on 10/14/2020 after a fall at home from a ground level with acute left hip pain. She was found to have a left femoral neck fracture and she underwent a left hip hemiarthroplasty. She is allowed weightbearing as tolerated. She does have end-stage renal disease, on hemodialysis. She has a history of recent COVID-19 pneumonia with complications. We are seeing her in rehabilitation medicine consultation. PAST MEDICAL HISTORY: Includes the prior recent COVID-19 pneumonia. She has a history of a GI bleed secondary to gastric ulcer with a history of a perforated bowel. History of spinal stenosis, hypertension. She again has the end-stage renal disease, on hemodialysis. PAST SURGICAL HISTORY: Includes appendectomy, hysterectomy, tonsillectomy, and ischemic bowel with lysis of adhesions. FAMILY HISTORY: No pertinent family history. MEDICATIONS: Please see the full medication listing. ALLERGIES: No known drug allergies. SOCIAL HISTORY: Lives alone in an apartment. No stairs, has elevator access. She was independent with ADLs and IADLs was on dialysis 3 times per week. Denies that she would have family support. REVIEW OF SYSTEMS: No current complaints of chest pain, shortness of breath or abdominal discomfort. PHYSICAL EXAMINATION: GENERAL: A 69-year-old female in no obvious distress. VITAL SIGNS: Last recorded temperature is 37.2, pulse 102, respirations 18, and blood pressure 150/90. NEUROLOGIC: The patient is alert. She is oriented. She is cooperative, although a little frustrated with her condition. HEENT: Facies appeared symmetric. [address] [address] CONSULTATION Name: IZA SINCLAIR Room #: 458-P [facility] IN M.R.#: [id number] Admission: 10/14/20 Attend Phys: Kameron Denis MD Discharge: Date of : 50 Report #: [id number] EXTREMITIES: Functional range of motion of the upper extremities. Strength is probably a grade 4-/5. Her left hip is dressed. There is no focal calf swelling. She can dorsiflex that left ankle. She does have discomfort with moving that left hip. Right lower extremity strength is probably at least a grade 4-/5 with limited testing. On 10/16/2020, she was min assist sit to stand, min assist to take 2 to 3 small steps. ASSESSMENT: A 69-year-old -Sammarinese female with the following problem list: 1. Left femoral neck fracture, status post left hemiarthroplasty on 10/15/2020. 2. End-stage renal disease, on hemodialysis. 3. Recent COVID-19 pneumonia with complications. 4. Hypertension. 5. Spinal stenosis. 6. History of gastrointestinal bleed secondary to gastric ulcer with history of perforated bowel. PLAN: We are assessing the patient as far as her tolerance for therapies and seeing if she will meet criteria for an acute [facility] inpatient rehabilitation stay. At this point, we will continue to follow with you. By: 1140 1241 Pablo Vaz MD /nt
[~2020-10-14 11:11] MED LIST changes: +ACEROLA C500 MG PO; +AMLODIPINE BESY10 MG PO; +CARVEDILOL25 MG PO; +CHOLESTYRAMINE L4 GM PO; +CLONIDINE HCL0.1 MG PO; +COLESTID1 GM PO; +HEMORRHOIDAL OI57 GM RECTAL; +HYDRALAZINE 2525 MG PO; +HYOSCYAMINE0.125 M1 PO; +LEVOFLOXACIN750 MG PO; +LOPERAMIDE 2 MG2 M1 PO; +LOPERAMIDE 2 MG2 MG PO; +MIRALAX17 GM PO; +PANCREAZE DR 11 EAC2 PO; +PREDNISONE 20 M20 M1 PO; +RENA-VITE TABL0.8 MG PO; +VITAMIN D325 MC1 PO; +ZINC SULFATE 2220 MG PO
[2020-10-14 11:12] VITALS: BP 101/55
--- NOTE | 2020-10-14 13:03 | NUR ---
IV ACCESS TEAM PAGED TO INSERT IV.
[2020-10-14 13:26] LABS: HEMATOCRIT 38.1 % (37.0-47.0); HEMOGLOBIN 11.8 gm/dL (12.0-15.0); MCH 26.2 pg (26.0-34.0); MCV 84.4 fL (80.0-100.0); PLATELET COUNT 182 thou/uL (150-400); RBC 4.51 mil/uL (4.20-5.00); RDW 23.1 % (10.5-14.5); WBC 7.2 thou/uL (4.0-11.0)
[2020-10-14 13:36] LABS: CALCIUM 8.8 mg/dL (8.5-10.1); CREATININE 8.6 mg/dL (0.6-1.0); POTASSIUM 4.4 mmol/L (3.5-5.1)
[2020-10-14 13:42] LABS: ALBUMIN 3.7 g/dL (3.4-5.0); TOTAL BILIRUBIN 0.4 mg/dL (0.2-1.0); TOTAL PROTEIN 7.7 g/dL (6.4-8.2)
[2020-10-14 13:46] VITALS: BP 102/59
[2020-10-14 14:30] LABS: ABSOLUTE NEUTROPHILS 5.8 thou/uL (1.4-8.2); ANISOCYTOSIS 2+; PLATELET ESTIMATE NORMAL
--- NOTE | 2020-10-14 15:08 | NUR ---
PATIENT ARRIVED TO UNIT AT 1415. PATIENT IS A&OX4 C/O PAIN ON L HIP AND LEG 05/15. PROVIDER SAW PATIENT. ON REGULAR DIET, AWARE OF SALT RESTRICTIONS. RENAL CONSULT CALLED; DIALYSIS MWF. TEMP SHUNT PLACED L IJ. RESTING QUIETLY AND SPEAKING ON PHONE. IF SX NEEDED WILL BE NPO AFTER MIDNIGHT. EDUCATED ON ROBLEDO PLACEMENT. WILL CONTINUE TO MONITOR PATIENT
[2020-10-14] MEDS ORDERED: DICYCLOMINE HCL20 MG PO (15:28)
[2020-10-14] MEDS ORDERED: FLONASE 0.05%50 MCG NASAL (15:30)
[2020-10-14 15:38] VITALS: BP 108/63
[2020-10-14 17:21] LABS: FOLIC ACID > 100.0 ng/mL (8.6-58.9)
[2020-10-14 17:25] VITALS: BP 122/83
--- NOTE | 2020-10-14 18:15 | NUR ---
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 THIS NURSE CALLED [facility] [phone] AND ATTEMPTED TO LEAVE A MESSAGE HOWEVER MAILBOX WAS FULL. WILL ENDORSE TO [employer].
[2020-10-14 22:30] VITALS: BP 112/65
[2020-10-15] VITALS (8 sets, daily range): BP systolic 126–139; BP diastolic 86–97
--- NOTE | 2020-10-15 02:39 | NUR ---
PT AOX4. PT WITH RANDOM CONVERSATIONS WITHOUT PROMPTING. PT REPORTS 10/10 PAIN IN RIGHT HIP. PT RECEIVING PRN PO NORCO Q6HR. PT DENIES SOB WHILE ON ROOM AIR. PT TOLERATING PO INTAKE OF FLUIDS AND REGULAR DIET WITHOUT ISSUE, NPO AT MIDNIGHT. PT REPORTS ANURIA DUE TO ESRD. PT REFUSING ROBLEDO SHE EXPRESSES BAD PAST EXPERIENCE WITH BURNING AND PAIN. PROVIDED REASSURANCE TO PT THAT WISHES WILL BE RESPECTED, BEDPAN OFFERED. PT RESTING IN BED THROUGHOUT SHIFT, FREQUENT REPOSITIONING ENCOURAGED. PT REFUSING MOST POSITION CHANGES PT NOTED TO HAVE INCREASED PAIN WITH REPOSITIONING AND TACTILE STIMULATION. ONCALL POWERTRAIN CALIBRATION ENGINEER NOTIFIED PT NPO WITH PO PRN MEDS, EMAR UPDATED. SENSATION INTACT THROUGHOUT, CAPILLARY REFILL LESS THAN 3SEC IN ALL EXTREMITIES, PALPABLE PERIPHERAL PULSES, EDEMA TO LLE. PT ENCOURAGED TO NOTIFY STAFF FOR ALL NEEDS, CALL LIGHT WITHIN REACH, BED ALARM ON, BED LOCKED IN LOWEST POSITION, ROOM REMAINS NEAR NURSES STATION. FREQUENT MONITORING WILL CONTINUE.
[2020-10-15 04:39] LABS: ABSOLUTE NEUTROPHILS 4.2 thou/uL (1.4-8.2); BASOPHILS 1.5 % (0.0-2.0); EOSINOPHILS 3.9 % (0.0-3.0); HEMATOCRIT 36.7 % (37.0-47.0); HEMOGLOBIN 11.3 gm/dL (12.0-15.0); LYMPHOCYTES 12.1 % (24.0-44.0); MCH 26.2 pg (26.0-34.0); MCHC 30.8 g/dL (28.0-37.0); MCV 84.9 fL (80.0-100.0); MONOCYTES 9.3 % (1.0-8.0); PLATELET COUNT 164 thou/uL (150-400); POLYS 73.2 % (36.0-66.0); RBC 4.32 mil/uL (4.20-5.00); WBC 5.7 thou/uL (4.0-11.0)
[2020-10-15 04:59] LABS: CALCIUM 8.6 mg/dL (8.5-10.1); MAGNESIUM 1.8 mg/dL (1.8-2.4)
[2020-10-15 05:51] LABS: CREATININE 10.9 mg/dL (0.6-1.0); POTASSIUM 5.4 mmol/L (3.5-5.1)
--- NOTE | 2020-10-15 06:35 | NUR ---
ORDERS RECEIVED, CHART REVIEWED. PATIENT ADMITS WITH L HIP FX, CHART INDICATES SURGERY TODAY. WILL PLACE ON HOLD AND AWAIT POST OP ORDERS TO START OT EVAL.
--- NOTE | 2020-10-15 09:31 | NUR ---
PATIENT RECEIVED PREFERED FACILITY AND BPCI LETTER. [facility]
--- NOTE | 2020-10-15 10:40 | NUR ---
ASSESSMENT: CM REVIEWED CHART AND SPOKE WITH PATIENT. PT WAS ADMITTED AFTER A FALL AND HAS A LEFT HIP FX. PT IS GO FOR LEFT HEMIARTHROPLASTY TODAY. PT HAS HX OF ESRD AND GETS DIALYSIS MWF AT [facility] [address] AND USES [employer] FOR TRANSPORTATION. PT REPORTS SHE JUST RECENTLY GOT HOME LAST WEEK FROM [facility] LOCATION WHERE SHE WAS FOR SNF. PT REPORTS SHE LIVES IN AN APT ALONE AND HAS AN ELEVATOR TO ENTER. PT REPORTS SHE [facility] CM NOTIFIED KATHRYN FINNEGAN FROM [facility] OF PATIENTS ADMISSION AND ALSO FAXED CLINICAL. CM ALSO CONTACTED [facility] AND SPOKE WITH JONAH VANG TO NOTIFY OF ADMISSION. SHE REQUEST D/C PAPERWORK BE FAXED TO THEM AT [phone]. [facility] HAS BEEN CONSULTED TO SEE PATIENT AND [facility] POST SURGERY. PT REPORTS SHE IS HOPING SHE WILL NOT NEED TO GO TO SNF AGAIN AND IS OPEN TO POSSIBLY GOING TO [facility]. PT IS TO HAVE SURGERY TODAY AND WILL AWAIT TO SEE HOW SHE DOES WITH PT/OT POST OP. CM WILL CONTINUE TO FOLLOW TO ASSIST NEEDED.
--- NOTE | 2020-10-15 15:11 | NUR ---
PT ASSESSED AT START OF SHIFT. PT RECEIVED DIALYSIS TREATMENT THIS AM. C/O MUCH LT HIP PAIN AND WAS MEDICATED PER ORDERS W/ SOME RELIEF. PT REFUSED TO ALLOW US TO TURN OR REPOSITION HER FOR ADDITIONAL COMFORT AND TO PREVENT PRESSURE SORES. WENT TO OR AT 1230 PER BED. PT WILL BE TRANSFERRED TO 458 AFTER SURGERY. BELONGINGS MOVED TO NEW ROOM. RECOVERY ROOM NOTIFIED OF PT TRANSFER.
--- NOTE | 2020-10-15 19:46 | NUR ---
PT RETURNED FROM SURGERY 1645 AWAKE BUT DROWSY AND NO C/O PAIN. VSS. O2 SAT 98% ON 3L. PT VERY SLEEPY SO MEDS NOT GIVEN UNTIL FULLY AWAKE FOR SAFETY. ABDUCTOR PILLOW IN PLACE. LT HIP JOSE DSNG DRY W/ ICE PACK IN PLACE. SCD'S IN PLACE.
--- NOTE | 2020-10-16 05:08 | NUR ---
UPON SHIFT REPORT, PT NOTED TO BE DROWSY, EASILY AROUSABLE. UPON SHIFT ASSESSMENT, PT AOX4. PT REPORTS 10/10 PAIN IN LEFT HIP. PT RECEIVING PRN IV FENTANYL Q4HR WITH PRN PO OXYCODONE Q4HR AVAILABLE. PT DENIES SOB AT REST WHILE ON 2.5L O2 VIA NC. PT TOLERATING PO INTAKE OF CLEAR LIQUIDS WITHOUT ISSUE, DIET ADVANCED TO RENAL PER ORDERS, NO ISSUES NOTED. PT WITHOUT NAUSEA OR EMESIS. PT ANURIC, NO VOIDS THIS SHIFT. PT RESTING IN BED THROUGHOUT SHIFT, ABDUCTOR PILLOW IN PLACE, FREQUENT REPOSITIONING ENCOURAGED. REPOSITIONING ASSISTANCE PROVIDED WITH PILLOWS FOR SUPPORT, PT REFUSING TO REPOSITION THEREAFTER DUE TO REPORTS OF RELIEF ON BOTTOM. SENSATION INTACT, CAPILLARY REFILL LESS THAN 3SEC IN ALL EXTREMITIES, BUE PULSES PALPABLE, BLE PULSES FAINT. PT ENCOURAGED TO NOTIFY STAFF FOR ALL NEEDS, CALL LIGHT WITHIN REACH, BED ALARM ON, BED LOCKED IN LOWEST POSITION, FREQUENT MONITORING WILL CONTINUE.
[2020-10-16 05:36] LABS: HEMATOCRIT 38.8 % (37.0-47.0); HEMOGLOBIN 11.8 gm/dL (12.0-15.0); MCHC 30.5 g/dL (28.0-37.0); MCV 85.3 fL (80.0-100.0); RBC 4.55 mil/uL (4.20-5.00); RDW 23.1 % (10.5-14.5); WBC 6.6 thou/uL (4.0-11.0)
[2020-10-16 05:40] LABS: CALCIUM 8.8 mg/dL (8.5-10.1); POTASSIUM 5.7 mmol/L (3.5-5.1)
--- NOTE | 2020-10-16 13:02 | O ---
[facility] [place] [address] OPERATIVE REPORT Name: IZA SINCLAIR Room #: 458-P ADM IN M.R.#: [id number] Admission: 10/14/20 Attend Phys: Kameron Denis MD Discharge: Date of : 50 Report #: [id number] THIS REPORT FOR: cc: Torin Mitchell James A. DO Yager, Craig A. MD ~ DATE OF SERVICE: 10/15/2020 PREPROCEDURE DIAGNOSIS: Left femoral neck fracture. POSTPROCEDURE DIAGNOSIS: Left femoral neck fracture. PROCEDURE: Left hip hemiarthroplasty. ANESTHESIA: General. INDICATIONS: This is a 69-year-old female with history of end-stage renal disease, on dialysis for the last 6 years. She sustained a ground level fall when ambulating in her home with her wheeled walker. She was brought to the Emergency Department and diagnosed with a femoral neck fracture. After discussion of treatment options with the patient, decision made to proceed with left hip hemiarthroplasty. Risks and benefits were discussed and informed consent was obtained. DESCRIPTION OF PROCEDURE: The patient was brought back to the operating room and anesthesia was begun. Once satisfactory anesthesia was achieved, the patient was positioned in the right lateral decubitus position. The operative left lower extremity was then prepped and draped in the usual sterile fashion. After prepping and draping, once all members of the surgical team were present, a time-out was called and the appropriate patient, site, procedure as well as the administration of preprocedure antibiotics was confirmed. Standard posterolateral incision was made. This was carried sharply through the skin down to the level of the IT band. IT band was transected in line with the femur. Charnley retractor was placed. Hip was placed in internal rotation. Bursal tissue was swept posteriorly. Piriformis tendon was removed from its insertion on the femur. This was tagged for later repair. Posterior capsule was released down to the level of the lesser trochanter. The posterior capsule was tagged with a #5 FiberWire suture. Fracture site was encountered and utilizing a corkscrew, the head ball was removed and sized. Trial implant was placed. Head ball trial was used with excellent suction. The leg was then positioned in the 90/90 position and a Cobra was placed under the femoral neck utilizing a microsagittal saw. A femoral neck osteotomy was performed. This was completed with a 1-inch straight osteotome. Broaching was then performed. Sequential broaching was performed up to a size 7 stem. This was impacted and the femoral neck planer was used to plane the neck appropriately. A size [address] [address] OPERATIVE REPORT Name: KATE SINCLAIRMONICA GERMANON Room #: 458-P [facility] IN M.R.#: [id number] Admission: 10/14/20 Attend Phys: Kameron Denis MD Discharge: Date of : 50 Report #: [id number] adjustment sleeve was trialled. It was felt that the limb was short and a +4 mm neck adjustment sleeve was trialed and felt to be appropriate. Stem was stable after removal of trial components. A size 7 stem was chosen and impacted into place after careful irrigation of the acetabulum, ensuring that there were no bony fragments present. The +4 mm neck adjustment sleeve and a 46 mm head ball were impacted into place. Hip was reduced, taken through range of motion. Shuck was stable. Hip was stable at 80 degrees of internal rotation and 90 degrees of flexion. Posterior capsular structures were repaired over bone tunnels with #5 FiberWire suture in a horizontal mattress fashion. Piriformis was attached over bone tunnels with a #5 FiberWire suture. Irrigation was again performed. IT band was closed with #5 FiberWire suture in a [id number] fashion. A 0 Vicryl was used to close the deep layer, 2-0 Vicryl for the dermal layer, and 3-0 Monocryl for the skin and Dermabond and a Wiggins and Nephew JOSE dressing were placed as final dressings. The patient tolerated the procedure well. There were no complications. COMPLICATIONS: None. ESTIMATED BLOOD LOSS: 100 mL. DISPOSITION: The patient will be weightbearing as tolerated with posterior hip precautions. Plan for followup as outpatient in 3 weeks. <ELECTRONICALLY SIGNED> By: Amauri Lindo MD 10/16/20 1302 [id number] Amauri Lindo MD /nt
[2020-10-16 16:37] VITALS: BP 122/76
--- NOTE | 2020-10-16 17:53 | NUR ---
ASSUMED CARE OF PATIENT AT 0700. ASSESSMENT CHARTED. MEDICATIONS ADMINISTERED PER EMAR. VSS. PATIENT IS A&OX4 AND ABLE TO MAKE NEEDS KNOWN. C/O PAIN ON L HIP RADIATING DOWN LEG, PARTIALLY RELIEVED WITH PRN PAIN MEDICATIONS. PATIENT ON BEDREST; PT/OT ATTEMPTED TO WORK WITH PATIENT W POOR PROGRESS, SEE PT/OT NOTES. PATIENT OFFERED FREQUENT REPOSITIONING BUT REFUSING. ABDUCTOR PILLOW IN PLACE; PATIENT C/O DISCOMFORT. PILLOW REPOSITIONED AT BEST CAPABILITY OF NURSING STAFF. PATIENT ALSO EDUCATED ON IMPORTANT OF KEEPING L LEG STRAIGHT AND ABDUCTOR PILLOW IN PLACE. TOLERATING DIET W NO ISSUES. CALLS FOR BEDPAN NEEDED. NEW IV ON R HAND SALINE LOCKED W NO ISSUES. FALL PRECAUTIONS IN PLACE. WILL CONTINUE TO MONITOR AND FOLLOW PLAN OF CARE
[2020-10-16 19:52] VITALS: BP 159/82
--- NOTE | 2020-10-17 05:52 | NUR ---
RECIEVED CARE OF THIS PATIENT AT 1900. PATIENT ALERT AND ORIENTED X4. DRESSING ON L HIP D/T. HAS ABDUCTOR PILLOW BETWEEN LEGS. TEMP AV SHUNT IN L UPPER ARM. OLD AV SHUNT IN STEVO. ICE APPLIED TO INCISION IN LHIP. O2 AT 2.5L/NC. C/O PAIN, MED GIVEN. SLEPT MOST OF NIGHT.
[2020-10-17 09:01] LABS: ALBUMIN 3.3 g/dL (3.4-5.0); CALCIUM 8.9 mg/dL (8.5-10.1); PHOSPHORUS 5.2 mg/dL (2.6-4.7)
[2020-10-17 09:11] LABS: CREATININE 10.3 mg/dL (0.6-1.0)
[2020-10-17 09:19] VITALS: BP 167/113
--- NOTE | 2020-10-17 17:32 | NUR ---
ASSUMED CARE OF PATIENT AT SHIFT CHANGE. ASSESSMENT CHARTED. MEDICATIONS ADMINISTERED PER EMAR. BP HIGH; PATIENT C/O SEVERE HIP PAIN. PRN PO ANALGESIC ADMINISTERED AND PROVIDED SOME RELIEF. PATIENT LABS INDICATED HIGH K+ LEVELS. PROVIDERS AWARE AND NEWE ORDERS WERE ACKNOWLEDGED AND IMPLEMENTED. FREQUENT REPOSITIONING OFFERED; PATIENT REFUSING. PATIENT TO HAVE DIALYSIS M/W/F. PLAN FOR PATIENT IS TO BE ASSESSED FOR [facility]. VOICES NO OTHER NEEDS BESIDES PAIN. WILL CONTINUE TO MONITOR PATIENT
[2020-10-17 17:42] VITALS: BP 159/106
[2020-10-17 20:29] VITALS: BP 168/91
--- NOTE | 2020-10-18 03:47 | NUR ---
PT IS A/O X4 AND IS UP WITH PHYSICAL THERAPY. REFUSES TO BE REPOSITIONED OR ASSISTED TO THE BSC. ROOM AIR WITH 2 LITERS NC AVAILABLE PRN. DRSG TO LEFT HIP IS C/D/I. ABDUCTOR PILLOW, AND SCD'S IN PLACE. PT RATES PAIN AT A 10 AND STATES IT IS CONSTANT. AT TIMES IS HEARD YELLING. PO AND IV PRN PAIN MEDICATION GIVEN FREQUENTLY. REFUSED HEPARIN SHOT. ATTEMPTED EDUCATING PT ON THE IMPORTANCE. PT STATED THAT THE SHOT HAD NOTHING TO DO WITH HER PAIN AND THAT SHE ISN'T GOING TO TAKE IT. ICE PACK TO LEFT HIP PLACED. FALL PRECAUTIONS IMPLEMENTED, CALL LIGHT IS WITHIN REACH.
[2020-10-18 04:04] VITALS: BP 155/94
[2020-10-18 08:19] VITALS: BP 150/90
--- NOTE | 2020-10-18 12:47 | NUR ---
Assumed pt care at 7am.Assessment completed.vss.Pt in bed receiving hemodialysis at the beginning of shift.Am meds given post dialysis.Dr Sethi and Mo here.Pt will be dc to rehab later today.Pt c/o generalized pain and po med given but few minutes later,she requested for iv med.It was given when due.Pt in bed eating lunch at present.Per wire turning machine operator report, 2liter of fluid was taken off today.Will continue to monitor.
[2020-10-18 15:33] VITALS: BP 121/84
--- NOTE | 2020-10-18 15:37 | NUR ---
[facility] FOLLOWED UP ON PT. THEY INDICATED THAT SHE IS A BUMDLE PT AND THAT THEY AREN'T ABLE TO ACCEPT HER THEY CAN'T [place] THAT THEY CAN DISHCARGE HER TO HOME. CM NOTIFIED PT OF THIS THIS AM AND TRIED TO OFFER HER SKILLED OPTIONS. SHE INDICATED THAT SHE WASN'T RECEPTIVE TO GOING ANYWHERE IF IT WASN'T HERE. CM NOTIFIED HOSPITALIST. CM TO APPROACH AGAIN.
[2020-10-18 20:30] VITALS: BP 106/49
--- NOTE | 2020-10-19 01:07 | NUR ---
ASSESSMENT COMPLETED AT 2024 HRS. PT SETTLED IN NEW ROOM-TRANSFER FROM [facility]. PT IS ALERT AND ORIENTED. STABLE ON 09/07.5L/NC.LEFT HIP WITH JOSE DRSG C/D/I, ICE SEMAJ APPLIED. ABDUCTOR PILLOW IN PLACE. LEFT LEG IS VERY TENDER AND SENSITIVE TO TOUCH.PT C/O 9/10 PAIN, GIVEN OXY PRN-PT APPEARS TO BE RESTING AT THIS TIME. CALLS WITH NEEDS.
[2020-10-19 07:30] VITALS: BP 128/92
--- NOTE | 2020-10-19 13:06 | NUR ---
ON-GOING ASSESSMENT: CM REVIEWED CHART AND SPOKE WITH PATIENT. [facility] STATING THEY ARE UNSURE IF THEY CAN ACCEPT PATIENT AT THIS TIME THEY ARE UNCLEAR SHE WILL BE ABLE TO TOLERATE THE THERAPY. CM DISCUSSED WITH PATIENT AND SHE REPORTS THAT IF SHE IS UNABLE TO GO TO [facility] SHE IS NOT AGREEABLE TO GO TO SNF AND SHE IS GOING HOME. CM DISCUSSED SHE FEELS SHE WILL BE ABLE TO DO MORE WHEN IN LESS PAIN. CM WILL CONTINUE TO FOLLOW TO ASSIST NEEDED. ReshmaN IS CONTINUING TO FOLLOW TO SEE HOW SHE PROGRESSES WITH PT/OT.
[2020-10-19 16:50] VITALS: BP 141/99
[2020-10-19 19:02] VITALS: BP 122/71
--- NOTE | 2020-10-19 19:48 | NUR ---
Assumed pt care this am. Pt is alert & oriented x4 but anxious at times. Pt has a total left hip replacement. Pt has L UA fistula and has dialysis on //. Removed IV due to IV infiltrated. Pt is on 02 NC @ 2.5L/min. Pt complains of pain and nausea. Given pain and nausea painn. Hold epoetin ken as Dr Sethi ordered. Plan is to go to rehab. Pt is on the bed, bed on the lowest position, side rails up x2, call light within reach. Follow POC. Endorse night nurse.
--- NOTE | 2020-10-20 03:55 | NUR ---
PT WAS OBSERVED CROSSING HER L LEG OVER TOWARDS THE R.EDUCATION GIVEN FOR HIP PRECAUTIONS.PT'S PAIN MANAGED WITH MED.L HIP DRSG C/D/I.L UPPER ARM FISTULA POSITIVE FOR THRILL AND BRUIT.PT CONT ON 2.5L/NC.PT SLEEPING ON HER BED AT THIS TIME.CALL LIGHT WITHIN REACH.
[2020-10-20 05:58] LABS: HEMATOCRIT 35.2 % (37.0-47.0); HEMOGLOBIN 10.7 gm/dL (12.0-15.0); MCH 25.3 pg (26.0-34.0); MCHC 30.4 g/dL (28.0-37.0); MCV 83.2 fL (80.0-100.0); RBC 4.23 mil/uL (4.20-5.00); RDW 21.8 % (10.5-14.5); WBC 5.6 thou/uL (4.0-11.0)
[2020-10-20 06:38] LABS: CALCIUM 9.7 mg/dL (8.5-10.1); CREATININE 9.8 mg/dL (0.6-1.0); POTASSIUM 5.2 mmol/L (3.5-5.1)
[2020-10-20 07:30] VITALS: BP 146/100
--- NOTE | 2020-10-20 13:47 | NUR ---
ON-GOING ASSESSMENT: CM REVIEWED CHART AND SPOKE WITH ATTENDING. STILL CONTINUING TO WORK ON PAIN CONTROL AND WITH THERAPY. PT WILL HAVE TO SHOW PROGRESS WITH THERAPIES IN ORDER TO BE A CANIDATE FOR [facility]. [facility] IS FOLLOWING AND PENDING HOW SHE PROGRESSES MAY BE A CANIDATE FOR [facility]. THERAPIES WILL SEE PATIENT AGAIN IN THE AM. CM WILL CONTINUE TO FOLLOW TO Assist NEEDED. PT CONTINUES TO REFUSE SNF IF SHE CANNOT GO TO [facility].
[2020-10-20 16:03] VITALS: BP 118/77
--- NOTE | 2020-10-20 18:44 | NUR ---
Assumed pt care this am. Pt is alert & oriented but irritated at times. Pt has no IV access. Pt has O2 2L @ 2L/min. Daughter at the bedside in this am. Pt had hemodialysis today. Pt on the bed, bed on the lowest position, side rails up, call light within reach. Will continue to monitor pt. Follow POC. Endorse night nurse.
[2020-10-20 22:10] VITALS: BP 144/79
--- NOTE | 2020-10-21 02:04 | NUR ---
ASSESSED AT START OF SHIFT. PT A&OX4 C/O PAIN IN LEFT HIP. PAIN MEDICATION GIVEN AND ICE PACK PROVIDED. PT ANURIC. EVENING MEDS GIVEN AND PT CESARIO IT WELL. MELATONING GIVEN FOR SLEEP. FALL PREC IN PLACE AND CALL LIGHT AT REACH WILL CONT TO MONITOR.
[2020-10-21 04:55] VITALS: BP 137/75
[2020-10-21 07:40] VITALS: BP 139/88
--- NOTE | 2020-10-21 13:58 | NUR ---
[facility] evaled patient and reports not a candidate for acute rehab. Gave patient [employer] list to review. Interest in Helga/Lillie to receive dialysis on site.
--- NOTE | 2020-10-21 14:04 | NUR ---
FAXED REFERRAL TO [facility] WITH PROBABLE DISCHARGE TOMORROW, 10/22/20. CONFIRMED WITH JANAY/LIAISON THAT REFERRAL WAS SENT AND SHE WILL REVIEW. [facility] P [phone]; FAX [phone]
--- NOTE | 2020-10-21 15:59 | NUR ---
Patient complains of pain in left ankle, asking to have it checked with X-ray, reported to Dr. Sethi.
[2020-10-21 16:10] VITALS: BP 133/95
[2020-10-21 19:34] VITALS: BP 124/85
--- NOTE | 2020-10-22 02:53 | NUR ---
ASSESSED AT START OF SHIFT PT C/O PAIN OXYCODONE GIVEN. REPOSITIONED FOR COMFORT ICE BAG PROVIDED. EVENING MEDS GIVEN AND PT CESARIO IT WELL. FALL PREC IN PLACE AND CALL LIGHT AT REACH WILL CONT TO MONITOR.
[2020-10-22 05:23] LABS: HEMATOCRIT 34.6 % (37.0-47.0); HEMOGLOBIN 10.5 gm/dL (12.0-15.0); MCH 25.4 pg (26.0-34.0); MCHC 30.4 g/dL (28.0-37.0); MCV 83.5 fL (80.0-100.0); RBC 4.14 mil/uL (4.20-5.00); RDW 21.4 % (10.5-14.5); WBC 5.3 thou/uL (4.0-11.0)
[2020-10-22 05:42] LABS: CALCIUM 9.8 mg/dL (8.5-10.1); POTASSIUM 4.8 mmol/L (3.5-5.1)
[2020-10-22 05:45] LABS: CREATININE 8.8 mg/dL (0.6-1.0)
[2020-10-22 07:29] VITALS: BP 155/106
--- NOTE | 2020-10-22 11:08 | NUR ---
PT ACCEPTED AT [facility]. YOHANA W/[facility] WILL ARRANGE TRANSPORTATION W/ 2L OF O2 FOR 1529. PT NOTIFIED. US ASKED TO MAKE CHART COPY. MIMI PAN VM FOR GORGE/ALISSA [phone].RN GIVEN NUMBER TO CALL REPORT - SUB ACUTE [phone].
[2020-10-22] MEDS ORDERED: RENVELA800 MG PO (14:35)
[2020-10-22 14:43] VITALS: BP 109/75
--- NOTE | 2020-10-22 15:26 | NUR ---
ASSUMED PT CARE THIS AM. PT IS ALERT & ORIENTED X4. PT HAS NO IV ACCESS AND L FA FISTULA. PT HAD DIALYSIS TODAY AND HAD 1789 ML OUTPUT. pT C/O OF PAIN AND GIVEN OXYCODONE TODAY. GIVEN HAND OFF PT REPORT TO [facility] (LUZ MARINA-NURSE). PT DAUGHTER REQUESTED TO FAX THE FORM TO PT JOB DUE WAS NOT ABLE TO WORK FOR 2 MONTHS. VS TAKEN BEFORE DISCHARGE. [facility] PICK HER UP TODAY VIA WHEELCHAIR.
== END 2020-10-22 15:32 | DRG 521 ==
LOC: ER 11:11 → EROBS 13:17 → 4S 13:17 → 4W 13:17 → 4S 13:55 → 4W 10-15 15:45 → 4S 10-18 19:43
PROVIDERS: Emergency Medicine; Hospitalist; Internal Medicine Nephrology; Nurse Practitioner; ADMIT Surgery; ATTEND Surgery
PROC: 5A1D70Z Performance of Urinary Filtration, Intermittent, Less than 6 Hours Per Day (ICD-10-PCS; principal; 2020-10-15)
PROC: 0SRS0JZ Replacement of Left Hip Joint, Femoral Surface with Synthetic Substitute, Open Approach (ICD-10-PCS; principal; 2020-10-15)
PROC: 5A1D70Z Performance of Urinary Filtration, Intermittent, Less than 6 Hours Per Day (ICD-10-PCS; 2020-10-16)
PROC: 5A1D70Z Performance of Urinary Filtration, Intermittent, Less than 6 Hours Per Day (ICD-10-PCS; 2020-10-18)
PROC: 5A1D70Z Performance of Urinary Filtration, Intermittent, Less than 6 Hours Per Day (ICD-10-PCS; 2020-10-20)
PROC: 5A1D70Z Performance of Urinary Filtration, Intermittent, Less than 6 Hours Per Day (ICD-10-PCS; 2020-10-22)
DX: S72.012A Unspecified intracapsular fracture of left femur, initial encounter for closed fracture (principal); N18.6 End stage renal disease; D62 Acute posthemorrhagic anemia; I12.0 Hypertensive chronic kidney disease with stage 5 chronic kidney disease or end stage renal disease; K21.9 Gastro-esophageal reflux disease without esophagitis; R53.81 Other malaise; E05.90 Thyrotoxicosis, unspecified without thyrotoxic crisis or storm; M48.00 Spinal stenosis, site unspecified; E87.5 Hyperkalemia; Z79.899 Other long term (current) drug therapy; W18.39XA Other fall on same level, initial encounter; Y93.89 Activity, other specified; Y92.098 Other place in other non-institutional residence as the place of occurrence of the external cause; Y99.8 Other external cause status; Z90.49 Acquired absence of other specified parts of digestive tract; Z90.711 Acquired absence of uterus with remaining cervical stump; Z87.891 Personal history of nicotine dependence; Z82.49 Family history of ischemic heart disease and other diseases of the circulatory system; Z87.01 Personal history of pneumonia (recurrent); Z99.2 Dependence on renal dialysis
CPT/HCPCS: 10040; 10102; 10195; 32100; 50010; 50101; 50382; 50414; 53000; 53078; 54118; 56527; 56528; 56530; 56531; 57095; 57103; 58605; 62110; 62900; 70005